=== PATIENT | male | born 2000 | race Caucasian/White ===

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

== ENCOUNTER 2020-03-05 17:42 | Emergency (ER) | payer OTHER, SELFPAY ==
[2020-03-05] VITALS (7 sets, daily range): BP systolic 101–119; BP diastolic 62–90; PULSE 68–103; RESP 14–16; TEMP 36.7; O2SAT 96–100
--- NOTE | 2020-03-05 18:16 | W.ED.SYNCOPE ---
HPI - Syncope General: Chief Complaint: Syncope Stated Complaint: NAUSEA, SYNCOPE Time Seen by Provider: 03/05/20 18:16 Source: patient Mode of arrival: ambulatory Limitations: no limitations History of Present Illness: HPI narrative: 20-year-old male comes in today with feeling of lightheadedness and presyncopal symptoms. Patient is a type I diabetic. Patient admits he does not routinely check his blood sugar. Patient states he usually gives 1 unit per 2 g of carbs routinely before each meal. And takes a basal acting insulin each night. Patient does do an occasional glucose check and then uses a sliding scale as needed. Patient reports being at work today and feeling lightheaded and like he was going to pass out. Patient reports some respiratory symptoms with a mild postnasal drip, sore throat, and cough for the last 2 to 3 days. Last glucose check was yesterday and it was 350. Review of Systems General: Reports: 10 or more systems reviewed and unremarkable except in HPI and below ENMT: Reports: throat pain Neuro: Reports: dizziness PFSH ED PFSH: Medical History (Updated 03/05/20 @ 21:31 by CHELSEA George) Diabetes Family History (Updated 07/09/19 @ 14:58 by Jr Morales MD) Other CAD (coronary artery disease) Social History (Updated 07/09/19 @ 14:58 by Jr Morales MD) Smoking and tobacco status: never smoked Alcohol intake: never Physical Exam Const: COMMON NORMALS: no acute distress and patient oriented x3 GENERAL APPEARANCE: cooperative HENMT: COMMON NORMALS: normocephalic, TM's normal bilaterally and Normal external nose present HEAD & SCALP: normal to inspection and normocephalic NOSE: Normal external nose present TYMPANIC MEMBRANE: TM's normal bilaterally MOUTH: Normal oral and palatal mucosa present THROAT: posterior oropharynx abnormal erythema and postnasal drainage Eye: GENERAL EYE: appearance normal, both eyes and all related structures Neck/C-Spine: COMMON NORMALS: full ROM Lymph: LYMPHATIC: no lymphadenopathy noted Chest: COMMONS NORMALS: normal inspection of the chest Resp: COMMON NORMALS: normal respiratory effort EFFORT & INSPECTION: Yes able to speak in complete sentences Cardio: COMMON NORMALS: regular rate and regular rhythm RATE: regular rate RHYTHM: regular rhythm GI: COMMON NORMALS: non-tender : COMMON NORMALS: Yes no CVA tenderness BLADDER/KIDNEY EXAM: Yes no CVA tenderness Back/Pelvis: COMMON NORMALS: no CVA tenderness and thoracic and lumbar spine normal to inspection Extremity: COMMON NORMALS: normal to inspection Neuro: COMMON NORMALS: patient oriented x3 and moves all extremities Psych: COMMON NORMALS: mental status grossly normal and cooperative Skin: COMMON NORMALS: no rashes or lesions noted GENERAL SKIN EXAM: no rashes or lesions noted Course ED course: 944, patient significantly improved after 2 L IV fluids and 10 units of insulin. Blood glucose has come down to 362. Reviewed exam with patient recommended better control of diabetes. Patient reported understanding and agreed to plan. Vital Signs: Vital signs: Vital Signs Temperature 98.0 F 03/05/20 18:11 Pulse Rate 74 03/05/20 20:30 Respiratory Rate 16 03/05/20 20:30 Blood Pressure 110/65 03/05/20 20:30 Pulse Oximetry 100 03/05/20 20:30 MDM - Syncope MDM Narrative: Medical decision making narrative: Patient comes in today for complaints of dizziness and feeling ill. On exam patient is mildly orthostatic with blood pressures. Respirations are even lungs are clear to auscultation. Abdomen soft nontender. Posterior pharynx has some clear drainage. Differential diagnosis includes but not limited to hyperglycemia, diabetic ketoacidosis, upper respiratory infection. Laboratory values noted the elevated blood glucose of 468, and a potassium of 5.6. Sodium was 128. Anion gap was 29. Suggesting patient probably has a mild ketoacidosis. Patient was hydrated with 2 L IV fluids and 10 units of insulin. Recheck a basic metabolic panel noticed an improvement of blood glucose of 360 and anion gap to 21. Patient was dosed 20 mEq potassium due to a drop from potassium to 4.4. Patient was able to hold fluids down. Reviewed with patient recommendations for better control of blood glucose with more frequent Accu-Chek and sliding scale and dosing of insulin. Patient is aware of his laxation of treatment. Patient was released to home with recommendations for follow-up or return to ER for worsening symptoms. Lab Data: Labs: Lab Results 03/05/20 03/05/20 03/05/20 Range/Units 18:34 18:35 19:07 WBC 6.6 (4.5-13.0) 10^3/ uL RBC 5.53 H (4.1-5.3) 10^6/u L Hgb 16.1 (11.7-16.6) g/dL Hct 46.7 (42.0-52.0) % MCV 84.4 (80-94) fL MCH 29.1 (28.0-34.0) pg MCHC 34.5 (30.0-36.0) g/dL RDW 11.0 L (12.1-15.1) % Plt Count 316 (130-400) 10^3/c mm MPV 9.3 (7.4-10.4) fL Neut % (Auto) 63.5 % Lymph % (Auto) 29.9 % [place] % (Auto) 4.1 % Eos % (Auto) 0.5 % Baso % (Auto) 0.6 % Neut # (Auto) 4.18 (1.8-8.0) 10^3/u L Lymph # (Auto) 2.0 (1.5-6.5) 10^3/u L [place] # (Auto) 0.3 (0.2-0.9) 10^3/u L Eos # (Auto) 0.0 (0.0-0.8) 10^3/u L Baso # (Auto) 0.0 (0.0-0.1) 10^3/u L Nucleated RBC % (a uto) 0 % Nucleated RBCs # 0.0 /100WBC Sodium (136-145) mmol/L Potassium (3.5-5.1) mmol/L Chloride (98-107) mmol/L Carbon Dioxide (22-29) mmol/L Anion Gap (5-19) BUN (6-20) mg/dL Creatinine (0.7-1.2) mg/dL GFR Calculation (90-130) mL/min Glucose (65-115) mg/dL Calculated Osmolal ity (285-295) mOsm/k g Calcium (8.5-10.5) mg/dL Total Bilirubin (0.15-1.2) mg/dL AST (0-40) U/L ALT (0-41) U/L Alkaline Phosphata se (40-130) IU/L Total Protein (6.6-8.7) g/dL Albumin (3.5-5.2) g/dL Globulin (1.3-4.6) g/dL Urine Color Yellow (Yellow) Urine Appearance Clear (CLEAR) Urine pH 5 (5-7) Ur Specific Gravit y 1.015 (1.005-1.030) Urine Protein Neg (Negative) Urine Glucose (UA) 4+ H (Normal) Urine Ketones 3+ H (Negative) Urine Blood Neg (Negative) Urine Nitrate Negative (Negative) Urine Bilirubin Neg (Negative) Urine Urobilinogen Neg (Negative) mg/dL Ur Leukocyte Cara ase Negative (Negative) Serum Ketones (Negative) Group A Strep Rapi d Negative (Negative) 03/05/20 03/05/20 Range/Units 19:07 21:20 WBC (4.5-13.0) 10^3/ uL RBC (4.1-5.3) 10^6/u L Hgb (11.7-16.6) g/dL Hct (42.0-52.0) % MCV (80-94) fL MCH (28.0-34.0) pg MCHC (30.0-36.0) g/dL RDW (12.1-15.1) % Plt Count (130-400) 10^3/c mm MPV (7.4-10.4) fL Neut % (Auto) % Lymph % (Auto) % [place] % (Auto) % Eos % (Auto) % Baso % (Auto) % Neut # (Auto) (1.8-8.0) 10^3/u L Lymph # (Auto) (1.5-6.5) 10^3/u L [place] # (Auto) (0.2-0.9) 10^3/u L Eos # (Auto) (0.0-0.8) 10^3/u L Baso # (Auto) (0.0-0.1) 10^3/u L Nucleated RBC % (a uto) % Nucleated RBCs # /100WBC Sodium 128 L 132 L (136-145) mmol/L Potassium 5.1 4.4 (3.5-5.1) mmol/L Chloride 88 L 95 L (98-107) mmol/L Carbon Dioxide 18 L 17 L (22-29) mmol/L Anion Gap 27.1 H 24.4 H (5-19) BUN 18 16 (6-20) mg/dL Creatinine 1.0 0.9 (0.7-1.2) mg/dL GFR Calculation 95.3 107.6 (90-130) mL/min Glucose 488 H 362 H (65-115) mg/dL Calculated Osmolal ity 290 290 (285-295) mOsm/k g Calcium 9.4 8.5 (8.5-10.5) mg/dL Total Bilirubin 0.5 (0.15-1.2) mg/dL AST 13 (0-40) U/L ALT 11 (0-41) U/L Alkaline Phosphata se 113 (40-130) IU/L Total Protein 7.4 (6.6-8.7) g/dL Albumin 4.3 (3.5-5.2) g/dL Globulin 3.1 (1.3-4.6) g/dL Urine Color (Yellow) Urine Appearance (CLEAR) Urine pH (5-7) Ur Specific Gravit y (1.005-1.030) Urine Protein (Negative) Urine Glucose (UA) (Normal) Urine Ketones (Negative) Urine Blood (Negative) Urine Nitrate (Negative) Urine Bilirubin (Negative) Urine Urobilinogen (Negative) mg/dL Ur Leukocyte Cara ase (Negative) Serum Ketones Positive H (Negative) Group A Strep Rapi d (Negative) EKG Data^: EKG 1: Attestation: I personally reviewed and interpreted this EKG as follows: (1900, normal sinus rhythm, 73 bpm regular without any ectopy or ST elevation. Artifact is noted on the EKG.) Discharge Plan Discharge Patient Disposition: Home Clinical Impression: Type 1 diabetes mellitus Qualifiers: Diabetes mellitus complication status: with hyperglycemia Qualified Code(s): E10.65 - Type 1 diabetes mellitus with hyperglycemia Condition: Stable Prescriptions: No Action Basaglar KwikPen U-100 Insulin 100 unit/mL (3 mL) insulin pen 60 unit SUBCUT BEDTIME RF: 0 Tylenol 325 mg Tablet 325 - 650 mg PO Q4H PRN (Reason: Pain) RF: 0 insulin aspart U-100 [Novolog Flexpen U-100 Insulin] 100 unit/mL (3 mL) Insulin Pen See Rx Instructions .ROUTE .COMPLEX RF: 0 Discharge Orders: Discharge Order (Routine); Ordered 03/05/20 Ordered By: Darian Valderrama Referrals: Loli Diaz APN [Primary Care Provider] - Patient Instructions: Diabetic Ketoacidosis (ED) Activity Restrictions/Additional Instructions: Keep better control of your blood sugar. Strongly recommend at least checking her blood sugar 3 times a day before each meal. Continue routine insulin as directed. Healthy diet and activity. Follow-up with primary care. Return to the emergency room for worsening symptoms or new concerns. Coding Level of Care Code ED Electrical Products Sales Engineer for Porsha Fwd Exam Comprehensive
--- NOTE | 2020-03-05 18:22 | ECG_ITS ---
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 Measurements Intervals [place] Rate: 73 P: 71 RI: 163 QRS: 78 QRSD: 101 T: 70 QT: 379 QTc: 419 Interpretive Statements SINUS RHYTHM Compared to ECG 07/07/2019 03:42:48 No significant changes Electronically Signed On 03-06-2020 18:35:42 CDT by Donavon Ayala M.D. [id number]
[2020-03-05 18:50] LABS: Add Urine Microscopic? NO
[2020-03-05 18:56] LABS: Bilirubin Urine Neg (Negative); Blood Urine Neg (Negative); Glucose Urine UA 4+ (Normal); Ketones Urine 3+ (Negative); Leukocyte Esterase Urine Negative (Negative); Nitrate Urine Negative (Negative); Protein Urine Neg (Negative); Specific Gravity, Urine 1.015 (1.005-1.030); Urine Appearance Clear (CLEAR); Urine Color Yellow (Yellow); Urobilinogen Urine Neg (Negative); pH Urine 5 (5-7)
[2020-03-05 18:56] LABS: Rapid Strep A Test Negative (Negative)
[2020-03-05 19:12] LABS: Basophils % 0.6 %; Eosinophils % 0.5 %; Hematocrit 46.7 % (42.0-52.0); Hemoglobin 16.1 g/dL (11.7-16.6); Lymphocytes % 29.9 %; Mean Corpuscular HGB Conc 34.5 g/dL (30.0-36.0); Mean Corpuscular Hemoglobin 29.1 pg (28.0-34.0); Mean Corpuscular Volume 84.4 fL (80-94); Mean Platelet Volume 9.3 fL (7.4-10.4); Monocytes # 0.3 10^3/uL (0.2-0.9); Monocytes % 4.1 %; Neutrophils # 4.18 10^3/uL (1.8-8.0); Neutrophils % 63.5 %; Nucleated Red Blood Cells % 0 %; Platelet Count 316 10^3/cmm (130-400); Red Blood Count 5.53 10^6/uL (4.1-5.3); White Blood Count 6.6 10^3/uL (4.5-13.0)
[2020-03-05 19:30] LABS: Alanine Aminotransferase 11 U/L (0-41); Albumin Level 4.3 g/dL (3.5-5.2); Alkaline Phosphatase 113 IU/L (40-130); Anion Gap 27.1 (5-19); Aspartate Amino Transferase 13 U/L (0-40); Blood Urea Nitrogen 18 mg/dL (6-20); Calcium 9.4 mg/dL (8.5-10.5); Carbon Dioxide 18 mmol/L (22-29); Chloride 88 mmol/L (98-107); Globulin 3.1 g/dL (1.3-4.6); Glomerular Filtration Rate 95.3 mL/min (90-130); Glucose 488 mg/dL (65-115); Osmolality Calculated 290 mOsm/kg (285-295); Potassium 5.1 mmol/L (3.5-5.1); Sodium 128 mmol/L (136-145); Total Bilirubin 0.5 mg/dL (0.15-1.2); Total Protein 7.4 g/dL (6.6-8.7)
[2020-03-05 19:35] LABS: Ketone (Acetest) Serum Positive (Negative)
[2020-03-05] MEDS: sodium chloride 0.9% 1,000 ML 999 ML IV ×2 (20:05→20:08)
[2020-03-05 21:40] LABS: Anion Gap 24.4 (5-19); Blood Urea Nitrogen 16 mg/dL (6-20); Calcium 8.5 mg/dL (8.5-10.5); Carbon Dioxide 17 mmol/L (22-29); Chloride 95 mmol/L (98-107); Glomerular Filtration Rate 107.6 mL/min (90-130); Glucose 362 mg/dL (65-115); Osmolality Calculated 290 mOsm/kg (285-295); Potassium 4.4 mmol/L (3.5-5.1); Sodium 132 mmol/L (136-145)
[2020-03-05] MEDS: potassium chloride ER 10 mEq Tablet 20 MEQ PO (21:55)
[2020-03-06 03:46] LABS: Glucose Point of Care 418 mg/dL (70-110)
== END 2020-03-05 22:02 | disposition home or self-care (01) ==
PROVIDERS: Emergency Provider Nurse Practitioner Family; PCP Nurse Practitioner Family
DX: E10.65 Type 1 diabetes mellitus with hyperglycemia (principal); Z79.4 Long term (current) use of insulin
CPT/HCPCS: 12345; 36415; 36416; 80048; 80053; 81003; 82009; 82962; 85025; 87081; 87880; 93005; 96360; 96361; 96372; 99284; J1815; J7030

== ENCOUNTER 2020-08-18 06:02 | Emergency (ER) | payer OTHER, SELFPAY ==
[2020-08-18 06:12] VITALS: BP 149/88; PULSE 81; RESP 17; TEMP 36.6; O2SAT 99; BMI 20.4
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
[2020-08-18 07:54] VITALS: BP 125/80; PULSE 75; O2SAT 97
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
[2020-08-18] MEDS: azithromycin 250 mg Tablet 1000 MG PO (10:22)
[2020-08-18] MEDS: ondansetron 4 MG Tablet PO (10:22)
[2020-08-18] MEDS: metroNIDAZOLE 500 MG Tablet 2000 MG PO (10:22)
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
[2020-08-18 10:30] LABS: Glucose Point of Care 546 mg/dL (70-110)
[2020-08-18] MEDS: emtricitabine/tenofovir 200 mg-300 mg TABLET 1 TAB PO (10:31)
[2020-08-18] MEDS: sodium chloride 0.9% 1,000 ML 999 ML IV (10:33)
[2020-08-18] MEDS: insulin regular-human 100 units/1 mL 10 UNIT IVP (10:33)
[2020-08-18 10:40] VITALS: BP 120/69; PULSE 69; RESP 16; O2SAT 99
[2020-08-18 10:47] LABS: ABG PCO2 31.2 mmHg (35-45); ABG PH Result 7.36 (7.35-7.45); Arterial Blood Gas Hematocrit 47.7 % (42-52); Base Excess ABG -6.5 mmol/L (-2.0-2.0); Blood Gas Allen Test Pos; Blood Gas Operator Identificat GD; Blood Gas Sample Site Radial, left; Blood Gas Sample Type Arterial; HCO3 ABG 17.6 mmol/L (22-26); Oxygen Device ROOM AIR
[2020-08-18 11:28] VITALS: BP 119/70; PULSE 83; RESP 16; O2SAT 97
[2020-08-18 11:30] LABS: Basophils # 0.1 10^3/uL (0.0-0.1); Basophils % 1.1 %; Eosinophils # 0.1 10^3/uL (0.0-0.8); Eosinophils % 1.6 %; Hematocrit 45.5 % (42.0-52.0); Hemoglobin 15.6 g/dL (11.7-16.6); Lymphocytes # 2.4 10^3/uL (1.5-6.5); Lymphocytes % 32.7 %; Mean Corpuscular HGB Conc 34.3 g/dL (30.0-36.0); Mean Corpuscular Hemoglobin 29.4 pg (28.0-34.0); Mean Corpuscular Volume 85.7 fL (80-94); Monocytes # 0.5 10^3/uL (0.2-0.9); Monocytes % 6.2 %; Neutrophils # 4.26 10^3/uL (1.8-8.0); Neutrophils % 57.7 %; Nucleated Red Blood Cells % 0 %; Platelet Count 296 10^3/cmm (130-400); Red Blood Count 5.31 10^6/uL (4.1-5.3); Red Cell Distribution Width 11.6 % (12.1-15.1); White Blood Count 7.4 10^3/uL (4.5-13.0)
[2020-08-18 11:36] LABS: Glucose Point of Care 367 mg/dL (70-110)
[2020-08-18 11:37] LABS: Alanine Aminotransferase 11 U/L (0-41); Albumin Level 4.4 g/dL (3.5-5.2); Alkaline Phosphatase 141 IU/L (40-130); Anion Gap 23.5 (5-19); Aspartate Amino Transferase 12 U/L (0-40); Blood Urea Nitrogen 16 mg/dL (6-20); Calcium 8.8 mg/dL (8.5-10.5); Carbon Dioxide 19 mmol/L (22-29); Chloride 90 mmol/L (98-107); Globulin 2.6 g/dL (1.3-4.6); Glomerular Filtration Rate 171.8 mL/min (90-130); Osmolality Calculated 291 mOsm/kg (285-295); Potassium 4.5 mmol/L (3.5-5.1); Sodium 128 mmol/L (136-145); Total Bilirubin 0.8 mg/dL (0.15-1.2)
[2020-08-18 11:51] LABS: Glucose 531 mg/dL (65-115)
[2020-08-18] MEDS: sodium chloride 0.9% 1,000 ML 1000 ML IV (11:55)
[2020-08-18 12:27] LABS: Glucose Point of Care 293 mg/dL (70-110)
[2020-08-18 15:42] LABS: HIV 1 & 2 Antibody Non-Reactive (Non-Reactiv); HIV 1 & 2 Antigen Non-Reactive (Non-Reactiv)
== END 2020-08-18 13:03 | disposition home or self-care (01) ==
PROVIDERS: Emergency Provider Emergency Medicine; PCP Nurse Practitioner Family
DX: T76.21XA Adult sexual abuse, suspected, initial encounter (principal); Z79.4 Long term (current) use of insulin; E11.9 Type 2 diabetes mellitus without complications
CPT/HCPCS: 36416; 36600; 80053; 82803; 82962; 85025; 87806; 96361; 96372; 96374; 96375; J0696; J1815; J7030; Q0144; Q0162

== ENCOUNTER 2021-01-24 09:29 | Emergency (ER) | payer OTHER, SELFPAY ==
[2021-01-24] VITALS (13 sets, daily range): BP systolic 85–107; BP diastolic 36–57; PULSE 76–108; RESP 16–18; TEMP 36.3; O2SAT 97–100; BMI 22.4
--- NOTE | 2021-01-24 09:34 | W.ED.GENADLT ---
HPI - General Adult General: Chief complaint: ER Hold Stated complaint: TYPE 1 DIABETIC: N/V/D, HIGH BLOOD SUGAR Time Seen by Provider: 01/24/21 09:33 History of Present Illness: HPI narrative: Mr. Duggan is a 20-year-old male with significant past medical history of type 1 diabetes who presents emergency department due to nausea, vomiting, and diarrhea. He has been at his baseline health and woke up at about 4 AM with sudden onset symptoms. He has generalized muscle aches and pains as well as malaise. He denies significant associated abdominal pain though does have mild cramping. Overall the course of symptoms has been worsening. The intensity is moderate to severe. He has had similar episodes in the past often associated with DKA. He reports his baseline blood glucose is 1 50-200. Review of Systems General: Reports: 10 or more systems reviewed and unremarkable except in HPI and below Narrative: CONSTITUTIONAL: denies fever, positive for fatigue, weakness EYES - denies pain, denies loss of vision EARS - denies ear issues. NOSE - denies congestion or rhinorrhea. THROAT - denies sore throat or difficulty swallowing. CARDIOVASCULAR - denies chest pain and palpitations RESPIRATORY - denies shortness of breath and cough GASTROINTESTINAL -see HPI GENITOURINARY - denies dysuria. Urinary frequency present MUSCULOSKELETAL- denies deformity or traumatic injury SKIN - denies rashes or new changed skin lesions NEUROLOGIC - denies focal weakness or sensory changes HEMATOLOGIC/LYMPHATIC - denies easy bruising or lymphadenopathy. [facility] ED PFSH: Medical History (Updated 01/24/21 @ 13:38 by Jr Morales MD) Diabetes Family History (Updated 07/09/19 @ 14:58 by Jr Morales MD) Other CAD (coronary artery disease) Social History (Updated 07/09/19 @ 14:58 by Jr Morales MD) Smoking and tobacco status: never smoked Alcohol intake: never Physical Exam Narrative: EXAM NARRATIVE: GENERAL/CONSTITUTIONAL -somewhat ill-appearing. No acute distress. Eyes - PERRL, no conjunctival injection ENMT - Atraumatic external nose and ears. Dry mucous membranes NECK - supple. trachea midline CARDIOVASCULAR - regular rate and rhythm. Peripheral pulses 2+ and equal RESPIRATORY -clear to auscultation bilaterally. No retractions or accessory muscle use. ABDOMEN/GI -generalized mildly tender. Nondistended. No tenderness to percussion or evidence of peritonitis MSK - Extremities without obvious deformity or tenderness to palpation SKIN - Warm, Dry NEURO - alert and appropriately oriented. Moves all extremities equally. PSYCH - Appropriate mood and affect Course ED course: - Patient was seen and evaluated by me at bedside - Patient placed on cardiac monitors, IV access obtained - Initial evaluation notable for mildly ill-appearing, no acute distress. Dry on clinical exam - Fluids and symptom control ordered - Labs notable for findings consistent with DKA -DKA treatment ordered with insulin drip - Upon serial reexamination after treatment the patient was mildly improved after fluid resuscitation - Based on patient history, evaluation, labs, and imaging as interpreted the most likely cause of the patient's condition is DKA in the context of type 1 diabetes - The results of ED evaluation were discussed with the patient including plan for admission due to requirement for level of care not available if discharged to prevent significant worsening/deterioration. -Hospitalist service was contacted and agreed to admit the patient - Patient was admitted without further deterioration or significant events. Vital Signs: Vital signs: Vital Signs Temperature 97.3 F L 01/24/21 09:36 Pulse Rate 84 01/25/21 05:02 Respiratory Rate 16 01/25/21 05:02 Blood Pressure 93/64 01/25/21 05:02 Pulse Oximetry 96 01/25/21 05:02 MDM - General Adult Medical Records: Attestation: I reviewed the patient's medical records. Lab Data: Attestation: I reviewed the patient's lab results. Labs: Lab Results 01/24/21 01/24/21 01/24/21 Range/Units 09:55 10:00 10:00 WBC 17.1 H (4.5-13.0) 10^3/ uL RBC 5.60 H (4.1-5.3) 10^6/u L Hgb 16.4 (11.7-16.6) g/dL Hct 48.5 (42.0-52.0) % MCV 86.6 (80-94) fl MCH 29.3 (28.0-34.0) pg MCHC 33.8 (30.0-36.0) g/dL RDW 11.5 L (12.1-15.1) % Plt Count 353 (130-400) 10^3/c mm MPV 9.5 (7.4-10.4) fL Neut % (Auto) 76.9 % Lymph % (Auto) 17.2 % Powell % (Auto) 2.5 % Eos % (Auto) 0.2 % Baso % (Auto) 0.8 % Neut # (Auto) 13.11 H (1.8-8.0) 10^3/u L Lymph # (Auto) 2.9 (1.5-6.5) 10^3/u L Powell # (Auto) 0.4 (0.2-0.9) 10^3/u L Eos # (Auto) 0.0 (0.0-0.8) 10^3/u L Baso # (Auto) 0.1 (0.0-0.1) 10^3/u L Nucleated RBC % (a uto) 0 % Nucleated RBCs # 0.0 /100WBC Specimen Type Venous Sample Site Not Reportable Tong Test N/a VBG pH 7.17 L* (7.32-7.42) VBG pCO2 38.0 L (41-51) mmHg VBG pO2 42.6 H (25-40) mmHg VBG HCO3 14.1 L (24-28) mmol/L VBG Base Excess -13.7 L (-3.0-3.0) mmol/ L VBG Hematocrit 51.2 (42-52) % O2 Delivery Device Not Reportable FiO2 21.0 % Crop Specialist ID Cak Sodium 131 L (136-145) mmol/L Potassium 4.8 (3.5-5.1) mmol/L Chloride 89 L (98-107) mmol/L Carbon Dioxide 13 L (22-29) mmol/L Anion Gap 33.8 H (5-19) BUN 22 H (6-20) mg/dL Creatinine 1.0 (0.7-1.2) mg/dL GFR Calculation 95.3 (90-130) mL/min Glucose 583 H* (65-115) mg/dL POC Glucose (70-110) mg/dL Estimat Average Gl ucose Hemoglobin A1c (4.0-6.0) % Calculated Osmolal ity 302 H (285-295) mOsm/k g Lactate (0.5-2.2) mmol/L Calcium 9.3 (8.5-10.5) mg/dL Phosphorus (2.5-4.5) mg/dL Magnesium (1.7-2.3) mg/dL Total Bilirubin 0.8 (0.15-1.2) mg/dL AST 11 (0-40) U/L ALT 13 (0-41) U/L Alkaline Phosphata se 149 H (40-130) IU/L Total Protein 7.1 (6.6-8.7) g/dL Albumin 4.1 (3.5-5.2) g/dL Globulin 3.0 (1.3-4.6) g/dL Lipase 55 (13-60) U/L TSH (0.27-4.20) uIU/ mL Urine Color (Yellow) Urine Appearance (CLEAR) Urine pH (5-7) Ur Specific Gravit y (1.005-1.030) Urine Protein (Negative) Urine Glucose (UA) (Normal) Urine Ketones (Negative) Urine Blood (Negative) Urine Nitrate (Negative) Urine Bilirubin (Negative) Urine Urobilinogen (Negative) mg/dL Ur Leukocyte Cara ase (Negative) Serum Ketones (Negative) SARS-CoV-2 Ag (Rap id) (Negative) 01/24/21 01/24/21 01/24/21 Range/Units 10:00 10:00 10:00 WBC (4.5-13.0) 10^3/ uL RBC (4.1-5.3) 10^6/u L Hgb (11.7-16.6) g/dL Hct (42.0-52.0) % MCV (80-94) fl MCH (28.0-34.0) pg MCHC (30.0-36.0) g/dL RDW (12.1-15.1) % Plt Count (130-400) 10^3/c mm MPV (7.4-10.4) fL Neut % (Auto) % Lymph % (Auto) % Powell % (Auto) % Eos % (Auto) % Baso % (Auto) % Neut # (Auto) (1.8-8.0) 10^3/u L Lymph # (Auto) (1.5-6.5) 10^3/u L Powell # (Auto) (0.2-0.9) 10^3/u L Eos # (Auto) (0.0-0.8) 10^3/u L Baso # (Auto) (0.0-0.1) 10^3/u L Nucleated RBC % (a uto) % Nucleated RBCs # /100WBC Specimen Type Sample Site Tong Test VBG pH (7.32-7.42) VBG pCO2 (41-51) mmHg VBG pO2 (25-40) mmHg VBG HCO3 (24-28) mmol/L VBG Base Excess (-3.0-3.0) mmol/ L VBG Hematocrit (42-52) % O2 Delivery Device FiO2 % Crop Specialist ID Sodium (136-145) mmol/L Potassium (3.5-5.1) mmol/L Chloride (98-107) mmol/L Carbon Dioxide (22-29) mmol/L Anion Gap (5-19) BUN (6-20) mg/dL Creatinine (0.7-1.2) mg/dL GFR Calculation (90-130) mL/min Glucose (65-115) mg/dL POC Glucose (70-110) mg/dL Estimat Average Gl ucose Hemoglobin A1c (4.0-6.0) % Calculated Osmolal ity (285-295) mOsm/k g Lactate 3.2 H (0.5-2.2) mmol/L Calcium (8.5-10.5) mg/dL Phosphorus 4.8 H (2.5-4.5) mg/dL Magnesium 2.0 (1.7-2.3) mg/dL Total Bilirubin (0.15-1.2) mg/dL AST (0-40) U/L ALT (0-41) U/L Alkaline Phosphata se (40-130) IU/L Total Protein (6.6-8.7) g/dL Albumin (3.5-5.2) g/dL Globulin (1.3-4.6) g/dL Lipase (13-60) U/L TSH (0.27-4.20) uIU/ mL Urine Color (Yellow) Urine Appearance (CLEAR) Urine pH (5-7) Ur Specific Gravit y (1.005-1.030) Urine Protein (Negative) Urine Glucose (UA) (Normal) Urine Ketones (Negative) Urine Blood (Negative) Urine Nitrate (Negative) Urine Bilirubin (Negative) Urine Urobilinogen (Negative) mg/dL Ur Leukocyte Cara ase (Negative) Serum Ketones Positive H (Negative) SARS-CoV-2 Ag (Rap id) (Negative) 01/24/21 01/24/21 01/24/21 Range/Units 10:12 10:57 13:06 WBC (4.5-13.0) 10^3/ uL RBC (4.1-5.3) 10^6/u L Hgb (11.7-16.6) g/dL Hct (42.0-52.0) % MCV (80-94) fl MCH (28.0-34.0) pg MCHC (30.0-36.0) g/dL RDW (12.1-15.1) % Plt Count (130-400) 10^3/c mm MPV (7.4-10.4) fL Neut % (Auto) % Lymph % (Auto) % Powell % (Auto) % Eos % (Auto) % Baso % (Auto) % Neut # (Auto) (1.8-8.0) 10^3/u L Lymph # (Auto) (1.5-6.5) 10^3/u L Powell # (Auto) (0.2-0.9) 10^3/u L Eos # (Auto) (0.0-0.8) 10^3/u L Baso # (Auto) (0.0-0.1) 10^3/u L Nucleated RBC % (a uto) % Nucleated RBCs # /100WBC Specimen Type Sample Site Tong Test VBG pH (7.32-7.42) VBG pCO2 (41-51) mmHg VBG pO2 (25-40) mmHg VBG HCO3 (24-28) mmol/L VBG Base Excess (-3.0-3.0) mmol/ L VBG Hematocrit (42-52) % O2 Delivery Device FiO2 % Crop Specialist ID Sodium (136-145) mmol/L Potassium (3.5-5.1) mmol/L Chloride (98-107) mmol/L Carbon Dioxide (22-29) mmol/L Anion Gap (5-19) BUN (6-20) mg/dL Creatinine (0.7-1.2) mg/dL GFR Calculation (90-130) mL/min Glucose (65-115) mg/dL POC Glucose > 600 H* 565 H* 532 H* (70-110) mg/dL Estimat Average Gl ucose Hemoglobin A1c (4.0-6.0) % Calculated Osmolal ity (285-295) mOsm/k g Lactate (0.5-2.2) mmol/L Calcium (8.5-10.5) mg/dL Phosphorus (2.5-4.5) mg/dL Magnesium (1.7-2.3) mg/dL Total Bilirubin (0.15-1.2) mg/dL AST (0-40) U/L ALT (0-41) U/L Alkaline Phosphata se (40-130) IU/L Total Protein (6.6-8.7) g/dL Albumin (3.5-5.2) g/dL Globulin (1.3-4.6) g/dL Lipase (13-60) U/L TSH (0.27-4.20) uIU/ mL Urine Color (Yellow) Urine Appearance (CLEAR) Urine pH (5-7) Ur Specific Gravit y (1.005-1.030) Urine Protein (Negative) Urine Glucose (UA) (Normal) Urine Ketones (Negative) Urine Blood (Negative) Urine Nitrate (Negative) Urine Bilirubin (Negative) Urine Urobilinogen (Negative) mg/dL Ur Leukocyte Cara ase (Negative) Serum Ketones (Negative) SARS-CoV-2 Ag (Rap id) (Negative) 01/24/21 01/24/21 01/24/21 Range/Units 13:11 14:08 14:20 WBC (4.5-13.0) 10^3/ uL RBC (4.1-5.3) 10^6/u L Hgb (11.7-16.6) g/dL Hct (42.0-52.0) % MCV (80-94) fl MCH (28.0-34.0) pg MCHC (30.0-36.0) g/dL RDW (12.1-15.1) % Plt Count (130-400) 10^3/c mm MPV (7.4-10.4) fL Neut % (Auto) % Lymph % (Auto) % Powell % (Auto) % Eos % (Auto) % Baso % (Auto) % Neut # (Auto) (1.8-8.0) 10^3/u L Lymph # (Auto) (1.5-6.5) 10^3/u L Powell # (Auto) (0.2-0.9) 10^3/u L Eos # (Auto) (0.0-0.8) 10^3/u L Baso # (Auto) (0.0-0.1) 10^3/u L Nucleated RBC % (a uto) % Nucleated RBCs # /100WBC Specimen Type Sample Site Tong Test VBG pH (7.32-7.42) VBG pCO2 (41-51) mmHg VBG pO2 (25-40) mmHg VBG HCO3 (24-28) mmol/L VBG Base Excess (-3.0-3.0) mmol/ L VBG Hematocrit (42-52) % O2 Delivery Device FiO2 % Crop Specialist ID Sodium (136-145) mmol/L Potassium (3.5-5.1) mmol/L Chloride (98-107) mmol/L Carbon Dioxide (22-29) mmol/L Anion Gap (5-19) BUN (6-20) mg/dL Creatinine (0.7-1.2) mg/dL GFR Calculation (90-130) mL/min Glucose (65-115) mg/dL POC Glucose 473 H (70-110) mg/dL Estimat Average Gl ucose Hemoglobin A1c (4.0-6.0) % Calculated Osmolal ity (285-295) mOsm/k g Lactate (0.5-2.2) mmol/L Calcium (8.5-10.5) mg/dL Phosphorus (2.5-4.5) mg/dL Magnesium (1.7-2.3) mg/dL Total Bilirubin (0.15-1.2) mg/dL AST (0-40) U/L ALT (0-41) U/L Alkaline Phosphata se (40-130) IU/L Total Protein (6.6-8.7) g/dL Albumin (3.5-5.2) g/dL Globulin (1.3-4.6) g/dL Lipase (13-60) U/L TSH (0.27-4.20) uIU/ mL Urine Color Straw (Yellow) Urine Appearance Clear (CLEAR) Urine pH 5 (5-7) Ur Specific Gravit y 1.015 (1.005-1.030) Urine Protein Neg (Negative) Urine Glucose (UA) 4+ H (Normal) Urine Ketones 3+ H (Negative) Urine Blood Neg (Negative) Urine Nitrate Negative (Negative) Urine Bilirubin Neg (Negative) Urine Urobilinogen Norm (Negative) mg/dL Ur Leukocyte Cara ase Negative (Negative) Serum Ketones (Negative) SARS-CoV-2 Ag (Rap id) Negative (Negative) 01/24/21 01/24/21 01/24/21 Range/Units 15:10 15:10 15:10 WBC (4.5-13.0) 10^3/ uL RBC (4.1-5.3) 10^6/u L Hgb (11.7-16.6) g/dL Hct (42.0-52.0) % MCV (80-94) fl MCH (28.0-34.0) pg MCHC (30.0-36.0) g/dL RDW (12.1-15.1) % Plt Count (130-400) 10^3/c mm MPV (7.4-10.4) fL Neut % (Auto) % Lymph % (Auto) % Powell % (Auto) % Eos % (Auto) % Baso % (Auto) % Neut # (Auto) (1.8-8.0) 10^3/u L Lymph # (Auto) (1.5-6.5) 10^3/u L Powell # (Auto) (0.2-0.9) 10^3/u L Eos # (Auto) (0.0-0.8) 10^3/u L Baso # (Auto) (0.0-0.1) 10^3/u L Nucleated RBC % (a uto) % Nucleated RBCs # /100WBC Specimen Type Sample Site Tong Test VBG pH (7.32-7.42) VBG pCO2 (41-51) mmHg VBG pO2 (25-40) mmHg VBG HCO3 (24-28) mmol/L VBG Base Excess (-3.0-3.0) mmol/ L VBG Hematocrit (42-52) % O2 Delivery Device FiO2 % Crop Specialist ID Sodium 137 (136-145) mmol/L Potassium 4.0 (3.5-5.1) mmol/L Chloride 100 (98-107) mmol/L Carbon Dioxide 13 L (22-29) mmol/L Anion Gap 28.0 H (5-19) BUN 23 H (6-20) mg/dL Creatinine 1.0 (0.7-1.2) mg/dL GFR Calculation 95.3 (90-130) mL/min Glucose 350 H (65-115) mg/dL POC Glucose (70-110) mg/dL Estimat Average Gl ucose 263 Hemoglobin A1c 10.8 H (4.0-6.0) % Calculated Osmolal ity 302 H (285-295) mOsm/k g Lactate 1.4 (0.5-2.2) mmol/L Calcium 8.3 L (8.5-10.5) mg/dL Phosphorus 3.8 (2.5-4.5) mg/dL Magnesium 2.1 (1.7-2.3) mg/dL Total Bilirubin (0.15-1.2) mg/dL AST (0-40) U/L ALT (0-41) U/L Alkaline Phosphata se (40-130) IU/L Total Protein (6.6-8.7) g/dL Albumin (3.5-5.2) g/dL Globulin (1.3-4.6) g/dL Lipase (13-60) U/L TSH 0.59 (0.27-4.20) uIU/ mL Urine Color (Yellow) Urine Appearance (CLEAR) Urine pH (5-7) Ur Specific Gravit y (1.005-1.030) Urine Protein (Negative) Urine Glucose (UA) (Normal) Urine Ketones (Negative) Urine Blood (Negative) Urine Nitrate (Negative) Urine Bilirubin (Negative) Urine Urobilinogen (Negative) mg/dL Ur Leukocyte Cara ase (Negative) Serum Ketones (Negative) SARS-CoV-2 Ag (Rap id) (Negative) 01/24/21 01/24/21 01/24/21 Range/Units 15:20 16:05 17:02 WBC (4.5-13.0) 10^3/ uL RBC (4.1-5.3) 10^6/u L Hgb (11.7-16.6) g/dL Hct (42.0-52.0) % MCV (80-94) fl MCH (28.0-34.0) pg MCHC (30.0-36.0) g/dL RDW (12.1-15.1) % Plt Count (130-400) 10^3/c mm MPV (7.4-10.4) fL Neut % (Auto) % Lymph % (Auto) % Powell % (Auto) % Eos % (Auto) % Baso % (Auto) % Neut # (Auto) (1.8-8.0) 10^3/u L Lymph # (Auto) (1.5-6.5) 10^3/u L Powell # (Auto) (0.2-0.9) 10^3/u L Eos # (Auto) (0.0-0.8) 10^3/u L Baso # (Auto) (0.0-0.1) 10^3/u L Nucleated RBC % (a uto) % Nucleated RBCs # /100WBC Specimen Type Sample Site Tong Test VBG pH (7.32-7.42) VBG pCO2 (41-51) mmHg VBG pO2 (25-40) mmHg VBG HCO3 (24-28) mmol/L VBG Base Excess (-3.0-3.0) mmol/ L VBG Hematocrit (42-52) % O2 Delivery Device FiO2 % Crop Specialist ID Sodium (136-145) mmol/L Potassium (3.5-5.1) mmol/L Chloride (98-107) mmol/L Carbon Dioxide (22-29) mmol/L Anion Gap (5-19) BUN (6-20) mg/dL Creatinine (0.7-1.2) mg/dL GFR Calculation (90-130) mL/min Glucose (65-115) mg/dL POC Glucose 361 H 284 H 276 H (70-110) mg/dL Estimat Average Gl ucose Hemoglobin A1c (4.0-6.0) % Calculated Osmolal ity (285-295) mOsm/k g Lactate (0.5-2.2) mmol/L Calcium (8.5-10.5) mg/dL Phosphorus (2.5-4.5) mg/dL Magnesium (1.7-2.3) mg/dL Total Bilirubin (0.15-1.2) mg/dL AST (0-40) U/L ALT (0-41) U/L Alkaline Phosphata se (40-130) IU/L Total Protein (6.6-8.7) g/dL Albumin (3.5-5.2) g/dL Globulin (1.3-4.6) g/dL Lipase (13-60) U/L TSH (0.27-4.20) uIU/ mL Urine Color (Yellow) Urine Appearance (CLEAR) Urine pH (5-7) Ur Specific Gravit y (1.005-1.030) Urine Protein (Negative) Urine Glucose (UA) (Normal) Urine Ketones (Negative) Urine Blood (Negative) Urine Nitrate (Negative) Urine Bilirubin (Negative) Urine Urobilinogen (Negative) mg/dL Ur Leukocyte Cara ase (Negative) Serum Ketones (Negative) SARS-CoV-2 Ag (Rap id) (Negative) 01/24/21 01/24/21 01/24/21 Range/Units 18:10 18:36 18:54 WBC (4.5-13.0) 10^3/ uL RBC (4.1-5.3) 10^6/u L Hgb (11.7-16.6) g/dL Hct (42.0-52.0) % MCV (80-94) fl MCH (28.0-34.0) pg MCHC (30.0-36.0) g/dL RDW (12.1-15.1) % Plt Count (130-400) 10^3/c mm MPV (7.4-10.4) fL Neut % (Auto) % Lymph % (Auto) % Powell % (Auto) % Eos % (Auto) % Baso % (Auto) % Neut # (Auto) (1.8-8.0) 10^3/u L Lymph # (Auto) (1.5-6.5) 10^3/u L Powell # (Auto) (0.2-0.9) 10^3/u L Eos # (Auto) (0.0-0.8) 10^3/u L Baso # (Auto) (0.0-0.1) 10^3/u L Nucleated RBC % (a uto) % Nucleated RBCs # /100WBC Specimen Type Sample Site Tong Test VBG pH (7.32-7.42) VBG pCO2 (41-51) mmHg VBG pO2 (25-40) mmHg VBG HCO3 (24-28) mmol/L VBG Base Excess (-3.0-3.0) mmol/ L VBG Hematocrit (42-52) % O2 Delivery Device FiO2 % Crop Specialist ID Sodium Cancelled (136-145) mmol/L Potassium Cancelled (3.5-5.1) mmol/L Chloride Cancelled (98-107) mmol/L Carbon Dioxide Cancelled (22-29) mmol/L Anion Gap Cancelled (5-19) BUN Cancelled (6-20) mg/dL Creatinine Cancelled (0.7-1.2) mg/dL GFR Calculation Cancelled (90-130) mL/min Glucose Cancelled (65-115) mg/dL POC Glucose 207 H 187 H (70-110) mg/dL Estimat Average Gl ucose Hemoglobin A1c (4.0-6.0) % Calculated Osmolal ity Cancelled (285-295) mOsm/k g Lactate (0.5-2.2) mmol/L Calcium Cancelled (8.5-10.5) mg/dL Phosphorus Cancelled (2.5-4.5) mg/dL Magnesium Cancelled (1.7-2.3) mg/dL Total Bilirubin (0.15-1.2) mg/dL AST (0-40) U/L ALT (0-41) U/L Alkaline Phosphata se (40-130) IU/L Total Protein (6.6-8.7) g/dL Albumin (3.5-5.2) g/dL Globulin (1.3-4.6) g/dL Lipase (13-60) U/L TSH (0.27-4.20) uIU/ mL Urine Color (Yellow) Urine Appearance (CLEAR) Urine pH (5-7) Ur Specific Gravit y (1.005-1.030) Urine Protein (Negative) Urine Glucose (UA) (Normal) Urine Ketones (Negative) Urine Blood (Negative) Urine Nitrate (Negative) Urine Bilirubin (Negative) Urine Urobilinogen (Negative) mg/dL Ur Leukocyte Cara ase (Negative) Serum Ketones (Negative) SARS-CoV-2 Ag (Rap id) (Negative) 01/24/21 01/24/21 01/24/21 Range/Units 20:10 22:37 23:46 WBC (4.5-13.0) 10^3/ uL RBC (4.1-5.3) 10^6/u L Hgb (11.7-16.6) g/dL Hct (42.0-52.0) % MCV (80-94) fl MCH (28.0-34.0) pg MCHC (30.0-36.0) g/dL RDW (12.1-15.1) % Plt Count (130-400) 10^3/c mm MPV (7.4-10.4) fL Neut % (Auto) % Lymph % (Auto) % Powell % (Auto) % Eos % (Auto) % Baso % (Auto) % Neut # (Auto) (1.8-8.0) 10^3/u L Lymph # (Auto) (1.5-6.5) 10^3/u L Powell # (Auto) (0.2-0.9) 10^3/u L Eos # (Auto) (0.0-0.8) 10^3/u L Baso # (Auto) (0.0-0.1) 10^3/u L Nucleated RBC % (a uto) % Nucleated RBCs # /100WBC Specimen Type Sample Site Tong Test VBG pH (7.32-7.42) VBG pCO2 (41-51) mmHg VBG pO2 (25-40) mmHg VBG HCO3 (24-28) mmol/L VBG Base Excess (-3.0-3.0) mmol/ L VBG Hematocrit (42-52) % O2 Delivery Device FiO2 % Crop Specialist ID Sodium 138 137 (136-145) mmol/L Potassium 4.0 3.8 (3.5-5.1) mmol/L Chloride 105 109 H (98-107) mmol/L Carbon Dioxide 21 L 21 L (22-29) mmol/L Anion Gap 16.0 10.8 (5-19) BUN 19 17 (6-20) mg/dL Creatinine 0.8 0.7 (0.7-1.2) mg/dL GFR Calculation 123.2 143.8 H (90-130) mL/min Glucose 159 H 88 (65-115) mg/dL POC Glucose 110 (70-110) mg/dL Estimat Average Gl ucose Hemoglobin A1c (4.0-6.0) % Calculated Osmolal ity 292 285 (285-295) mOsm/k g Lactate (0.5-2.2) mmol/L Calcium 8.2 L 7.7 L (8.5-10.5) mg/dL Phosphorus 2.7 2.6 (2.5-4.5) mg/dL Magnesium 1.9 1.7 (1.7-2.3) mg/dL Total Bilirubin (0.15-1.2) mg/dL AST (0-40) U/L ALT (0-41) U/L Alkaline Phosphata se (40-130) IU/L Total Protein (6.6-8.7) g/dL Albumin (3.5-5.2) g/dL Globulin (1.3-4.6) g/dL Lipase (13-60) U/L TSH (0.27-4.20) uIU/ mL Urine Color (Yellow) Urine Appearance (CLEAR) Urine pH (5-7) Ur Specific Gravit y (1.005-1.030) Urine Protein (Negative) Urine Glucose (UA) (Normal) Urine Ketones (Negative) Urine Blood (Negative) Urine Nitrate (Negative) Urine Bilirubin (Negative) Urine Urobilinogen (Negative) mg/dL Ur Leukocyte Cara ase (Negative) Serum Ketones (Negative) SARS-CoV-2 Ag (Rap id) (Negative) 01/25/21 01/25/21 01/25/21 Range/Units 01:27 02:40 05:46 WBC 13.6 H (4.5-13.0) 10^3/ uL RBC 4.52 (4.1-5.3) 10^6/u L Hgb 13.5 (11.7-16.6) g/dL Hct 37.7 L (42.0-52.0) % MCV 83.4 (80-94) fl MCH 29.9 (28.0-34.0) pg MCHC 35.8 D (30.0-36.0) g/dL RDW 11.6 L (12.1-15.1) % Plt Count 312 (130-400) 10^3/c mm MPV 9.7 (7.4-10.4) fL Neut % (Auto) 60.8 % Lymph % (Auto) 32.2 % Powell % (Auto) 5.7 % Eos % (Auto) 0.4 % Baso % (Auto) 0.4 % Neut # (Auto) 8.26 H (1.8-8.0) 10^3/u L Lymph # (Auto) 4.4 (1.5-6.5) 10^3/u L Powell # (Auto) 0.8 (0.2-0.9) 10^3/u L Eos # (Auto) 0.1 (0.0-0.8) 10^3/u L Baso # (Auto) 0.1 (0.0-0.1) 10^3/u L Nucleated RBC % (a uto) 0 % Nucleated RBCs # 0.0 /100WBC Specimen Type Sample Site Tong Test VBG pH (7.32-7.42) VBG pCO2 (41-51) mmHg VBG pO2 (25-40) mmHg VBG HCO3 (24-28) mmol/L VBG Base Excess (-3.0-3.0) mmol/ L VBG Hematocrit (42-52) % O2 Delivery Device FiO2 % Crop Specialist ID Sodium 137 (136-145) mmol/L Potassium 4.2 (3.5-5.1) mmol/L Chloride 108 H (98-107) mmol/L Carbon Dioxide 20 L (22-29) mmol/L Anion Gap 13.2 (5-19) BUN 16 (6-20) mg/dL Creatinine 0.7 (0.7-1.2) mg/dL GFR Calculation 143.8 H (90-130) mL/min Glucose 130 H (65-115) mg/dL POC Glucose 103 (70-110) mg/dL Estimat Average Gl ucose Hemoglobin A1c (4.0-6.0) % Calculated Osmolal ity 287 (285-295) mOsm/k g Lactate (0.5-2.2) mmol/L Calcium 8.0 L (8.5-10.5) mg/dL Phosphorus 3.6 (2.5-4.5) mg/dL Magnesium 1.7 (1.7-2.3) mg/dL Total Bilirubin (0.15-1.2) mg/dL AST (0-40) U/L ALT (0-41) U/L Alkaline Phosphata se (40-130) IU/L Total Protein (6.6-8.7) g/dL Albumin (3.5-5.2) g/dL Globulin (1.3-4.6) g/dL Lipase (13-60) U/L TSH (0.27-4.20) uIU/ mL Urine Color (Yellow) Urine Appearance (CLEAR) Urine pH (5-7) Ur Specific Gravit y (1.005-1.030) Urine Protein (Negative) Urine Glucose (UA) (Normal) Urine Ketones (Negative) Urine Blood (Negative) Urine Nitrate (Negative) Urine Bilirubin (Negative) Urine Urobilinogen (Negative) mg/dL Ur Leukocyte Cara ase (Negative) Serum Ketones (Negative) SARS-CoV-2 Ag (Rap id) (Negative) 01/25/21 01/25/21 01/25/21 Range/Units 06:42 08:23 10:24 WBC (4.5-13.0) 10^3/ uL RBC (4.1-5.3) 10^6/u L Hgb (11.7-16.6) g/dL Hct (42.0-52.0) % MCV (80-94) fl MCH (28.0-34.0) pg MCHC (30.0-36.0) g/dL RDW (12.1-15.1) % Plt Count (130-400) 10^3/c mm MPV (7.4-10.4) fL Neut % (Auto) % Lymph % (Auto) % Powell % (Auto) % Eos % (Auto) % Baso % (Auto) % Neut # (Auto) (1.8-8.0) 10^3/u L Lymph # (Auto) (1.5-6.5) 10^3/u L Powell # (Auto) (0.2-0.9) 10^3/u L Eos # (Auto) (0.0-0.8) 10^3/u L Baso # (Auto) (0.0-0.1) 10^3/u L Nucleated RBC % (a uto) % Nucleated RBCs # /100WBC Specimen Type Sample Site Tong Test VBG pH (7.32-7.42) VBG pCO2 (41-51) mmHg VBG pO2 (25-40) mmHg VBG HCO3 (24-28) mmol/L VBG Base Excess (-3.0-3.0) mmol/ L VBG Hematocrit (42-52) % O2 Delivery Device FiO2 % Crop Specialist ID Sodium (136-145) mmol/L Potassium (3.5-5.1) mmol/L Chloride (98-107) mmol/L Carbon Dioxide (22-29) mmol/L Anion Gap (5-19) BUN (6-20) mg/dL Creatinine (0.7-1.2) mg/dL GFR Calculation (90-130) mL/min Glucose (65-115) mg/dL POC Glucose 122 H 134 H 265 H (70-110) mg/dL Estimat Average Gl ucose Hemoglobin A1c (4.0-6.0) % Calculated Osmolal ity (285-295) mOsm/k g Lactate (0.5-2.2) mmol/L Calcium (8.5-10.5) mg/dL Phosphorus (2.5-4.5) mg/dL Magnesium (1.7-2.3) mg/dL Total Bilirubin (0.15-1.2) mg/dL AST (0-40) U/L ALT (0-41) U/L Alkaline Phosphata se (40-130) IU/L Total Protein (6.6-8.7) g/dL Albumin (3.5-5.2) g/dL Globulin (1.3-4.6) g/dL Lipase (13-60) U/L TSH (0.27-4.20) uIU/ mL Urine Color (Yellow) Urine Appearance (CLEAR) Urine pH (5-7) Ur Specific Gravit y (1.005-1.030) Urine Protein (Negative) Urine Glucose (UA) (Normal) Urine Ketones (Negative) Urine Blood (Negative) Urine Nitrate (Negative) Urine Bilirubin (Negative) Urine Urobilinogen (Negative) mg/dL Ur Leukocyte Cara ase (Negative) Serum Ketones (Negative) SARS-CoV-2 Ag (Rap id) (Negative) 08/21/21 Range/Units 12:04 WBC (4.5-13.0) 10^3/ uL RBC (4.1-5.3) 10^6/u L Hgb (11.7-16.6) g/dL Hct (42.0-52.0) % MCV (80-94) fl MCH (28.0-34.0) pg MCHC (30.0-36.0) g/dL RDW (12.1-15.1) % Plt Count (130-400) 10^3/c mm MPV (7.4-10.4) fL Neut % (Auto) % Lymph % (Auto) % Powell % (Auto) % Eos % (Auto) % Baso % (Auto) % Neut # (Auto) (1.8-8.0) 10^3/u L Lymph # (Auto) (1.5-6.5) 10^3/u L Powell # (Auto) (0.2-0.9) 10^3/u L Eos # (Auto) (0.0-0.8) 10^3/u L Baso # (Auto) (0.0-0.1) 10^3/u L Nucleated RBC % (a uto) % Nucleated RBCs # /100WBC Specimen Type Sample Site Tong Test VBG pH (7.32-7.42) VBG pCO2 (41-51) mmHg VBG pO2 (25-40) mmHg VBG HCO3 (24-28) mmol/L VBG Base Excess (-3.0-3.0) mmol/ L VBG Hematocrit (42-52) % O2 Delivery Device FiO2 % Crop Specialist ID Sodium (136-145) mmol/L Potassium (3.5-5.1) mmol/L Chloride (98-107) mmol/L Carbon Dioxide (22-29) mmol/L Anion Gap (5-19) BUN (6-20) mg/dL Creatinine (0.7-1.2) mg/dL GFR Calculation (90-130) mL/min Glucose (65-115) mg/dL POC Glucose 246 H (70-110) mg/dL Estimat Average Gl ucose Hemoglobin A1c (4.0-6.0) % Calculated Osmolal ity (285-295) mOsm/k g Lactate (0.5-2.2) mmol/L Calcium (8.5-10.5) mg/dL Phosphorus (2.5-4.5) mg/dL Magnesium (1.7-2.3) mg/dL Total Bilirubin (0.15-1.2) mg/dL AST (0-40) U/L ALT (0-41) U/L Alkaline Phosphata se (40-130) IU/L Total Protein (6.6-8.7) g/dL Albumin (3.5-5.2) g/dL Globulin (1.3-4.6) g/dL Lipase (13-60) U/L TSH (0.27-4.20) uIU/ mL Urine Color (Yellow) Urine Appearance (CLEAR) Urine pH (5-7) Ur Specific Gravit y (1.005-1.030) Urine Protein (Negative) Urine Glucose (UA) (Normal) Urine Ketones (Negative) Urine Blood (Negative) Urine Nitrate (Negative) Urine Bilirubin (Negative) Urine Urobilinogen (Negative) mg/dL Ur Leukocyte Cara ase (Negative) Serum Ketones (Negative) SARS-CoV-2 Ag (Rap id) (Negative) Discharge Plan Discharge Patient Disposition: Home Condition: Stable Prescriptions: No Action Basaglar KwikPen U-100 Insulin 100 unit/mL (3 mL) insulin pen 60 unit SUBCUT BEDTIME RF: 0 insulin aspart U-100 [Novolog Flexpen U-100 Insulin] 100 unit/mL (3 mL) Insulin Pen See Rx Instructions .ROUTE .COMPLEX RF: 0 Discharge Orders: Discharge ED (Routine); Ordered 01/25/21 Ordered By: Jr Morales Referrals: Jenn Garcia MD [Physician] - 1-3 days (type 1 dm) Diaz,ELIZABETH Ennis [Primary Care Provider] - Discharge Diet: Diabetic Discharge Activity: Resume usual activity Patient Instructions: Opioid Safety Activity Restrictions/Additional Instructions: -Please continue to use insulin as prescribed -Please record blood sugars 3 times daily, bring to primary care physician's office -If blood sugar greater than 500, call primary care or go to the emergency room -If blood sugar less than 60, drink or juice or eat hard candy go to the emergency room -Referral has been made to follow-up with endocrinology Coding Level of Care Code ED [employer] In[employer] for [employer]
[2021-01-24 10:03] LABS: Blood Gas Operator Identificat CAK; Blood Gas Sample Type Venous
[2021-01-24 10:05] LABS: pH VBG 7.17 (7.32-7.42)
[2021-01-24 10:06] LABS: Base Excess VBG -13.7 mmol/L (-3.0-3.0); HCO3 VBG 14.1 mmol/L (24-28); PO2 VBG 42.6 mmHg (25-40); Venous Blood Gas Hematocrit 51.2 % (42-52)
[2021-01-24 10:13] LABS: Basophils # 0.1 10^3/uL (0.0-0.1); Basophils % 0.8 %; Eosinophils % 0.2 %; Hematocrit 48.5 % (42.0-52.0); Hemoglobin 16.4 g/dL (11.7-16.6); Lymphocytes # 2.9 10^3/uL (1.5-6.5); Lymphocytes % 17.2 %; Mean Corpuscular HGB Conc 33.8 g/dL (30.0-36.0); Mean Corpuscular Hemoglobin 29.3 pg (28.0-34.0); Mean Corpuscular Volume 86.6 fl (80-94); Mean Platelet Volume 9.5 fL (7.4-10.4); Monocytes # 0.4 10^3/uL (0.2-0.9); Monocytes % 2.5 %; Neutrophils # 13.11 10^3/uL (1.8-8.0); Neutrophils % 76.9 %; Nucleated Red Blood Cells % 0 %; Platelet Count 353 10^3/cmm (130-400); Red Cell Distribution Width 11.5 % (12.1-15.1); White Blood Count 17.1 10^3/uL (4.5-13.0)
[2021-01-24] MEDS: ondansetron 2 mg/ML SDV 2 mL 4 MG IVP ×2 (10:14→12:19)
[2021-01-24] MEDS: morphine 4 mg/mL SDV 1 mL IVP (10:14)
[2021-01-24] MEDS: sodium chloride 0.9% 1,000 ML 999 ML IV ×3 (10:15→19:00)
[2021-01-24 10:29] LABS: Lactate (Lactic Acid level) 3.2 mmol/L (0.5-2.2)
[2021-01-24 10:31] LABS: Glucose Point of Care > 600 mg/dL (70-110)
[2021-01-24 10:48] LABS: Alanine Aminotransferase 13 U/L (0-41); Albumin Level 4.1 g/dL (3.5-5.2); Alkaline Phosphatase 149 IU/L (40-130); Anion Gap 33.8 (5-19); Aspartate Amino Transferase 11 U/L (0-40); Blood Urea Nitrogen 22 mg/dL (6-20); Calcium 9.3 mg/dL (8.5-10.5); Carbon Dioxide 13 mmol/L (22-29); Chloride 89 mmol/L (98-107); Glomerular Filtration Rate 95.3 mL/min (90-130); Lipase 55 U/L (13-60); Osmolality Calculated 302 mOsm/kg (285-295); Potassium 4.8 mmol/L (3.5-5.1); Sodium 131 mmol/L (136-145); Total Bilirubin 0.8 mg/dL (0.15-1.2); Total Protein 7.1 g/dL (6.6-8.7)
[2021-01-24 10:57] LABS: Glucose 583 mg/dL (65-115)
--- NOTE | 2021-01-24 10:57 | PC.PHAR ---
PT STATES HE TAKES CARE OF HIS OWN MEDICATIONS-PT STATES HE ONLY USES 2 INSULINS AND NO OTHER MEDICATIONS
[2021-01-24 10:58] LABS: Ketone (Acetest) Serum Positive (Negative)
[2021-01-24 11:01] LABS: Glucose Point of Care 565 mg/dL (70-110)
[2021-01-24 11:28] LABS: Phosphorus 4.8 mg/dL (2.5-4.5)
[2021-01-24] MEDS: insulin regular-human 250 UNIT in sodium chloride 0.9% 250 ML 7.79 UNIT IV (12:22)
[2021-01-24 13:16] LABS: Glucose Point of Care 532 mg/dL (70-110)
--- NOTE | 2021-01-24 13:30 | XR_ITS ---
WS: [id number] Portable AP upright chest, 01/24/2021 Clinical Data: dka, r/o pna Comparison: Portable chest, 08/03/2019. Findings: No nodules, masses or effusions are seen. The heart is normal. The pulmonary vascularity is not increased. No pneumonia or pneumothorax is seen. XR/XR chest 1V portable [id number] Impression: Negative chest.
--- NOTE | 2021-01-24 13:33 | P.HP_ITS ---
Providers/Chief Complaint Primary Care Provider: Loli Diaz APN Chief Complaint: TYPE 1 DIABETIC: N/V/D, HIGH BLOOD SUGAR History of Present Illness Max Duggan is a 20 year old male with type 1 diabetes mellitus, who presents to [facility] due to feeling unwell, nausea, vomiting, dry heaving. Patient tells me that he has been doing well with his type 1 diabetes, he monitor his blood sugars closely, he is stable on his insulin regimen, he does not remember the last time he checked with his A1c, does not remember the last time he is followed up with his primary care provider, but to his knowledge has been doing well, his last hospital mission for DKA was roughly a year ago. 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 He tells me he woke up this morning just was not feeling well, started having nausea, vomiting eventually leading to dry heaving. In the emergency room patient was found to have positive ketones, anion gap of 33, blood sugar 583, potassium 4.8, lactate 3.2 pH on VBG 7.17. Received 2 L bolus, blood pressure still a bit soft, working on a second fluid bolus, started on insulin drip, currently he is alert oriented x3, answering all questions appropriate, has no particular complaints, just when he can eat, he is awaiting a bed in ICU Review of Systems Const: Denies: fever(s), chills, fatigue or malaise Eyes: Denies: change in vision or blurry vision ENMT: Denies: nasal congestion Card: Denies: chest pain or palpitations Resp: Denies: dyspnea, productive cough, non-productive cough or wheezing GI: Reports: nausea and vomiting; Denies: abdominal pain, hematemesis, diarrhea, constipation, hematochezia or melena : Denies: flank pain, difficulty urinating, dysuria or urinary frequency Musc: Denies: neck pain or back pain Skin/Breast: Denies: rash Neuro: Denies: headache(s), dizziness or vertigo Psych: Denies: anxiety or depression Endo: Denies: polyuria or polydipsia Medications/Allergies Home Medications Medication Instructions Recorded Confirmed Last Taken Type insulin aspart U-100 [Novolog See Rx Instructions .ROUTE .COMPLEX 06/17/19 01/24/21 01/23/21 18:00 History Flexpen U-100 Insulin] 12 UNITS insulin glargine [Basaglar KwikPen 60 unit SUBCUT BEDTIME 03/05/20 01/24/21 01/23/21 History U-100 Insulin] Allergies Allergy/AdvReac Type Severity Reaction Status Date / Time No Known Allergies Allergy Verified 01/24/21 10:57 PFSH Acute PFSH: Medical History (Updated 01/24/21 @ 13:38 by Jr Morales MD) Diabetes Family History (Updated 07/09/19 @ 14:58 by Jr Morales MD) Other CAD (coronary artery disease) Social History (Updated 07/09/19 @ 14:58 by Jr Morales MD) Smoking and tobacco status: never smoked Alcohol intake: never Vitals/I&O/Wt Last Vital Signs Temp 97.3 F L 01/24/21 09:36 Pulse 106 H 01/24/21 13:08 Resp 18 01/24/21 13:08 BP 99/46 01/24/21 13:08 Pulse Ox 97 01/24/21 13:08 01/23/21 01/24/21 01/24/21 22:59 06:59 14:59 Intake Total 1000 / 1000 Balance 1000 / 1000 Weight last 48 hrs Weight 77.111 kg Physical Exam Const: COMMON NORMALS: no acute distress and patient oriented x3 HENMT: COMMON NORMALS: normocephalic HEAD & SCALP: normocephalic Eye: COMMON NORMALS: Equal, round and reactive pupils present GENERAL EYE: appearance normal, both eyes and all related structures PUPIL: Yes Equal, round and reactive pupils present Neck/C-Spine: COMMON NORMALS: full ROM, no lymphadenopathy and no JVD THYROID: Thyroid normal Lymph: LYMPHATIC: no lymphadenopathy noted Resp: COMMON NORMALS: normal respiratory effort, No retractions, No use of accessory muscles and clear to auscultation bilaterally AUSCULTATION: clear to auscultation bilaterally Cardio: COMMON NORMALS: regular rate, regular rhythm, S1 normal heart sound present, S2 normal heart sound present, No gallops present (Cardio), No clicks present (Cardio) and No murmurs present (Cardio) RATE: regular rate RHYTHM: regular rhythm HEART SOUNDS: S1 normal heart sound present and S2 normal heart sound present GI: COMMON NORMALS: Normal to inspection, nondistended, normoactive bowel sounds present, Soft to palpation, non-tender and No hepatosplenomegaly present PALPATION: Yes Soft to palpation and Yes No hepatosplenomegaly present Extremity: COMMON NORMALS: normal to inspection, full ROM and no pedal edema Neuro: COMMON NORMALS: patient oriented x3, CN's II-XII intact bilaterally, moves all extremities and no focal motor deficits Psych: COMMON NORMALS: mental status grossly normal, Normal thought process present and cooperative THOUGHT PROCESS: Normal thought process present Data : 01/24/21 10:00 01/24/21 10:00 A&P Assessment and plan (1) Type 1 diabetes mellitus: Status: Acute Qualifiers: Diabetes mellitus complication status: with hyperglycemia Qualified Code(s): E10.65 - Type 1 diabetes mellitus with hyperglycemia (2) DKA (diabetic ketoacidoses): -Admit to ICU -DKA protocol -Monitor blood sugars hourly -BMP, mag, Phos every 4 hours -Continue insulin drip -Can transition to IV and long-acting once blood sugar is less than 200, anion gap less than 15 -Currently normal saline with 20 KCl, continue for now, changed to D5 when blood sugar less than 200 -Monitor serum potassium, if less than 3.5, hold insulin drip, place potassium -Telemetry monitoring -Leukocytosis 17.1, likely reactive, awaiting UA, chest x-ray -N.p.o. 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
[2021-01-24 13:34] LABS: Add Urine Microscopic? NO; Charge for UA Resulting for Rev
[2021-01-24 13:36] LABS: Bilirubin Urine Neg (Negative); Blood Urine Neg (Negative); Glucose Urine UA 4+ (Normal); Ketones Urine 3+ (Negative); Leukocyte Esterase Urine Negative (Negative); Nitrate Urine Negative (Negative); Protein Urine Neg (Negative); Specific Gravity, Urine 1.015 (1.005-1.030); Urine Appearance Clear (CLEAR); Urine Color Straw (Yellow); Urobilinogen Urine Norm (Negative); pH Urine 5 (5-7)
[2021-01-24] MEDS: sodium chlor 0.9% + KCl 20 mEq 20 MEQ/1,000 ML BAG 100 MEQ IV (14:09)
[2021-01-24 14:21] LABS: Glucose Point of Care 473 mg/dL (70-110)
[2021-01-24 14:49] LABS: SARS Covid-2 Antigen Negative (Negative)
[2021-01-24 15:41] LABS: Glucose Point of Care 361 mg/dL (70-110)
[2021-01-24 16:05] LABS: Lactate (Lactic Acid level) 1.4 mmol/L (0.5-2.2)
[2021-01-24 16:08] LABS: Glucose Point of Care 284 mg/dL (70-110)
[2021-01-24 16:34] LABS: Blood Urea Nitrogen 23 mg/dL (6-20); Calcium 8.3 mg/dL (8.5-10.5); Carbon Dioxide 13 mmol/L (22-29); Chloride 100 mmol/L (98-107); Glomerular Filtration Rate 95.3 mL/min (90-130); Glucose 350 mg/dL (65-115); Magnesium 2.1 mg/dL (1.7-2.3); Osmolality Calculated 302 mOsm/kg (285-295); Phosphorus 3.8 mg/dL (2.5-4.5); Sodium 137 mmol/L (136-145); Thyroid Stimulating Hormone 0.59 uIU/mL (0.27-4.20)
[2021-01-24 16:44] LABS: Estmated Average Glucose 263; Hemoglobin A1C 10.8 % (4.0-6.0)
[2021-01-24 17:06] LABS: Glucose Point of Care 276 mg/dL (70-110)
[2021-01-24 18:13] LABS: Glucose Point of Care 207 mg/dL (70-110)
[2021-01-24 19:00] LABS: Glucose Point of Care 187 mg/dL (70-110)
[2021-01-24] MEDS: famotidine 20 mg Tablet PO (19:14)
[2021-01-24] MEDS: dextrose 5%-ns + KCl 40 40 MEQ/1,000 ML BAG 75 MEQ IV (20:33)
[2021-01-24 20:56] LABS: Blood Urea Nitrogen 19 mg/dL (6-20); Calcium 8.2 mg/dL (8.5-10.5); Carbon Dioxide 21 mmol/L (22-29); Chloride 105 mmol/L (98-107); Glomerular Filtration Rate 123.2 mL/min (90-130); Glucose 159 mg/dL (65-115); Magnesium 1.9 mg/dL (1.7-2.3); Osmolality Calculated 292 mOsm/kg (285-295); Phosphorus 2.7 mg/dL (2.5-4.5); Sodium 138 mmol/L (136-145)
--- NOTE | 2021-01-24 21:31 | PC.NURSE ---
pt provided with crackers and water to see how he tolerates PO food/drink.
--- NOTE | 2021-01-24 21:41 | PC.NURSE ---
2135 patient given food challenge per Dr. Oh.
--- NOTE | 2021-01-24 22:36 | PC.NURSE ---
advised provided that pt held down crackers without incident and Dr. Andrews wanted pt to havve something more substantial and see how he does with that. Provided pt with sandwich and diet cola. will evaluate n/v after intake.
--- NOTE | 2021-01-24 22:41 | PM.EVENT ---
Event Note Event Note: Anion gap has closed, blood sugars are improved, CO2 at 21, lytes okay. Given food and drink without any nausea or vomiting. Will give half usual dose of long acting insulin now and start short acting insulin, stop insulin drip about 30 minutes after lantus given. Start consistent carb diet. Will Change to med surg bed for continued boarding iin ED if does okay with changes. Event Notes Attestations Time Spent in Patient Care: 16 - 35 minutes 20 minutes
--- NOTE | 2021-01-24 22:47 | PC.NURSE ---
dr. griffin advised to give lantus as ordered, then in about 30 mins after that turn off insulin drip. 1 hour and 2 hours after lantus dose perform accucheck and then go to [facility] accuchecks.
[2021-01-24 23:30] LABS: Anion Gap 10.8 (5-19); Blood Urea Nitrogen 17 mg/dL (6-20); Calcium 7.7 mg/dL (8.5-10.5); Carbon Dioxide 21 mmol/L (22-29); Chloride 109 mmol/L (98-107); Glomerular Filtration Rate 143.8 mL/min (90-130); Glucose 88 mg/dL (65-115); Magnesium 1.7 mg/dL (1.7-2.3); Osmolality Calculated 285 mOsm/kg (285-295); Phosphorus 2.6 mg/dL (2.5-4.5); Potassium 3.8 mmol/L (3.5-5.1); Sodium 137 mmol/L (136-145)
[2021-01-24] MEDS: insulin glargine 100 units/1 mL 30 UNIT SUBCUT (23:40)
[2021-01-24 23:50] LABS: Glucose Point of Care 110 mg/dL (70-110)
[2021-01-25 01:30] LABS: Glucose Point of Care 103 mg/dL (70-110)
[2021-01-25 03:18] LABS: Anion Gap 13.2 (5-19); Blood Urea Nitrogen 16 mg/dL (6-20); Carbon Dioxide 20 mmol/L (22-29); Chloride 108 mmol/L (98-107); Glomerular Filtration Rate 143.8 mL/min (90-130); Glucose 130 mg/dL (65-115); Magnesium 1.7 mg/dL (1.7-2.3); Osmolality Calculated 287 mOsm/kg (285-295); Phosphorus 3.6 mg/dL (2.5-4.5); Potassium 4.2 mmol/L (3.5-5.1); Sodium 137 mmol/L (136-145)
[2021-01-25 05:02] VITALS: BP 93/64; PULSE 84; RESP 16; O2SAT 96
[2021-01-25 07:06] LABS: Basophils # 0.1 10^3/uL (0.0-0.1); Basophils % 0.4 %; Eosinophils # 0.1 10^3/uL (0.0-0.8); Eosinophils % 0.4 %; Hematocrit 37.7 % (42.0-52.0); Hemoglobin 13.5 g/dL (11.7-16.6); Lymphocytes # 4.4 10^3/uL (1.5-6.5); Lymphocytes % 32.2 %; Mean Corpuscular HGB Conc 35.8 g/dL (30.0-36.0); Mean Corpuscular Hemoglobin 29.9 pg (28.0-34.0); Mean Corpuscular Volume 83.4 fl (80-94); Mean Platelet Volume 9.7 fL (7.4-10.4); Monocytes # 0.8 10^3/uL (0.2-0.9); Monocytes % 5.7 %; Neutrophils # 8.26 10^3/uL (1.8-8.0); Neutrophils % 60.8 %; Nucleated Red Blood Cells % 0 %; Platelet Count 312 10^3/cmm (130-400); Red Blood Count 4.52 10^6/uL (4.1-5.3); Red Cell Distribution Width 11.6 % (12.1-15.1); White Blood Count 13.6 10^3/uL (4.5-13.0)
[2021-01-25 08:29] LABS: Glucose Point of Care 134 mg/dL (70-110)
[2021-01-25 10:28] LABS: Glucose Point of Care 265 mg/dL (70-110)
[2021-01-25 12:11] LABS: Glucose Point of Care 246 mg/dL (70-110)
--- NOTE | 2021-01-25 12:34 | PM.DCS ---
Discharge Providers Date of Discharge: January 25, 2021 Primary Care Provider: Loli Diaz APN Diagnoses at Discharge Discharge Diagnosis (1) Type 1 diabetes mellitus: Status: Acute Qualifiers: Diabetes mellitus complication status: with hyperglycemia Qualified Code(s): E10.65 - Type 1 diabetes mellitus with hyperglycemia (2) DKA (diabetic ketoacidoses): Status: Acute Reason for Visit Reason for Visit: TYPE 1 DIABETIC: N/V/D, HIGH BLOOD SUGAR Hospital Course Hospital Course This is a 20-year-old male with a past medical history of type 1 diabetes mellitus, recent hospitalization a year ago for DKA, who presents to [facility] for nausea, vomiting, feeling unwell Patient was admitted to [facility] for diabetic ketoacidosis, he was a ER hold, managed in the emergency room, on insulin drip, IV fluids, his anion gap closed, potassium was within normal limits, blood sugars within normal limits. Was discharged home on his home insulin, with a close follow-up with his primary care provider as outpatient. Patient had leukocytosis during his hospitalization, remained afebrile, UA no evidence of UTI, chest x-ray no evidence of pneumonia, no abdominal complaints, no pain complaints, no fever complaints, rapid Covid negative. Patient was discharged with instructions to drink plenty of electrolyte balance fluids, monitor for fevers, if so come back to emergency room. Physical Exam Const: COMMON NORMALS: no acute distress and patient oriented x3 Resp: COMMON NORMALS: normal respiratory effort, No retractions, No use of accessory muscles and clear to auscultation bilaterally AUSCULTATION: clear to auscultation bilaterally Cardio: COMMON NORMALS: regular rate, regular rhythm, S1 normal heart sound present and S2 normal heart sound present RATE: regular rate RHYTHM: regular rhythm HEART SOUNDS: S1 normal heart sound present and S2 normal heart sound present GI: COMMON NORMALS: Normal to inspection, nondistended, normoactive bowel sounds present, Soft to palpation and non-tender PALPATION: Yes Soft to palpation Extremity: COMMON NORMALS: no pedal edema Neuro: COMMON NORMALS: patient oriented x3 Discharge Data Data Completed and Pending: Completed Studies During Hospitalization Category Date Time Status XR chest 1V sheri ble [id number] Stat Exams 01/24/21 13:30 Completed Pending at discharge Category Date Time Status Basic Metabolic P nia Q4H Lab 01/25/21 06:00 Ordered Basic Metabolic P nia Q4H Lab 01/25/21 10:00 Ordered Basic Metabolic P nia Q4H Lab 01/25/21 14:00 Ordered Basic Metabolic P nia Q4H Lab 01/25/21 18:00 Ordered Magnesium Q4H Lab 01/25/21 06:00 Ordered Magnesium Q4H Lab 01/25/21 10:00 Ordered Magnesium Q4H Lab 01/25/21 14:00 Ordered Magnesium Q4H Lab 01/25/21 18:00 Ordered Phosphorus Q4H Lab 01/25/21 06:00 Ordered Phosphorus Q4H Lab 01/25/21 10:00 Ordered Phosphorus Q4H Lab 01/25/21 14:00 Ordered Labs from last 24 hours 01/25/21 01/25/21 01/25/21 12:04 10:24 08:23 WBC RBC Hgb Hct MCV MCH MCHC RDW Plt Count MPV Neut % (Auto) Lymph % (Auto) [place] % (Auto) Eos % (Auto) Baso % (Auto) Neut # (Auto) Lymph # (Auto) [place] # (Auto) Eos # (Auto) Baso # (Auto) Nucleated RBC % (a uto) Nucleated RBCs # Sodium Potassium Chloride Carbon Dioxide Anion Gap BUN Creatinine GFR Calculation Glucose POC Glucose 246 H 265 H 134 H Estimat Average Gl ucose Hemoglobin A1c Calculated Osmolal ity Lactate Calcium Phosphorus Magnesium TSH Urine Color Urine Appearance Urine pH Ur Specific Gravit y Urine Protein Urine Glucose (UA) Urine Ketones Urine Blood Urine Nitrate Urine Bilirubin Urine Urobilinogen Ur Leukocyte Cara ase SARS-CoV-2 Ag (Rap id) 01/25/21 01/25/21 01/25/21 05:46 02:40 01:27 WBC 13.6 H RBC 4.52 Hgb 13.5 Hct 37.7 L MCV 83.4 MCH 29.9 MCHC 35.8 D RDW 11.6 L Plt Count 312 MPV 9.7 Neut % (Auto) 60.8 Lymph % (Auto) 32.2 [place] % (Auto) 5.7 Eos % (Auto) 0.4 Baso % (Auto) 0.4 Neut # (Auto) 8.26 H Lymph # (Auto) 4.4 [place] # (Auto) 0.8 Eos # (Auto) 0.1 Baso # (Auto) 0.1 Nucleated RBC % (a uto) 0 Nucleated RBCs # 0.0 Sodium 137 Potassium 4.2 Chloride 108 H Carbon Dioxide 20 L Anion Gap 13.2 BUN 16 Creatinine 0.7 GFR Calculation 143.8 H Glucose 130 H POC Glucose 103 Estimat Average Gl ucose Hemoglobin A1c Calculated Osmolal ity 287 Lactate Calcium 8.0 L Phosphorus 3.6 Magnesium 1.7 TSH Urine Color Urine Appearance Urine pH Ur Specific Gravit y Urine Protein Urine Glucose (UA) Urine Ketones Urine Blood Urine Nitrate Urine Bilirubin Urine Urobilinogen Ur Leukocyte Cara ase SARS-CoV-2 Ag (Rap id) 01/24/21 01/24/21 01/24/21 23:46 22:37 20:10 WBC RBC Hgb Hct MCV MCH MCHC RDW Plt Count MPV Neut % (Auto) Lymph % (Auto) [place] % (Auto) Eos % (Auto) Baso % (Auto) Neut # (Auto) Lymph # (Auto) [place] # (Auto) Eos # (Auto) Baso # (Auto) Nucleated RBC % (a uto) Nucleated RBCs # Sodium 137 138 Potassium 3.8 4.0 Chloride 109 H 105 Carbon Dioxide 21 L 21 L Anion Gap 10.8 16.0 BUN 17 19 Creatinine 0.7 0.8 GFR Calculation 143.8 H 123.2 Glucose 88 159 H POC Glucose 110 Estimat Average Gl ucose Hemoglobin A1c Calculated Osmolal ity 285 292 Lactate Calcium 7.7 L 8.2 L Phosphorus 2.6 2.7 Magnesium 1.7 1.9 TSH Urine Color Urine Appearance Urine pH Ur Specific Gravit y Urine Protein Urine Glucose (UA) Urine Ketones Urine Blood Urine Nitrate Urine Bilirubin Urine Urobilinogen Ur Leukocyte Cara ase SARS-CoV-2 Ag (Rap id) 01/24/21 01/24/21 01/24/21 18:54 18:36 18:10 WBC RBC Hgb Hct MCV MCH MCHC RDW Plt Count MPV Neut % (Auto) Lymph % (Auto) [place] % (Auto) Eos % (Auto) Baso % (Auto) Neut # (Auto) Lymph # (Auto) [place] # (Auto) Eos # (Auto) Baso # (Auto) Nucleated RBC % (a uto) Nucleated RBCs # Sodium Cancelled Potassium Cancelled Chloride Cancelled Carbon Dioxide Cancelled Anion Gap Cancelled BUN Cancelled Creatinine Cancelled GFR Calculation Cancelled Glucose Cancelled POC Glucose 187 H 207 H Estimat Average Gl ucose Hemoglobin A1c Calculated Osmolal ity Cancelled Lactate Calcium Cancelled Phosphorus Cancelled Magnesium Cancelled TSH Urine Color Urine Appearance Urine pH Ur Specific Gravit y Urine Protein Urine Glucose (UA) Urine Ketones Urine Blood Urine Nitrate Urine Bilirubin Urine Urobilinogen Ur Leukocyte Cara ase SARS-CoV-2 Ag (Rap id) 01/24/21 01/24/21 01/24/21 17:02 16:05 15:20 WBC RBC Hgb Hct MCV MCH MCHC RDW Plt Count MPV Neut % (Auto) Lymph % (Auto) [place] % (Auto) Eos % (Auto) Baso % (Auto) Neut # (Auto) Lymph # (Auto) [place] # (Auto) Eos # (Auto) Baso # (Auto) Nucleated RBC % (a uto) Nucleated RBCs # Sodium Potassium Chloride Carbon Dioxide Anion Gap BUN Creatinine GFR Calculation Glucose POC Glucose 276 H 284 H 361 H Estimat Average Gl ucose Hemoglobin A1c Calculated Osmolal ity Lactate Calcium Phosphorus Magnesium TSH Urine Color Urine Appearance Urine pH Ur Specific Gravit y Urine Protein Urine Glucose (UA) Urine Ketones Urine Blood Urine Nitrate Urine Bilirubin Urine Urobilinogen Ur Leukocyte Cara ase -CoV-2 Ag (Rap id) 01/24/21 01/24/21 01/24/21 15:10 15:10 15:10 WBC RBC Hgb Hct MCV MCH MCHC RDW Plt Count MPV Neut % (Auto) Lymph % (Auto) [place] % (Auto) Eos % (Auto) Baso % (Auto) Neut # (Auto) Lymph # (Auto) [place] # (Auto) Eos # (Auto) Baso # (Auto) Nucleated RBC % (a uto) Nucleated RBCs # Sodium 137 Potassium 4.0 Chloride 100 Carbon Dioxide 13 L Anion Gap 28.0 H BUN 23 H Creatinine 1.0 GFR Calculation 95.3 Glucose 350 H POC Glucose Estimat Average Gl ucose 263 Hemoglobin A1c 10.8 H Calculated Osmolal ity 302 H Lactate 1.4 Calcium 8.3 L Phosphorus 3.8 Magnesium 2.1 TSH 0.59 Urine Color Urine Appearance Urine pH Ur Specific Gravit y Urine Protein Urine Glucose (UA) Urine Ketones Urine Blood Urine Nitrate Urine Bilirubin Urine Urobilinogen Ur Leukocyte Cara ase SARS-CoV-2 Ag (Rap id) 01/24/21 01/24/2121 14:20 14:08 13:11 WBC RBC Hgb Hct MCV MCH MCHC RDW Plt Count MPV Neut % (Auto) Lymph % (Auto) [place] % (Auto) Eos % (Auto) Baso % (Auto) Neut # (Auto) Lymph # (Auto) [place] # (Auto) Eos # (Auto) Baso # (Auto) Nucleated RBC % (a uto) Nucleated RBCs # Sodium Potassium Chloride Carbon Dioxide Anion Gap BUN Creatinine GFR Calculation Glucose POC Glucose 473 H Estimat Average Gl ucose Hemoglobin A1c Calculated Osmolal ity Lactate Calcium Phosphorus Magnesium TSH Urine Color Straw Urine Appearance Clear Urine pH 5 Ur Specific Gravit y 1.015 Urine Protein Neg Urine Glucose (UA) 4+ H Urine Ketones 3+ H Urine Blood Neg Urine Nitrate Negative Urine Bilirubin Neg Urine Urobilinogen Norm Ur Leukocyte Cara ase Negative SARS-CoV-2 Ag (Rap id) Negative 01/24/21 13:06 WBC RBC Hgb Hct MCV MCH MCHC RDW Plt Count MPV Neut % (Auto) Lymph % (Auto) [place] % (Auto) Eos % (Auto) Baso % (Auto) Neut # (Auto) Lymph # (Auto) [place] # (Auto) Eos # (Auto) Baso # (Auto) Nucleated RBC % (a uto) Nucleated RBCs # Sodium Potassium Chloride Carbon Dioxide Anion Gap BUN Creatinine GFR Calculation Glucose POC Glucose 532 H* Estimat Average Gl ucose Hemoglobin A1c Calculated Osmolal ity Lactate Calcium Phosphorus Magnesium TSH Urine Color Urine Appearance Urine pH Ur Specific Gravit y Urine Protein Urine Glucose (UA) Urine Ketones Urine Blood Urine Nitrate Urine Bilirubin Urine Urobilinogen Ur Leukocyte Cara ase SARS-CoV-2 Ag (Rap id) Vitals: Last Vital Signs Temp 97.3 F L 01/24/21 09:36 Pulse 84 01/25/21 05:02 Resp 16 01/25/21 05:02 BP 93/64 01/25/21 05:02 Pulse Ox 96 01/25/21 05:02 Discharge Plan Discharge Patient Disposition: Home Condition: Stable Prescriptions: No Action Basaglar KwikPen U-100 Insulin 100 unit/mL (3 mL) insulin pen 60 unit SUBCUT BEDTIME RF: 0 insulin aspart U-100 [Novolog Flexpen U-100 Insulin] 100 unit/mL (3 mL) Insulin Pen See Rx Instructions .ROUTE .COMPLEX RF: 0 Discharge Orders: Discharge ED (Routine); Ordered 01/25/21 Ordered By: Jr Morales Referrals: Jenn Garcia MD [Physician] - 1-3 days (type 1 dm) Diaz,ELIZABETH Ennis [Primary Care Provider] - Discharge Diet: Diabetic Discharge Activity: Resume usual activity Patient Instructions: Opioid Safety Activity Restrictions/Additional Instructions: -Please continue to use insulin as prescribed -Please record blood sugars 3 times daily, bring to primary care physician's office -If blood sugar greater than 500, call primary care or go to the emergency room -If blood sugar less than 60, drink or juice or eat hard candy go to the emergency room -Referral has been made to follow-up with endocrinology Discharge Attestations Time Spent in Discharge Care*: less than 30 min Quality Metrics Clinical Quality Measures During this hospital stay, did patient experience: None Coding Level of Care Code Acute [facility] [place] note Diagnoses Type 1 diabetes mellitus E10.65 Diabetes mellitus complication status: with hyperglycemia DKA (diabetic ketoacidoses) E11.10
[2021-01-25 18:54] LABS: Glucose Point of Care 122 mg/dL (70-110)
== END 2021-01-25 12:45 | disposition home or self-care (01) ==
PROVIDERS: Family Medicine; Hospitalist; Emergency Provider Emergency Medicine; PCP Nurse Practitioner Family
DX: R11.2 Nausea with vomiting, unspecified (principal); R19.7 Diarrhea, unspecified; Z79.4 Long term (current) use of insulin; E10.9 Type 1 diabetes mellitus without complications
CPT/HCPCS: 36415; 36416; 71045; 80048; 80053; 81003; 82009; 82803; 82962; 83036; 83605; 83690; 83735; 84100; 84443; 85025; 87426; 96365; 96366; 96372; 96375; 96376; 99285; J1815 ×2; J2270; J2405; J7030; J7050

== ENCOUNTER 2021-02-10 13:01 | Inpatient (IN) | payer OTHER, SELFPAY ==
[2021-02-10] VITALS (48 sets, daily range): BP systolic 84–127; BP diastolic 43–65; PULSE 84–107; RESP 0–25; TEMP 37–37.2; O2SAT 96–100; BMI 17.1; BMI 20.2
--- NOTE | 2021-02-10 15:30 | W.ED.GENADLT ---
HPI - General Adult General: Chief complaint: General Medical Stated complaint: Type 1 Diabetic Time Seen by Provider: 02/10/21 15:14 History of Present Illness: HPI narrative: 20-year-old male presents emergency room claiming of elevated blood sugar. He has been nauseous and had several episodes of bilious vomiting. This morning he checked it and it was slightly elevated when he got here it was 465. He had a cough with associated with episodes of vomiting but otherwise none he has had some abdominal abdominal discomfort more supraumbilical up in the left upper quadrant. He denies drinking any alcohol excessively. He does have some reflux issues denies any hematochezia or melena. Onset (ago): hour(s) Location: abdomen Severity: mild Relieving factors: none Exacerbating factors: eating Associated symptoms: Reports cough, decreased appetite, fevers/chills, malaise, nausea, vomiting and weakness; Deny chest pain, confusion, diaphoresis, dyspnea, headache(s), rash, palpitations, seizures, short of breath or syncope Treatments prior to arrival: none Review of Systems Const: Reports: malaise; Denies: diaphoresis ENMT: Denies: throat pain, ear or mastoid pain, nasal discharge or nasal congestion Card: Denies: chest pain, palpitations or syncope Resp: Denies: dyspnea GI: Reports: nausea and vomiting : Denies: flank pain, dysuria, urinary frequency or urinary urgency Skin/Breast: Denies: rash Neuro: Denies: headache(s) or confusion PFS ED PFSH: Medical History (Updated 02/10/21 @ 17:01 by Salvador Handley DO) Diabetes Surgical History (Updated 02/10/21 @ 16:36 by Donavon Belcher MD) History of dental surgery Family History Other CAD (coronary artery disease) Social History (Updated 02/10/21 @ 16:36 by Donavon Belcher MD) Smoking and tobacco status: current every day smoker e-cigarettes Alcohol intake: never Substance/Drug Use: never Housing: House Physical Exam Const: COMMON NORMALS: no acute distress GENERAL APPEARANCE: cooperative and comfortable ORIENTATION/CONSCIOUSNESS: Yes awake, Yes oriented to person, Yes oriented to place and Yes oriented to time HENMT: COMMON NORMALS: normocephalic, atraumatic and hearing grossly normal bilaterally HEAD & SCALP: normocephalic and atraumatic Neck/C-Spine: COMMON NORMALS: no JVD Lymph: LYMPHATIC: no lymphadenopathy noted and no lymphedema noted Resp: COMMON NORMALS: normal respiratory effort, No retractions, No use of accessory muscles and clear to auscultation bilaterally AUSCULTATION: clear to auscultation bilaterally Cardio: COMMON NORMALS: no JVD, regular rate, regular rhythm and No murmurs present (Cardio) RATE: regular rate RHYTHM: regular rhythm GI: COMMON NORMALS: No hepatosplenomegaly present AUSCULTATION: Yes normoactive bowel sounds PALPATION: Yes Tenderness to palpation present (GI) (Mild) Details: LUQ, No Guarding due to palpation present (GI) and Yes No hepatosplenomegaly present Extremity: COMMON NORMALS: normal to inspection, capillary refill normal, no clubbing, cyanosis or edema, no calf tenderness and no pedal edema Neuro: SENSORIUM/ORIENTATION: Yes oriented to person, Yes oriented to place and Yes oriented to time Skin: COMMON NORMALS: no rashes or lesions noted GENERAL SKIN EXAM: no rashes or lesions noted Course Vital Signs: Vital signs: Vital Signs Temperature 98.9 F 02/10/21 13:28 Pulse Rate 87 02/10/21 16:18 Respiratory Rate 14 02/10/21 16:18 Blood Pressure 113/57 02/10/21 16:18 Pulse Oximetry 100 02/10/21 16:18 MDM - General Adult MDM Narrative: Medical decision making narrative: Reviewed labs and imaging on the chart discussed with the hospitalist will admit for nonketotic hyperosmolar state. Started on insulin drip and given fluids. Discussed with the patient as an outpatient and like to look at getting a insulin pump discussed with the hospitalist. They will address at discharge. Lab Data: Labs: Lab Results 02/10/21 02/10/21 02/10/21 Range/Units 15:30 15:30 15:30 WBC 20.0 H (4.5-13.0) 10^3/ uL RBC 5.20 (4.1-5.3) 10^6/u L Hgb 15.4 (11.7-16.6) g/dL Hct 46.1 (42.0-52.0) % MCV 88.7 (80-94) fl MCH 29.6 (28.0-34.0) pg MCHC 33.4 (30.0-36.0) g/dL RDW 11.4 L (12.1-15.1) % Plt Count 404 H (130-400) 10^3/c mm MPV 9.8 (7.4-10.4) fL Neut % (Auto) 80.1 % Lymph % (Auto) 13.1 % Spencer % (Auto) 3.3 % Eos % (Auto) 0.1 % Baso % (Auto) 0.9 % Neut # (Auto) 16.00 H (1.8-8.0) 10^3/u L Lymph # (Auto) 2.6 (1.5-6.5) 10^3/u L Spencer # (Auto) 0.7 (0.2-0.9) 10^3/u L Eos # (Auto) 0.0 (0.0-0.8) 10^3/u L Baso # (Auto) 0.2 H (0.0-0.1) 10^3/u L Nucleated RBC % (a uto) 0 % Nucleated RBCs # 0.0 /100WBC Specimen Type Sample Site ABG pH (7.35-7.45) ABG pCO2 (35-45) mmHg ABG pO2 (80.0-100.0) mmH g ABG HCO3 (22-26) mmol/L ABG O2 Saturation ABG Base Excess (-2.0-2.0) mmol/ L Tong Test A-a O2 Gradient Hematocrit (42-52) % Hgb O2 Saturation (95-100) % Carboxyhemoglobin (0.4-20.1) %THgb Methemoglobin (0.4-1.5) % Total Hemoglobin (14-18) g/dL Ionized Calcium (1.1-1.4) mmol/L O2 Delivery Device FiO2 % Joy Operator Helper ID Sodium 130 L (136-145) mmol/L Potassium 4.8 (3.5-5.1) mmol/L Chloride 88 L (98-107) mmol/L Carbon Dioxide 11 L (22-29) mmol/L Anion Gap 35.8 H (5-19) BUN 23 H (6-20) mg/dL Creatinine 0.9 (0.7-1.2) mg/dL GFR Calculation 107.6 (90-130) mL/min Glucose 469 H (65-115) mg/dL Calculated Osmolal ity 294 (285-295) mOsm/k g Calcium 9.2 (8.5-10.5) mg/dL Lipase (13-60) U/L Serum Ketones Negative (Negative) 02/10/21 02/10/21 Range/Units 15:30 15:35 WBC (4.5-13.0) 10^3/ uL RBC (4.1-5.3) 10^6/u L Hgb (11.7-16.6) g/dL Hct (42.0-52.0) % MCV (80-94) fl MCH (28.0-34.0) pg MCHC (30.0-36.0) g/dL RDW (12.1-15.1) % Plt Count (130-400) 10^3/c mm MPV (7.4-10.4) fL Neut % (Auto) % Lymph % (Auto) % Spencer % (Auto) % Eos % (Auto) % Baso % (Auto) % Neut # (Auto) (1.8-8.0) 10^3/u L Lymph # (Auto) (1.5-6.5) 10^3/u L Spencer # (Auto) (0.2-0.9) 10^3/u L Eos # (Auto) (0.0-0.8) 10^3/u L Baso # (Auto) (0.0-0.1) 10^3/u L Nucleated RBC % (a uto) % Nucleated RBCs # /100WBC Specimen Type Arterial Sample Site Radial, right ABG pH 7.18 L* (7.35-7.45) ABG pCO2 26.5 L (35-45) mmHg ABG pO2 115.0 H (80.0-100.0) mmH g ABG HCO3 9.8 L (22-26) mmol/L ABG O2 Saturation 97.8 ABG Base Excess -17.0 L (-2.0-2.0) mmol/ L Tong Test Pos A-a O2 Gradient Not Reportable Hematocrit 46.7 (42-52) % Hgb O2 Saturation 96.2 (95-100) % Carboxyhemoglobin 1.0 (0.4-20.1) %THgb Methemoglobin 0.6 (0.4-1.5) % Total Hemoglobin 15.2 (14-18) g/dL Ionized Calcium 1.2 (1.1-1.4) mmol/L O2 Delivery Device Room air FiO2 21.0 % Joy Operator Helper ID Cak Sodium 131.0 (136-145) mmol/L Potassium 4.6 (3.5-5.1) mmol/L Chloride (98-107) mmol/L Carbon Dioxide (22-29) mmol/L Anion Gap (5-19) BUN (6-20) mg/dL Creatinine (0.7-1.2) mg/dL GFR Calculation (90-130) mL/min Glucose 522.0 H (65-115) mg/dL Calculated Osmolal ity (285-295) mOsm/k g Calcium (8.5-10.5) mg/dL Lipase 76 H (13-60) U/L Serum Ketones (Negative) Discharge Plan Discharge Patient Disposition: Admitted As Inpatient Clinical Impression: Hyperglycemia due to type 1 diabetes mellitus, Hyperosmolar hyperglycemic state (HHS) Condition: Stable Prescriptions: No Action Basaglar KwikPen U-100 Insulin 100 unit/mL (3 mL) insulin pen 60 unit SUBCUT BEDTIME RF: 0 insulin aspart U-100 [Novolog Flexpen U-100 Insulin] 100 unit/mL (3 mL) Insulin Pen See Rx Instructions .ROUTE .COMPLEX RF: 0 ibuprofen 200 mg Tablet 400 mg PO Q4H PRN (Reason: Pain) RF: 0 Referrals: Diaz,ELIZABETH Ennis [Primary Care Provider] - Patient Instructions: Opioid Safety Coding Level of Care Code 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
[2021-02-10] MEDS: insulin regular-human 100 units/1 mL 10 UNIT IVP (15:39)
[2021-02-10] MEDS: sodium chloride 0.9% 1,000 ML 999 ML IV ×2 (15:39→16:41)
[2021-02-10 15:44] LABS: Basophils # 0.2 10^3/uL (0.0-0.1); Basophils % 0.9 %; Eosinophils % 0.1 %; Hematocrit 46.1 % (42.0-52.0); Hemoglobin 15.4 g/dL (11.7-16.6); Lymphocytes # 2.6 10^3/uL (1.5-6.5); Lymphocytes % 13.1 %; Mean Corpuscular HGB Conc 33.4 g/dL (30.0-36.0); Mean Corpuscular Hemoglobin 29.6 pg (28.0-34.0); Mean Corpuscular Volume 88.7 fl (80-94); Mean Platelet Volume 9.8 fL (7.4-10.4); Monocytes # 0.7 10^3/uL (0.2-0.9); Monocytes % 3.3 %; Neutrophils % 80.1 %; Nucleated Red Blood Cells % 0 %; Platelet Count 404 10^3/cmm (130-400); Red Cell Distribution Width 11.4 % (12.1-15.1)
[2021-02-10 15:46] LABS: ABG PCO2 26.5 mmHg (35-45); Arterial Blood Gas Hematocrit 46.7 % (42-52); Blood Gas Allen Test Pos; Blood Gas Operator Identificat CAK; Blood Gas Sample Site Radial, right; Blood Gas Sample Type Arterial; HCO3 ABG 9.8 mmol/L (22-26); HGB O2 Sat 96.2 % (95-100); Ionized Calcium Level - ABG 1.2 mmol/L (1.1-1.4); Methemoglobin 0.6 % (0.4-1.5); Oxygen Device ROOM AIR; Oxygen Saturation ABG 97.8; Potassium Level - ABG 4.6 mmol/L (3.5-5.0); Total Hemoglobin 15.2 g/dL (14-18)
[2021-02-10 15:47] LABS: ABG PH Result 7.18 (7.35-7.45)
--- NOTE | 2021-02-10 15:53 | XRR_ITS ---
PROCEDURE INFORMATION: Exam: XR Chest Exam date and time: 02/10/2021 3:53 PM Age: 20 years old Clinical indication: Other: Dka; Additional info: Dyspnea/cough TECHNIQUE: Imaging protocol: XR of the chest. Views: 1 view. COMPARISON: CR XR chest 1V portable [id number] 01/24/2021 1:27 PM FINDINGS: Lungs: The lungs are clear. Pleural spaces: Unremarkable. No pleural effusion. No pneumothorax. Heart/Mediastinum: Unremarkable. No cardiomegaly. Bones/joints: Unremarkable. XR/XR chest 1V portable [id number] IMPRESSION: Normal chest radiograph.
[2021-02-10 16:02] LABS: Ketone (Acetest) Serum Negative (Negative)
[2021-02-10 16:05] LABS: Blood Urea Nitrogen 23 mg/dL (6-20); Calcium 9.2 mg/dL (8.5-10.5); Carbon Dioxide 11 mmol/L (22-29); Chloride 88 mmol/L (98-107); Glomerular Filtration Rate 107.6 mL/min (90-130); Glucose 469 mg/dL (65-115); Osmolality Calculated 294 mOsm/kg (285-295); Sodium 130 mmol/L (136-145)
[2021-02-10 16:08] LABS: Anion Gap 35.8 (5-19)
[2021-02-10 16:09] LABS: Potassium 4.8 mmol/L (3.5-5.1)
[2021-02-10 16:11] LABS: Lipase 76 U/L (13-60)
--- NOTE | 2021-02-10 16:19 | PM.HP ---
Providers/Chief Complaint Primary Care Provider: Loli Diaz APN Chief Complaint: Type 1 Diabetic History of Present Illness Max Duggan is a 20 year old male with history of type 1 diabetes presents today with chief complaint abdominal cramps. Patient is stating that he takes 60 units of Basaglar at night and does manage his sliding scale with carb counting. He has not been able to use insulin for last 48 hours because of his busy work schedule. 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 He experienced multiple episode of emesis in the ER, he was diagnosed with hyperglycemia without DKA with high anion gap in the ER he received insulin bolus, lipase 76 serum ketones negative acidotic with high BUN, I will check drug screen level and start insulin drip with normal saline 20 meqKCl He does not have any link knitting machine operator willing to see our link knitting machine operator on discharge for insulin pump. No recent fever, chills, shortness of breath, diarrhea, camping, sickness. Review of Systems Const: Denies: chills Eyes: Denies: change in vision ENMT: Denies: throat pain Card: Denies: chest pain Resp: Denies: dyspnea GI: Reports: abdominal pain, nausea and vomiting : Denies: flank pain Musc: Denies: neck pain Skin/Breast: Denies: rash Neuro: Denies: headache(s) Psych: Denies: anxiety Endo: Denies: polyuria Jim/Lymph: Denies: easy bruising All/Imm: Denies: urticaria Medications/Allergies Home Medications Medication Instructions Recorded Confirmed Last Taken Type insulin aspart U-100 [Novolog See Rx Instructions .ROUTE .COMPLEX 06/17/19 02/10/21 02/08/21 History Flexpen U-100 Insulin] insulin glargine [Basaglar KwikPen 60 unit SUBCUT BEDTIME 03/05/20 02/10/21 02/09/21 History U-100 Insulin] ibuprofen 400 mg PO Q4H PRN 02/10/21 02/10/21 02/10/21 09:00 History Allergies Allergy/AdvReac Type Severity Reaction Status Date / Time No Known Allergies Allergy Verified 02/10/21 15:38 PFSH Acute PFSH: Medical History (Updated 02/10/21 @ 16:37 by Donavon Belcher MD) Diabetes Surgical History (Updated 02/10/21 @ 16:36 by Donavon Belcher MD) History of dental surgery Family History Other CAD (coronary artery disease) Social History (Updated 02/10/21 @ 16:36 by Donavon Belcher MD) Smoking and tobacco status: current every day smoker e-cigarettes Alcohol intake: never Substance/Drug Use: never Housing: House Vitals/I&O/Wt Last Vital Signs Temp 98.9 F 02/10/21 13:28 Pulse 87 02/10/21 16:18 Resp 14 02/10/21 16:18 BP 113/57 02/10/21 16:18 Pulse Ox 100 02/10/21 16:18 Weight last 48 hrs Weight 58.967 kg Physical Exam Narrative: EXAM NARRATIVE: , Appears stated age, patient was laying comfortably in his bed without any active complaints No neurological deficit S1, S2 No audible stridor or wheezing Saturating well on room air Appropriate mood and affect Abdomen soft nontender Lower extremity no edema Multiple skin tattoos noted Appropriate mood and affect Data : 02/10/21 15:30 02/10/21 15:30 A&P Assessment and plan (1) Type 1 diabetes mellitus: Status: Acute Qualifiers: Diabetes mellitus complication status: with hyperglycemia Qualified Code(s): E10.65 - Type 1 diabetes mellitus with hyperglycemia (2) Hyperglycemia due to type 1 diabetes mellitus: Status: Acute Additional A&P Information Type 1 diabetes with hyperglycemia nonketotic No signs of encephalopathy, infection, pancreatitis, or signs of [place] We will request drug screen level Patient missed his insulin dose last 48 hours Endorses to smoking vaps N.p.o. Start insulin with normal saline 20 mEq KCl Once blood sugar less than 300 we will start D5 half-normal saline with 20 KCl I will let him eat once his anion gap closes High anion gap with acidosis Check lactic acid BUN slightly high at 23 Patient does not take Metformin Willing to follow-up with link knitting machine operator at discharge for insulin pump At baseline he takes 60 units of Basaglar with sliding scale, check A1c level Pseudohyponatremia sodium is normal corrected to high glucose Full code N.p.o. DVT prophylaxis Lovenox Attestations Medical Necessity Statement*: Anticipating stay in the hospital cross more than 2 midnights for requirement of IV insulin Time Spent in Patient Care: 16 - 35 minutes Coding Level of Care Code Acute Director Safety for Chg Fwd Diagnoses Type 1 diabetes mellitus E10.65 Diabetes mellitus complication status: with hyperglycemia Hyperglycemia due to type 1 diabetes mellitus E10.65
[2021-02-10] MEDS: insulin regular-human 250 UNIT in sodium chloride 0.9% 250 ML 10.1 UNIT IV (16:36)
[2021-02-10 17:35] LABS: C Reactive Protein 1.4 mg/L (0.0-4.9); Lactate (Lactic Acid level) 3.5 mmol/L (0.5-2.2)
[2021-02-10 18:13] LABS: Add Urine Microscopic? NO; Charge for UA Resulting for Rev
[2021-02-10 18:17] LABS: Bilirubin Urine Neg (Negative); Blood Urine Neg (Negative); Glucose Urine UA 4+ (Normal); Ketones Urine 3+ (Negative); Leukocyte Esterase Urine Negative (Negative); Nitrate Urine Negative (Negative); Protein Urine Neg (Negative); Urine Appearance Clear (CLEAR); Urine Color Yellow (Yellow); Urobilinogen Urine Norm (Negative); pH Urine 5 (5-7)
[2021-02-10] MEDS: sodium bicarbonate 8.4% 1 mEq/mL 50mL Syr 25 MEQ IVP (18:19)
[2021-02-10 18:22] LABS: Amphetamines Screen Urine Negative (Negative); Barbiturates Screen Urine Negative (Negative); Benzodiazepines Screen Urine Negative (Negative); Cocaine Screen Urine Negative (Negative); Opiate Screen Urine Negative (Negative); PCP Screen Urine Negative (Negative); THC Screen Urine Negative (Negative)
[2021-02-10] MEDS: sodium chlor 0.9% + KCl 20 mEq 20 MEQ/1,000 ML BAG 100 MEQ IV (18:28)
[2021-02-10 18:33] LABS: Blood Urea Nitrogen 20 mg/dL (6-20); Calcium 7.8 mg/dL (8.5-10.5); Carbon Dioxide 14 mmol/L (22-29); Chloride 99 mmol/L (98-107); Creatinine Clr Calc Pharmacy 122.8479; Glomerular Filtration Rate 123.2 mL/min (90-130); Glucose 196 mg/dL (65-115); Osmolality Calculated 288 mOsm/kg (285-295); Sodium 135 mmol/L (136-145)
[2021-02-10 18:35] LABS: Anion Gap 25.9 (5-19); Potassium 3.9 mmol/L (3.5-5.1)
[2021-02-10 19:34] LABS: Estmated Average Glucose 263; Hemoglobin A1C 10.8 % (4.0-6.0)
--- NOTE | 2021-02-10 20:02 | PC.NURSE ---
Dr. Whyte states that she did not receive notification from day hospitalist that this patient would be discharged. Dr. Whyte relates to proceed with admission.
--- NOTE | 2021-02-10 20:03 | PC.NURSE ---
report called to Renee LANGE
[2021-02-10] MEDS: dextrose 5%-ns + KCl 40 40 MEQ/1,000 ML BAG 125 MEQ IV (20:54)
[2021-02-10] MEDS: insulin glargine 100 units/1 mL 60 UNIT SUBCUT (21:47)
[2021-02-10 22:03] LABS: Alanine Aminotransferase 34 U/L (0-41); Albumin Level 3.6 g/dL (3.5-5.2); Alkaline Phosphatase 80 IU/L (40-130); Anion Gap 17.9 (5-19); Aspartate Amino Transferase 49 U/L (0-40); Blood Urea Nitrogen 14 mg/dL (6-20); Calcium 8.1 mg/dL (8.5-10.5); Carbon Dioxide 20 mmol/L (22-29); Chloride 102 mmol/L (98-107); Globulin 1.9 g/dL (1.3-4.6); Glomerular Filtration Rate 143.8 mL/min (90-130); Glucose 103 mg/dL (65-115); Osmolality Calculated 283 mOsm/kg (285-295); Potassium 3.9 mmol/L (3.5-5.1); Sodium 136 mmol/L (136-145); Total Bilirubin 0.4 mg/dL (0.15-1.2); Total Protein 5.5 g/dL (6.6-8.7)
[2021-02-11] VITALS (80 sets, daily range): BP systolic 89–117; BP diastolic 46–57; PULSE 79–115; RESP 11–24; TEMP 36.7–37.1; O2SAT 95–100
[2021-02-11 00:28] LABS: Glucose Point of Care 107 mg/dL (70-110)
[2021-02-11 00:28] LABS: Glucose Point of Care 135 mg/dL (70-110)
[2021-02-11 00:28] LABS: Glucose Point of Care 95 mg/dL (70-110)
[2021-02-11 00:28] LABS: Glucose Point of Care 97 mg/dL (70-110)
[2021-02-11 01:22] LABS: Glucose Point of Care 399 mg/dL (70-110)
[2021-02-11 01:22] LABS: Glucose Point of Care 176 mg/dL (70-110)
[2021-02-11 01:22] LABS: Glucose Point of Care 285 mg/dL (70-110)
[2021-02-11 01:37] LABS: Glucose Point of Care 485 mg/dL (70-110)
[2021-02-11 02:35] LABS: Glucose Point of Care 125 mg/dL (70-110)
[2021-02-11 05:56] LABS: Basophils # 0.1 10^3/uL (0.0-0.1); Basophils % 0.4 %; Eosinophils % 0.2 %; Hemoglobin 13.6 g/dL (11.7-16.6); Lymphocytes # 4.2 10^3/uL (1.5-6.5); Lymphocytes % 34.9 %; Mean Corpuscular HGB Conc 34.9 g/dL (30.0-36.0); Mean Corpuscular Hemoglobin 29.5 pg (28.0-34.0); Mean Corpuscular Volume 84.6 fl (80-94); Mean Platelet Volume 9.1 fL (7.4-10.4); Monocytes # 0.7 10^3/uL (0.2-0.9); Monocytes % 6.1 %; Neutrophils # 6.95 10^3/uL (1.8-8.0); Neutrophils % 57.7 %; Nucleated Red Blood Cells % 0 %; Platelet Count 345 10^3/cmm (130-400); Red Blood Count 4.61 10^6/uL (4.1-5.3); Red Cell Distribution Width 11.8 % (12.1-15.1); White Blood Count 12.1 10^3/uL (4.5-13.0)
[2021-02-11 06:07] LABS: Lactate (Lactic Acid level) 0.5 mmol/L (0.5-2.2)
[2021-02-11 06:18] LABS: Alanine Aminotransferase 32 U/L (0-41); Albumin Level 3.4 g/dL (3.5-5.2); Alkaline Phosphatase 66 IU/L (40-130); Anion Gap 14.9 (5-19); Aspartate Amino Transferase 42 U/L (0-40); Blood Urea Nitrogen 14 mg/dL (6-20); Calcium 8.1 mg/dL (8.5-10.5); Carbon Dioxide 22 mmol/L (22-29); Chloride 102 mmol/L (98-107); Globulin 2.2 g/dL (1.3-4.6); Glomerular Filtration Rate 171.8 mL/min (90-130); Glucose 115 mg/dL (65-115); Osmolality Calculated 281 mOsm/kg (285-295); Potassium 3.9 mmol/L (3.5-5.1); Sodium 135 mmol/L (136-145); Total Bilirubin 0.6 mg/dL (0.15-1.2); Total Protein 5.6 g/dL (6.6-8.7)
--- NOTE | 2021-02-11 07:38 | P.DS_ITS ---
Discharge Providers Date of Admission: 02/10/21 17:50 Date of Discharge: February 11, 2021 Attending Provider at Admission: Donavon Belcher MD Attending Provider at Discharge: Donavon Belcher MD Primary Care Provider: Loli Diaz APN Diagnoses at Discharge Discharge Diagnosis (1) Type 1 diabetes mellitus: Status: Acute Qualifiers: Diabetes mellitus complication status: with hyperglycemia Qualified Code(s): E10.65 - Type 1 diabetes mellitus with hyperglycemia (2) Hyperglycemia due to type 1 diabetes mellitus: Status: Acute Reason for Visit Reason for Visit: Type 1 Diabetic Hospital Course Hospital Course Mr. Duggan was admitted for management of hyperglycemia. He met acidotic criteria however ketones were negative. With IV insulin his anion gap closed within 6 to 8 hours he was switched to subcutaneous insulin and was discharged next morning from the ICU. He was given referral to [facility] consultant Dr. Garcia. At home he takes Basaglar 60 units and does carb counting sliding scale. He stated that he forgot to take his insulin for about 48 hours that caused hyperglycemia without ketosis. Physical Exam Narrative: EXAM NARRATIVE: No neurological deficit S1, S2 No audible stridor or wheezing Saturating well on room air Appropriate mood and affect Abdomen soft nontender Lower extremity no edema Multiple skin tattoos noted Appropriate mood and affect Discharge Data Data Completed and Pending: Completed Studies During Hospitalization Category Date Time Status XR chest 1V sheri ble [id number] Stat Exams 02/10/21 15:53 Completed Labs from last 24 hours 02/11/21 02/11/21 02/11/21 05:04 05:04 05:04 WBC 12.1 RBC 4.61 Hgb 13.6 Hct 39.0 L MCV 84.6 MCH 29.5 MCHC 34.9 RDW 11.8 L Plt Count 345 MPV 9.1 Neut % (Auto) 57.7 Lymph % (Auto) 34.9 [place] % (Auto) 6.1 Eos % (Auto) 0.2 Baso % (Auto) 0.4 Neut # (Auto) 6.95 Lymph # (Auto) 4.2 [place] # (Auto) 0.7 Eos # (Auto) 0.0 Baso # (Auto) 0.1 Nucleated RBC % (a uto) 0 Nucleated RBCs # 0.0 Specimen Type Sample Site ABG pH ABG pCO2 ABG pO2 ABG HCO3 ABG O2 Saturation ABG Base Excess Tong Test A-a O2 Gradient Hematocrit Hgb O2 Saturation Carboxyhemoglobin Methemoglobin Total Hemoglobin Ionized Calcium O2 Delivery Device FiO2 Regional Ehs Manager ID Sodium 135 L Potassium 3.9 Chloride 102 Carbon Dioxide 22 Anion Gap 14.9 BUN 14 Creatinine 0.6 L GFR Calculation 171.8 H Glucose 115 POC Glucose Estimat Average Gl ucose Hemoglobin A1c Calculated Osmolal ity 281 L Lactate 0.5 Calcium 8.1 L Total Bilirubin 0.6 AST 42 H ALT 32 Alkaline Phosphata se 66 C-Reactive Protein Total Protein 5.6 L Albumin 3.4 L Globulin 2.2 Lipase Urine Color Urine Appearance Urine pH Ur Specific Gravit y Urine Protein Urine Glucose (UA) Urine Ketones Urine Blood Urine Nitrate Urine Bilirubin Urine Urobilinogen Ur Leukocyte Cara ase Urine Opiates Scre en Ur Barbiturates Sc reen Ur Phencyclidine S crn Ur Amphetamines Sc reen U Benzodiazepines Scrn Urine Cocaine Scre en U Marijuana (THC) Screen Serum Ketones 02/11/21 02/11/21 02/10/21 02:30 00:13 23:07 WBC RBC Hgb Hct MCV MCH MCHC RDW Plt Count MPV Neut % (Auto) Lymph % (Auto) [place] % (Auto) Eos % (Auto) Baso % (Auto) Neut # (Auto) Lymph # (Auto) [place] # (Auto) Eos # (Auto) Baso # (Auto) Nucleated RBC % (a uto) Nucleated RBCs # Specimen Type Sample Site ABG pH ABG pCO2 ABG pO2 ABG HCO3 ABG O2 Saturation ABG Base Excess Tong Test A-a O2 Gradient Hematocrit Hgb O2 Saturation Carboxyhemoglobin Methemoglobin Total Hemoglobin Ionized Calcium O2 Delivery Device FiO2 Regional Ehs Manager ID Sodium Potassium Chloride Carbon Dioxide Anion Gap BUN Creatinine GFR Calculation Glucose POC Glucose 125 H 135 H 107 Estimat Average Gl ucose Hemoglobin A1c Calculated Osmolal ity Lactate Calcium Total Bilirubin AST ALT Alkaline Phosphata se C-Reactive Protein Total Protein Albumin Globulin Lipase Urine Color Urine Appearance Urine pH Ur Specific Gravit y Urine Protein Urine Glucose (UA) Urine Ketones Urine Blood Urine Nitrate Urine Bilirubin Urine Urobilinogen Ur Leukocyte Cara ase Urine Opiates Scre en Ur Barbiturates Sc reen Ur Phencyclidine S crn Ur Amphetamines Sc reen U Benzodiazepines Scrn Urine Cocaine Scre en U Marijuana (THC) Screen Serum Ketones 02/10/21 02/10/21 02/10/21 22:10 21:40 20:38 WBC RBC Hgb Hct MCV MCH MCHC RDW Plt Count MPV Neut % (Auto) Lymph % (Auto) [place] % (Auto) Eos % (Auto) Baso % (Auto) Neut # (Auto) Lymph # (Auto) [place] # (Auto) Eos # (Auto) Baso # (Auto) Nucleated RBC % (a uto) Nucleated RBCs # Specimen Type Sample Site ABG pH ABG pCO2 ABG pO2 ABG HCO3 ABG O2 Saturation ABG Base Excess Tong Test A-a O2 Gradient Hematocrit Hgb O2 Saturation Carboxyhemoglobin Methemoglobin Total Hemoglobin Ionized Calcium O2 Delivery Device FiO2 Regional Ehs Manager ID Sodium 136 Potassium 3.9 Chloride 102 Carbon Dioxide 20 L Anion Gap 17.9 BUN 14 Creatinine 0.7 GFR Calculation 143.8 H Glucose 103 POC Glucose 95 97 Estimat Average Gl ucose Hemoglobin A1c Calculated Osmolal ity 283 L Lactate Calcium 8.1 L Total Bilirubin 0.4 AST 49 H ALT 34 Alkaline Phosphata se 80 C-Reactive Protein Total Protein 5.5 L Albumin 3.6 Globulin 1.9 Lipase Urine Color Urine Appearance Urine pH Ur Specific Gravit y Urine Protein Urine Glucose (UA) Urine Ketones Urine Blood Urine Nitrate Urine Bilirubin Urine Urobilinogen Ur Leukocyte Cara ase Urine Opiates Scre en Ur Barbiturates Sc reen Ur Phencyclidine S crn Ur Amphetamines Sc reen U Benzodiazepines Scrn Urine Cocaine Scre en U Marijuana (THC) Screen Serum Ketones 02/10/21 02/10/21 02/10/21 18:38 18:10 17:55 WBC RBC Hgb Hct MCV MCH MCHC RDW Plt Count MPV Neut % (Auto) Lymph % (Auto) [place] % (Auto) Eos % (Auto) Baso % (Auto) Neut # (Auto) Lymph # (Auto) [place] # (Auto) Eos # (Auto) Baso # (Auto) Nucleated RBC % (a uto) Nucleated RBCs # Specimen Type Sample Site ABG pH ABG pCO2 ABG pO2 ABG HCO3 ABG O2 Saturation ABG Base Excess Tong Test A-a O2 Gradient Hematocrit Hgb O2 Saturation Carboxyhemoglobin Methemoglobin Total Hemoglobin Ionized Calcium O2 Delivery Device FiO2 Regional Ehs Manager ID Sodium 135 L Potassium 3.9 Chloride 99 Carbon Dioxide 14 L Anion Gap 25.9 H BUN 20 Creatinine 0.8 GFR Calculation 123.2 Glucose 196 H POC Glucose 176 H Estimat Average Gl ucose Hemoglobin A1c Calculated Osmolal ity 288 Lactate Calcium 7.8 L Total Bilirubin AST ALT Alkaline Phosphata se C-Reactive Protein Total Protein Albumin Globulin Lipase Urine Color Urine Appearance Urine pH Ur Specific Gravit y Urine Protein Urine Glucose (UA) Urine Ketones Urine Blood Urine Nitrate Urine Bilirubin Urine Urobilinogen Ur Leukocyte Cara ase Urine Opiates Scre en Negative Ur Barbiturates Sc reen Negative Ur Phencyclidine S crn Negative Ur Amphetamines Sc reen Negative U Benzodiazepines Scrn Negative Urine Cocaine Scre en Negative U Marijuana (THC) Screen Negative Serum Ketones 02/10/21 02/10/21 02/10/21 17:55 17:34 16:23 WBC RBC Hgb Hct MCV MCH MCHC RDW Plt Count MPV Neut % (Auto) Lymph % (Auto) [place] % (Auto) Eos % (Auto) Baso % (Auto) Neut # (Auto) Lymph # (Auto) [place] # (Auto) Eos # (Auto) Baso # (Auto) Nucleated RBC % (a uto) Nucleated RBCs # Specimen Type Sample Site ABG pH ABG pCO2 ABG pO2 ABG HCO3 ABG O2 Saturation ABG Base Excess Tong Test A-a O2 Gradient Hematocrit Hgb O2 Saturation Carboxyhemoglobin Methemoglobin Total Hemoglobin Ionized Calcium O2 Delivery Device FiO2 Regional Ehs Manager ID Sodium Potassium Chloride Carbon Dioxide Anion Gap BUN Creatinine GFR Calculation Glucose POC Glucose 285 H 399 H Estimat Average Gl ucose Hemoglobin A1c Calculated Osmolal ity Lactate Calcium Total Bilirubin AST ALT Alkaline Phosphata se C-Reactive Protein Total Protein Albumin Globulin Lipase Urine Color Yellow Urine Appearance Clear Urine pH 5 Ur Specific Gravit y 1.020 Urine Protein Neg Urine Glucose (UA) 4+ H Urine Ketones 3+ H Urine Blood Neg Urine Nitrate Negative Urine Bilirubin Neg Urine Urobilinogen Norm Ur Leukocyte Cara ase Negative Urine Opiates Scre en Ur Barbiturates Sc reen Ur Phencyclidine S crn Ur Amphetamines Sc reen U Benzodiazepines Scrn Urine Cocaine Scre en U Marijuana (THC) Screen Serum Ketones 02/10/21 02/10/21 02/10/21 15:35 15:30 15:30 WBC RBC Hgb Hct MCV MCH MCHC RDW Plt Count MPV Neut % (Auto) Lymph % (Auto) [place] % (Auto) Eos % (Auto) Baso % (Auto) Neut # (Auto) Lymph # (Auto) [place] # (Auto) Eos # (Auto) Baso # (Auto) Nucleated RBC % (a uto) Nucleated RBCs # Specimen Type Arterial Sample Site Radial, right ABG pH 7.18 L* ABG pCO2 26.5 L ABG pO2 115.0 H ABG HCO3 9.8 L ABG O2 Saturation 97.8 ABG Base Excess -17.0 L Tong Test Pos A-a O2 Gradient Not Reportable Hematocrit 46.7 Hgb O2 Saturation 96.2 Carboxyhemoglobin 1.0 Methemoglobin 0.6 Total Hemoglobin 15.2 Ionized Calcium 1.2 O2 Delivery Device Room air FiO2 21.0 Regional Ehs Manager ID Cak Sodium 131.0 Potassium 4.6 Chloride Carbon Dioxide Anion Gap BUN Creatinine GFR Calculation Glucose 522.0 H POC Glucose Estimat Average Gl ucose Hemoglobin A1c Calculated Osmolal ity Lactate 3.5 H Calcium Total Bilirubin AST ALT Alkaline Phosphata se C-Reactive Protein 1.4 Total Protein Albumin Globulin Lipase Urine Color Urine Appearance Urine pH Ur Specific Gravit y Urine Protein Urine Glucose (UA) Urine Ketones Urine Blood Urine Nitrate Urine Bilirubin Urine Urobilinogen Ur Leukocyte Cara ase Urine Opiates Scre en Ur Barbiturates Sc reen Ur Phencyclidine S crn Ur Amphetamines Sc reen U Benzodiazepines Scrn Urine Cocaine Scre en U Marijuana (THC) Screen Serum Ketones 02/10/21 02/10/21 02/10/21 15:30 15:30 15:30 WBC RBC Hgb Hct MCV MCH MCHC RDW Plt Count MPV Neut % (Auto) Lymph % (Auto) [place] % (Auto) Eos % (Auto) Baso % (Auto) Neut # (Auto) Lymph # (Auto) [place] # (Auto) Eos # (Auto) Baso # (Auto) Nucleated RBC % (a uto) Nucleated RBCs # Specimen Type Sample Site ABG pH ABG pCO2 ABG pO2 ABG HCO3 ABG O2 Saturation ABG Base Excess Tong Test A-a O2 Gradient Hematocrit Hgb O2 Saturation Carboxyhemoglobin Methemoglobin Total Hemoglobin Ionized Calcium O2 Delivery Device FiO2 Regional Ehs Manager ID Sodium Potassium Chloride Carbon Dioxide Anion Gap BUN Creatinine GFR Calculation Glucose POC Glucose Estimat Average Gl ucose 263 Hemoglobin A1c 10.8 H Calculated Osmolal ity Lactate Calcium Total Bilirubin AST ALT Alkaline Phosphata se C-Reactive Protein Total Protein Albumin Globulin Lipase 76 H Urine Color Urine Appearance Urine pH Ur Specific Gravit y Urine Protein Urine Glucose (UA) Urine Ketones Urine Blood Urine Nitrate Urine Bilirubin Urine Urobilinogen Ur Leukocyte Cara ase Urine Opiates Scre en Ur Barbiturates Sc reen Ur Phencyclidine S crn Ur Amphetamines Sc reen U Benzodiazepines Scrn Urine Cocaine Scre en U Marijuana (THC) Screen Serum Ketones Negative 02/10/21 02/10/21 02/10/21 15:30 15:30 13:33 WBC 20.0 H RBC 5.20 Hgb 15.4 Hct 46.1 MCV 88.7 MCH 29.6 MCHC 33.4 RDW 11.4 L Plt Count 404 H MPV 9.8 Neut % (Auto) 80.1 Lymph % (Auto) 13.1 [place] % (Auto) 3.3 Eos % (Auto) 0.1 Baso % (Auto) 0.9 Neut # (Auto) 16.00 H Lymph # (Auto) 2.6 [place] # (Auto) 0.7 Eos # (Auto) 0.0 Baso # (Auto) 0.2 H Nucleated RBC % (a uto) 0 Nucleated RBCs # 0.0 Specimen Type Sample Site ABG pH ABG pCO2 ABG pO2 ABG HCO3 ABG O2 Saturation ABG Base Excess Tong Test A-a O2 Gradient Hematocrit Hgb O2 Saturation Carboxyhemoglobin Methemoglobin Total Hemoglobin Ionized Calcium O2 Delivery Device FiO2 Regional Ehs Manager ID Sodium 130 L Potassium 4.8 Chloride 88 L Carbon Dioxide 11 L Anion Gap 35.8 H BUN 23 H Creatinine 0.9 GFR Calculation 107.6 Glucose 469 H POC Glucose 485 H Estimat Average Gl ucose Hemoglobin A1c Calculated Osmolal ity 294 Lactate Calcium 9.2 Total Bilirubin AST ALT Alkaline Phosphata se C-Reactive Protein Total Protein Albumin Globulin Lipase Urine Color Urine Appearance Urine pH Ur Specific Gravit y Urine Protein Urine Glucose (UA) Urine Ketones Urine Blood Urine Nitrate Urine Bilirubin Urine Urobilinogen Ur Leukocyte Cara ase Urine Opiates Scre en Ur Barbiturates Sc reen Ur Phencyclidine S crn Ur Amphetamines Sc reen U Benzodiazepines Scrn Urine Cocaine Scre en U Marijuana (THC) Screen Serum Ketones Vitals: Last Vital Signs Temp 98.6 F 02/11/21 04:00 Pulse 88 02/11/21 07:15 Resp 19 H 02/11/21 07:15 BP 110/52 02/11/21 05:15 Pulse Ox 98 02/11/21 07:15 Discharge Plan Discharge Patient Disposition: Home Condition: Stable Prescriptions: Continued Basaglar KwikPen U-100 Insulin 100 unit/mL (3 mL) insulin pen 60 unit SUBCUT BEDTIME RF: 0 insulin aspart U-100 [Novolog Flexpen U-100 Insulin] 100 unit/mL (3 mL) Insulin Pen See Rx Instructions .ROUTE .COMPLEX RF: 0 ibuprofen 200 mg Tablet 400 mg PO Q4H PRN (Reason: Pain) RF: 0 Discharge Orders: Discharge Order (Routine); Ordered 02/11/21 Ordered By: Donavon Belcher Referrals: Jenn Garcia MD [Physician] - 02/13/21 9:00 am (T1DM this will be a telephone call appt) Joe,ELIZABETH Ennis [Primary Care Provider] - Discharge Diet: Diabetic Discharge Activity: Increase activity as tolerated Patient Instructions: Diabetic Ketoacidosis (DC), Diabetes Mellitus Type 1 in Adults (DC), Hyperosmolar Hyperglycemic State (DC), Opioid Safety Discharge Attestations Time Spent in Discharge Care*: less than 30 min Quality Metrics Clinical Quality Measures During this hospital stay, did patient experience: None Coding Level of Care Code Acute Chg FW DC note Diagnoses Type 1 diabetes mellitus E10.65 Diabetes mellitus complication status: with hyperglycemia Hyperglycemia due to type 1 diabetes mellitus E10.65
[2021-02-11 07:54] LABS: Glucose Point of Care 138 mg/dL (70-110)
--- NOTE | 2021-02-12 09:04 | PC.SOCIAL ---
follow up made. patient is feeling much better. patient has follow up appointment for tomorrow with . Patient wishes to make his own follow up appointment with [facility]. No new medications prescribed at discharge.
--- NOTE | 2021-02-14 18:00 | PC.RESP ---
SMOKING CESSATION INFORMATION SENT TO PATIENT.
== END 2021-02-11 10:08 | disposition home or self-care (01) | DRG 639 ==
LOC: ER 17:01 → ICU 02-11 06:58
PROVIDERS: Student in an Organized Health Care Education/Training Program; Admitting Provider Internal Medicine; Emergency Provider Family Medicine; PCP Nurse Practitioner Family; Visit Provider Internal Medicine
DX: E10.65 Type 1 diabetes mellitus with hyperglycemia (principal); R11.2 Nausea with vomiting, unspecified; R10.9 Unspecified abdominal pain; F17.290 Nicotine dependence, other tobacco product, uncomplicated; Z79.4 Long term (current) use of insulin
CPT/HCPCS: 36415; 36416; 36600; 71045; 80048; 80051; 80053; 80306; 81003; 82009; 82330; 82805; 82962; 83036; 83605; 83690; 85025; 86140; 96365; 96366; 96367; 96372; 99285; J1815 ×2; J7030; J7050

== ENCOUNTER → 2021-05-16 08:07 | Outpatient (BNVA) | payer OTHER, SELFPAY | PROVIDERS: PCP Nurse Practitioner Family; Visit Provider Internal Medicine | DX: E10.65 Type 1 diabetes mellitus with hyperglycemia (principal); E10.649 Type 1 diabetes mellitus with hypoglycemia without coma; F32.A Depression, unspecified; Z79.4 Long term (current) use of insulin | CPT/HCPCS: 99214 ==

== ENCOUNTER → 2021-06-03 10:05 | Outpatient (BNVA) | payer OTHER, SELFPAY | PROVIDERS: PCP Nurse Practitioner Family; Visit Provider Nurse Practitioner Family | DX: Z20.822 Contact with and (suspected) exposure to COVID-19 (principal); E10.65 Type 1 diabetes mellitus with hyperglycemia; Z79.4 Long term (current) use of insulin | CPT/HCPCS: 87635 ==

== ENCOUNTER 2021-06-09 08:29 | Outpatient (CLI) | payer OTHER, SELFPAY ==
[2021-06-09 08:40] VITALS: BP 124/79; PULSE 86; RESP 16; TEMP 36.5; O2SAT 98; BMI 20.4
[2021-06-09 10:20] VITALS: BP 111/73; BP 124/82; PULSE 83; PULSE 84; RESP 16; RESP 17; TEMP 36.5; TEMP 36.8; O2SAT 98; O2SAT 99
== END 2021-06-09 08:30 | disposition home or self-care (01) ==
LOC: OPS 08:31
PROVIDERS: PCP Nurse Practitioner Family; Visit Provider Nurse Practitioner
DX: U07.1 COVID-19 (principal)
CPT/HCPCS: 96365

== ENCOUNTER 2022-01-18 12:52 | Inpatient (IN) | payer OTHER, SELFPAY ==
[2022-01-18] VITALS (27 sets, daily range): BP systolic 98–121; BP diastolic 55–76; PULSE 80–110; RESP 13–21; TEMP 36.6–37.1; O2SAT 80–100; BMI 19.1
--- NOTE | 2022-01-18 13:00 | ED_ITS ---
HPI - General Adult General: Chief complaint: Nausea/Vomiting/Diarrhea Stated complaint: HYPERGLYCEMIA Time Seen by Provider: 01/18/22 12:54 History of Present Illness: Patient is a 21-year-old male with history of type 1 diabetes complicated by DKA presenting to the emergency room for concerns of elevated glucose, abdominal pain nausea vomiting. Patient tells me that earlier today, his mom gave him short acting insulin. Patient tells me he is no longer taking his long-acting insulin. Patient tells me that he does not remember when units of Lovenox that he received earlier today. However because of elevated glucose, EMS was called patient was brought to the emergency room. On arrival, patient complains of diffuse abdominal pain nausea vomiting. Patient has any diarrhea cough, runny nose sore throat fever or chills. In the past, patient is treated for DKA has been noncompliance. Patient has no other complaints at this time. Onset: earlier today Duration:ongoing Location:home Severity:moderate Associated symptoms: Reports nausea and vomiting; Deny chest pain, dyspnea, rash or palpitations Review of Systems Const: Denies: fever(s) or chills Eyes: Denies: change in vision ENMT: Denies: mouth pain Card: Denies: chest pain or palpitations Resp: Denies: dyspnea or non-productive cough GI: Reports: abdominal pain (+mild diffuse pain), nausea and vomiting; Denies: diarrhea : Denies: dysuria Musc: Denies: extremity pain Skin/Breast: Denies: rash or new lesions Neuro: Denies: weakness in extremities Psych: Reports: other (Normal mood) Jim/Lymph: Denies: easy bruising [facility] ED PFSH: Medical History (Updated 01/20/22 @ 00:02 by ) Depression Diabetes DKA (diabetic ketoacidoses) DKA (diabetic ketoacidosis) Hyperglycemia Non-compliance Type 1 diabetes mellitus Surgical History History of dental surgery Family History Father No problems noted. Mother No problems noted. Other CAD (coronary artery disease) Social History Smoking and tobacco status: never smoked Alcohol intake: never Housing: House Physical Exam Const: COMMON NORMALS: alert HENMT: COMMON NORMALS: atraumatic HEAD & SCALP: atraumatic MOUTH: moist mucous membranes abnormal Eye: COMMON NORMALS: EOMs intact bilaterally and conjunctivae normal CONJUNCTIVA: Yes conjunctivae normal Neck/C-Spine: COMMON NORMALS: full ROM and supple Resp: COMMON NORMALS: normal respiratory effort and clear to auscultation bilaterally AUSCULTATION: clear to auscultation bilaterally Cardio: COMMON NORMALS: regular rate RATE: regular rate GI: COMMON NORMALS: Soft to palpation and non-tender PALPATION: Yes Soft to palpation OTHER: No focal TTP. NO guarding rebound, guarding, rigidity. No CVA tenderness to percussion. Neg Lewis/Neg McBurney's point tenderness, no suprabupic tenderness to palpation. Extremity: COMMON NORMALS: full ROM Neuro: SENSORIUM/ORIENTATION: Yes alert MOTOR EXAM: No Abnormal motor strength present and Other motor observations present (no focal motor deficits) Psych: COMMON NORMALS: speech normal SPEECH: Yes normal speech MOOD & AFFECT: Yes euthymic mood Course Vital Signs: Vital signs: Vital Signs Temperature 98.2 F 01/19/22 15:04 Pulse Rate 85 01/19/22 15:04 Respiratory Rate 16 01/19/22 15:04 Blood Pressure 127/85 01/19/22 15:04 Pulse Oximetry 97 01/19/22 13:00 Oxygen Delivery Me thod 01/19/22 13:55 [facility] - General Adult Medical Decision Making 21-year-old male with a history of diabetes complicated by DKA presenting to emergency room with complaints of elevated glucose, diffuse abdominal pain nausea vomiting. Exam, patient appears to be dry. Hemodynamically stable. No focal abdominal tenderness palpation. Patient initial glucose 502 today by fingerstick. Lab consistent with DKA. K of 4.2. Patient received 2L of LR. Patient is now on an insulin drip with supplemental potassium. Heart rate appears to be impr oving. Disposition: ICU Lab Data : 01/19/22 03:18 01/19/22 09:53 Radiology Impressions Abdomen/Pelvis CT 01/18/22 14:30 IMPRESSION: 1. Soft tissue abnormalities. See discussion above. 2. Other nonacute findings as described. Laboratory Results WBC 8.9 10^3/uL (4.0-10.0) 01/18/22 13:17 RBC 5.28 10^6/uL (4.1-5.3) 01/18/22 13:17 Hgb 16.1 g/dL (11.7-16.6) 01/18/22 13:17 Hct 45.8 % (42.0-52.0) 01/18/22 13:17 MCV 86.7 fl (80-94) 01/18/22 13:17 MCH 30.5 pg (28.0-34.0) 01/18/22 13:17 MCHC 35.2 g/dL (30.0-36.0) 01/18/22 13:17 RDW 11.2 % (12.1-15.1) L 01/18/22 13:17 Plt Count 318 10^3/cmm (130-400) 01/18/22 13:17 MPV 9.6 fL (7.4-10.4) 01/18/22 13:17 Neut % (Auto) 75.5 % 01/18/22 13:17 Lymph % (Auto) 18.9 % 01/18/22 13:17 [place] % (Auto) 2.5 % 01/18/22 13:17 Eos % (Auto) 0.6 % 01/18/22 13:17 Baso % (Auto) 0.6 % 01/18/22 13:17 Neut # (Auto) 6.69 10^3/uL (1.8-7.7) 01/18/22 13:17 Lymph # (Auto) 1.7 10^3/uL (0.8-4.8) 01/18/22 13:17 [place] # (Auto) 0.2 10^3/uL (0.2-0.9) 01/18/22 13:17 Eos # (Auto) 0.1 10^3/uL (0.0-0.8) 01/18/22 13:17 Baso # (Auto) 0.1 10^3/uL (0.0-0.1) 01/18/22 13:17 Nucleated RBC % (auto) 0 % 01/18/22 13:17 Nucleated RBCs # 0.0 /100WBC 01/18/22 13:17 Specimen Type Arterial 01/18/22 13:04 Sample Site Radial, left 01/18/22 13:04 ABG pH 7.22 (7.35-7.45) L 01/18/22 13:04 ABG pCO2 27.3 mmHg (35-45) L 01/18/22 13:04 ABG pO2 108.0 mmHg (80.0-100.0) H 01/18/22 13:04 ABG HCO3 11.3 mmol/L (22-26) L 01/18/22 13:04 ABG O2 Saturation 98.2 01/18/22 13:04 ABG Base Excess -14.7 mmol/L (-2.0-2.0) L 01/18/22 13:04 Tong Test Pos 01/18/22 13:04 A-a O2 Gradient 0.8 mmHg (5-10) L 01/18/22 13:04 Hematocrit 48.8 % (42-52) 01/18/22 13:04 Hgb O2 Saturation 96.2 % (95-100) 01/18/22 13:04 Carboxyhemoglobin 1.4 %THgb (0.4-20.1) 01/18/22 13:04 Methemoglobin 0.6 % (0.4-1.5) 01/18/22 13:04 Total Hemoglobin 15.9 g/dL (14-18) 01/18/22 13:04 Sodium 135.0 mmol/L (131-143) 01/18/22 13:04 Potassium 4.1 mmol/L (3.5-5.0) 01/18/22 13:04 Glucose 419.0 mg/dL (70-115) H 01/18/22 13:04 Ionized Calcium 1.3 mmol/L (1.1-1.4) 01/18/22 13:04 O2 Delivery Device Room air 01/18/22 13:04 FiO2 21.0 % 01/18/22 13:04 Teletypesetter Operator ID Cak 01/18/22 13:04 Sodium 133 mmol/L (136-145) L 01/18/22 13:17 Potassium 4.2 mmol/L (3.5-5.1) 01/18/22 13:17 Chloride 91 mmol/L (98-107) L 01/18/22 13:17 Carbon Dioxide 14 mmol/L (22-29) L 01/18/22 13:17 Anion Gap 32.2 (5-19) H 01/18/22 13:17 BUN 19 mg/dL (6-20) 01/18/22 13:17 Creatinine 0.9 mg/dL (0.7-1.2) 01/18/22 13:17 GFR Calculation 106.5 mL/min (90-130) 01/18/22 13:17 Glucose 432 mg/dL (65-115) H 01/18/22 13:17 POC Glucose 304 mg/dL (70-110) H 01/18/22 14:32 Calculated Osmolality 297 mOsm/kg (285-295) H 01/18/22 13:17 Calcium 9.1 mg/dL (8.5-10.5) 01/18/22 13:17 Iron 82 ug/dL (59-158) 01/18/22 13:17 TIBC 233 mcg/dl 01/18/22 13:17 % Saturation 35.1 % (20-50) 01/18/22 13:17 Unsat Iron Binding 151 ug/dL (112-347) 01/18/22 13:17 Total Bilirubin 0.4 mg/dL (0.15-1.2) 01/18/22 13:17 AST 15 U/L (0-40) 01/18/22 13:17 ALT 19 U/L (0-41) 01/18/22 13:17 Alkaline Phosphatase 168 IU/L (40-130) H 01/18/22 13:17 Total Protein 7.3 g/dL (6.6-8.7) 01/18/22 13:17 Albumin 4.4 g/dL (3.5-5.2) 01/18/22 13:17 Globulin 2.9 g/dL (1.3-4.6) 01/18/22 13:17 Lipase 55 U/L (13-60) 01/18/22 13:17 Procalcitonin 0.11 ng/mL (0-0.5) 01/18/22 13:17 TSH 1.09 uIU/mL (0.27-4.20) 01/18/22 13:25 Urine Color Yellow (Yellow) 01/18/22 14:00 Urine Appearance Clear (CLEAR) 01/18/22 14:00 Urine pH 5 (5-7) 01/18/22 14:00 Ur Specific [place] 1.020 (1.005-1.030) 01/18/22 14:00 Urine Protein Neg (Negative) 01/18/22 14:00 Urine Glucose (UA) 4+ (Normal) H 01/18/22 14:00 Urine Ketones 3+ (Negative) H 01/18/22 14:00 Urine Blood Neg (Negative) 01/18/22 14:00 Urine Nitrate Negative (Negative) 01/18/22 14:00 Urine Bilirubin Neg (Negative) 01/18/22 14:00 Urine Urobilinogen Norm mg/dL (Negative) 01/18/22 14:00 Ur Leukocyte Esterase Negative (Negative) 01/18/22 14:00 Serum Ketones Positive (Negative) H 01/18/22 13:17 Critical Care Time Critical Care Time: Critical Care Time: Yes Total Critical Care Time: 35 Attestation: The high probability of a clinically significant, sudden or life threatening deterioration of the patient's endocrinological system(s) required my full and direct attention, intervention and personal management. The critical care time is as shown. This time is in addition to time spent performing any reported procedures but includes the following: [x] Data and vital sign review and interpretation [x] Patient assessment, examination and intervention [x] Documentation [x] Medication orders and management Discharge Plan Discharge Patient Disposition: Admitted As Inpatient Admit Provider: Denis Rodriguez Clinical Impression: Hyperglycemia, DKA (diabetic ketoacidosis) Condition: Stable Discharge Diet: Advance as tolerated Discharge Activity: Increase activity as tolerated Coding Level of Care Code ED Row Boss Hoeing for Chg Fwd Exam Comprehensive
[2022-01-18 13:01] LABS: Glucose Point of Care 502 mg/dL (70-110)
[2022-01-18 13:15] LABS: ABG PCO2 27.3 mmHg (35-45); ABG PH Result 7.22 (7.35-7.45); Alveolar-Arterial Oxygen Gradi 0.8 mmHg (5-10); Arterial Blood Gas Hematocrit 48.8 % (42-52); Base Excess ABG -14.7 mmol/L (-2.0-2.0); Blood Gas Allen Test Pos; Blood Gas Operator Identificat CAK; Blood Gas Sample Site Radial, left; Blood Gas Sample Type Arterial; Carboxyhemoglobin 1.4 %THgb (0.4-20.1); HCO3 ABG 11.3 mmol/L (22-26); HGB O2 Sat 96.2 % (95-100); Ionized Calcium Level - ABG 1.3 mmol/L (1.1-1.4); Methemoglobin 0.6 % (0.4-1.5); Oxygen Device ROOM AIR; Oxygen Saturation ABG 98.2; Potassium Level - ABG 4.1 mmol/L (3.5-5.0); Total Hemoglobin 15.9 g/dL (14-18)
[2022-01-18] MEDS: lactated ringers 1,000 ML 999 ML IV ×2 (13:20→14:03)
--- NOTE | 2022-01-18 13:52 | ECG_ITS ---
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 Measurements Intervals [place] Rate: 111 P: 75 MS: 128 QRS: 51 QRSD: 94 T: 67 QT: 343 QTc: 466 Interpretive Statements SINUS TACHYCARDIA INDETERMINATE AXIS Compared to ECG 03/05/2020 18:57:51 Indeterminate axis now present Sinus rhythm no longer present Electronically Signed On 01-19-2022 17:39:52 CDT by Diaz Ireland M.D. [id number]
[2022-01-18 14:01] LABS: Basophils # 0.1 10^3/uL (0.0-0.1); Basophils % 0.6 %; Eosinophils # 0.1 10^3/uL (0.0-0.8); Eosinophils % 0.6 %; Hematocrit 45.8 % (42.0-52.0); Hemoglobin 16.1 g/dL (11.7-16.6); Lymphocytes # 1.7 10^3/uL (0.8-4.8); Lymphocytes % 18.9 %; Mean Corpuscular HGB Conc 35.2 g/dL (30.0-36.0); Mean Corpuscular Hemoglobin 30.5 pg (28.0-34.0); Mean Corpuscular Volume 86.7 fl (80-94); Mean Platelet Volume 9.6 fL (7.4-10.4); Monocytes # 0.2 10^3/uL (0.2-0.9); Monocytes % 2.5 %; Neutrophils # 6.69 10^3/uL (1.8-7.7); Neutrophils % 75.5 %; Nucleated Red Blood Cells % 0 %; Platelet Count 318 10^3/cmm (130-400); Red Blood Count 5.28 10^6/uL (4.1-5.3); Red Cell Distribution Width 11.2 % (12.1-15.1); White Blood Count 8.9 10^3/uL (4.0-10.0)
[2022-01-18 14:14] LABS: Add Urine Microscopic? NO; Charge for UA Resulting for Rev
[2022-01-18 14:22] LABS: Alanine Aminotransferase 19 U/L (0-41); Albumin Level 4.4 g/dL (3.5-5.2); Alkaline Phosphatase 168 IU/L (40-130); Aspartate Amino Transferase 15 U/L (0-40); Blood Urea Nitrogen 19 mg/dL (6-20); Calcium 9.1 mg/dL (8.5-10.5); Carbon Dioxide 14 mmol/L (22-29); Chloride 91 mmol/L (98-107); Globulin 2.9 g/dL (1.3-4.6); Glomerular Filtration Rate 106.5 mL/min (90-130); Glucose 432 mg/dL (65-115); Lipase 55 U/L (13-60); Osmolality Calculated 297 mOsm/kg (285-295); Sodium 133 mmol/L (136-145); Total Bilirubin 0.4 mg/dL (0.15-1.2); Total Protein 7.3 g/dL (6.6-8.7)
[2022-01-18 14:24] LABS: Anion Gap 32.2 (5-19); Potassium 4.2 mmol/L (3.5-5.1)
--- NOTE | 2022-01-18 14:30 | CTR_ITS ---
PROCEDURE INFORMATION: Exam: CT Abdomen And Pelvis With Contrast Exam date and time: 01/18/2022 2:54 PM Age: 21 years old Clinical indication: Abdominal pain; Generalized; Additional info: Abd pain TECHNIQUE: Imaging protocol: Computed tomography of the abdomen and pelvis with contrast. Radiation optimization: All CT scans at this facility use at least one of these dose optimization techniques: automated exposure control; mA and/or kV adjustment per patient size (includes targeted exams where dose is matched to clinical indication); or iterative reconstruction. Contrast material: OMIN 350; Contrast volume: 80 ml; Contrast route: INTRAVENOUS (IV); COMPARISON: CT abdomen pelvis wo con [id number] 07/09/2019 5:50 PM RADIATION DOSE METRICS: Total DLP (mGy-cm): 375.97 FINDINGS: Lungs: Right basilar pulmonary scarring and tiny thin-walled lung cysts, measuring up to 14 mm. Liver: Normal. No mass. Gallbladder and bile ducts: Normal. No calcified stones. No ductal dilation. Pancreas: Normal. No ductal dilation. Spleen: Normal spleen size with calcified granulomas. Adrenal glands: Normal. No mass. Kidneys and ureters: No obstructing calculus. No hydronephrosis. Stomach and bowel: Unremarkable. No obstruction. No mucosal thickening. Low stool burden. Appendix: No evidence of appendicitis. Intraperitoneal space: Unremarkable. No free air. No significant fluid collection. Vasculature: No abdominal aortic aneurysm. Lymph nodes: No enlarged lymph nodes. Urinary bladder: Unremarkable as visualized. Reproductive: Unremarkable as visualized. Bones/joints: No acute fracture. Soft tissues: Again noted is a small area of skin thickening and superficial subcutaneous soft tissue density in the left periumbilical region which may represent regional cellulitis with small fluid collection or subcutaneous lesion such as sebaceous cyst, measuring about 16 by 10 mm, slightly increased since prior exam. No soft tissue gas or ventral/inguinal hernia. Clinical correlation is needed. There is also minimal diffuse subcutaneous soft tissue haziness which may be related to 3rd spacing/anasarca, new since prior exam. CT/CT abdomen pelvis w con* [id number] IMPRESSION: 1. Soft tissue abnormalities. See discussion above. 2. Other nonacute findings as described.
[2022-01-18 14:31] LABS: Urine Appearance Clear (CLEAR); Urine Color Yellow (Yellow)
[2022-01-18 14:32] LABS: Bilirubin Urine Neg (Negative); Blood Urine Neg (Negative); Glucose Urine UA 4+ (Normal); Ketones Urine 3+ (Negative); Leukocyte Esterase Urine Negative (Negative); Nitrate Urine Negative (Negative); Protein Urine Neg (Negative); Urobilinogen Urine Norm (Negative); pH Urine 5 (5-7)
[2022-01-18] MEDS: insulin regular-human 250 UNIT in sodium chloride 0.9% 250 ML 7 UNIT IV (14:34)
[2022-01-18] MEDS: lidocaine 1% 5 ML in potassium chloride premix 100 ML 25 ML IV ×2 (14:35→23:58)
[2022-01-18 14:39] LABS: Glucose Point of Care 304 mg/dL (70-110)
--- NOTE | 2022-01-18 14:45 | P.HP_ITS ---
Providers/Chief Complaint Primary Care Provider: Loli Diaz APN Chief Complaint: HYPERGLYCEMIA History of Present Illness Max Duggan is a 21 year old male with past medical history of type 1 diabetes mellitus, noncompliance presented to the ER today because of abdominal pain, nausea, vomiting. After the patient has not been able to take long-acting insulin recently. At home he checked his blood sugar glucose elevated so he pre sented to the ER. In the ER he was found to have high blood sugars along with an high anion gap metabolic acidosis so hospitalist team was asked for admission for DKA. Patient himself denies any diarrhea, dysuria, fever, chills, runny nose, cough. He states he did not take his regular and Lantus for last 2 days. During this time he did not go up on his dose of slow acting insulin. Review of Systems General: Reports: 10 or more systems reviewed and unremarkable except in HPI and below Const: Denies: fever(s), chills, body aches, change in appetite, change in weight, malaise, night sweats, diaphoresis, change in sleep pattern, daytime sleepiness or snoring Eyes: Denies: change in vision, blurry vision, photophobia, eye discomfort or eye discharge ENMT: Denies: throat pain, enlarged tonsils, hoarseness, mouth pain, oral sores, dry mouth, tinnitus, nasal congestion or post nasal drip Card: Denies: chest pain, palpitations, irregular heart rhythm, edema, swelling of feet/ankles, lightheadedness, syncope, pre-syncope, dyspnea on exertion, orthopnea, leg pain with exertion or acrocyanosis Resp: Denies: dyspnea, productive cough, non-productive cough, wheezing, stridor, pain on inspiration, change in phlegm color, hemoptysis or chest congestion GI: Denies: abdominal pain, nausea, vomiting, hematemesis, coffee ground emesi s, dysphagia, heartburn, diarrhea, constipation, bloating, GI cramping, change in bowel habits, pain on defecation, hematochezia or melena : Denies: flank pain, difficulty urinating, dysuria, urinary frequency, urinary urgency, urinary hesitancy, urinary dribbling, difficulty starting urination, change in urine stream, nocturia or hematuria Musc: Denies: neck pain, back pain, extremity pain, joint pain, joint swelling, joint redness, joint stiffness or limited range of motion Neuro: Denies: headache(s), numbness in extremities, weakness in extremities, sensory changes, lack of coordination, difficulty walking, frequent falls, dizziness, vertigo, confusion, Slurred speech present, difficulty communicating thoughts or seizure-like activity Psych: Denies: anxiety, depression, mood swings, panic attacks, hopelessness or irritability Endo: Denies: polyuria, polydipsia, tired all the time, cold intolerance, excessive sweating, flushing or heat intolerance Jim/Lymph: Denies: easy bruising or easy bleeding All/Imm: Denies: tongue swelling, facial swelling or acute wheezing Medications/Allergies Home Medications Medication Instructions Recorded Confirmed Last Taken Type insulin aspart U-100 100 unit/mL See Rx Instructions .Route .COMPLEX 06/17/19 01/18/22 01/18/22 History (3 mL) subcutaneous pen (Novolog 12 units Flexpen U-100 Insulin aspart) insulin glargine 100 unit/mL (3 60 unit SUBCUT BEDTIME 03/05/20 01/18/22 01/17/22 History mL) subcutaneous pen (Basaglar KwikPen U-100 Insulin) ibuprofen 200 mg tablet 400 mg PO Q4H PRN Pain 02/10/21 01/18/22 02/10/21 09:00 History blood-glucose meter,continuous #1 ea 02/13/21 01/18/22 Unknown Rx (Dexcom G6 Spinner Box) blood-glucose sensor (Dexcom G6 #3 ea 02/13/21 01/18/22 Unknown Rx Sensor) blood-glucose transmitter (Dexcom #1 ea 02/13/21 01/18/22 Unknown Rx G6 Transmitter) Allergies Allergy/AdvReac Type Severity Reaction Status Date / Time No Known Allergies Allergy Verified 06/03/21 09:33 PFSH Acute PFSH: Medical History (Updated 01/18/22 @ 15:59 by Denis Rodriguez MD) Depression Diabetes DKA (diabetic ketoacidoses) Non-compliance Type 1 diabetes mellitus Surgical History History of dental surgery Family History Father No problems noted. Mother No problems noted. Other CAD (coronary artery disease) Social History Smoking and tobacco status: never smoked Alcohol intake: never Housing: House Vitals/I&O/Wt Last Vital Signs Temp 97.9 F 01/18/22 13:01 Pulse 107 H 01/18/22 13:01 Resp 18 01/18/22 13:01 BP 121/76 01/18/22 13:01 Pulse Ox 97 01/18/22 13:01 O2 Del Method 01/18/22 13:01 01/17/22 01/18/22 01/18/22 22:59 06:59 14:59 Intake Total 1000 / 1000 Balance 1000 / 1000 Weight last 48 hrs Weight 65.771 kg Physical Exam Narrative: General: No acute distress, AO x3, dehydrated HEENT: PERRLA, pupils bilaterally equal and reactive Chest:B/l NVBS, No added sounds CVS: S1-S2 regular, no murmurs, no tachycardia, no gallops, no rubs, small indurated area around periumbilical region, no warmth, no open wounds Abdomen: Soft, mild generalized tenderness, no organomegaly, bowel sounds present, Neuro: No focal deficits, no facial deformity, AO x3, power 5/5 in all limbs Data : 01/18/22 13:17 01/18/22 13:17 Other Labs: Radiology Impressions Abdomen/Pelvis CT 01/18/22 14:30 IMPRESSION: 1. Soft tissue abnormalities. See discussion above. 2. Other nonacute findings as described. Laboratory Results WBC 8.9 10^3/uL (4.0-10.0) 01/18/22 13:17 RBC 5.28 10^6/uL (4.1-5.3) 01/18/22 13:17 Hgb 16.1 g/dL (11.7-16.6) 01/18/22 13:17 Hct 45.8 % (42.0-52.0) 01/18/22 13:17 MCV 86.7 fl (80-94) 01/18/22 13:17 MCH 30.5 pg (28.0-34.0) 01/18/22 13:17 MCHC 35.2 g/dL (30.0-36.0) 01/18/22 13:17 RDW 11.2 % (12.1-15.1) L 01/18/22 13:17 Plt Count 318 10^3/cmm (130-400) 01/18/22 13:17 MPV 9.6 fL (7.4-10.4) 01/18/22 13:17 Neut % (Auto) 75.5 % 01/18/22 13:17 Lymph % (Auto) 18.9 % 01/18/22 13:17 Evangeline % (Auto) 2.5 % 01/18/22 13:17 Eos % (Auto) 0.6 % 01/18/22 13:17 Baso % (Auto) 0.6 % 01/18/22 13:17 Neut # (Auto) 6.69 10^3/uL (1.8-7.7) 01/18/22 13:17 Lymph # (Auto) 1.7 10^3/uL (0.8-4.8) 01/18/22 13:17 Evangeline # (Auto) 0.2 10^3/uL (0.2-0.9) 01/18/22 13:17 Eos # (Auto) 0.1 10^3/uL (0.0-0.8) 01/18/22 13:17 Baso # (Auto) 0.1 10^3/uL (0.0-0.1) 01/18/22 13:17 Nucleated RBC % (auto) 0 % 01/18/22 13:17 Nucleated RBCs # 0.0 /100WBC 01/18/22 13:17 Specimen Type Arterial 01/18/22 13:04 Sample Site Radial, left 01/18/22 13:04 ABG pH 7.22 (7.35-7.45) L 01/18/22 13:04 ABG pCO2 27.3 mmHg (35-45) L 01/18/22 13:04 ABG pO2 108.0 mmHg (80.0-100.0) H 01/18/22 13:04 ABG HCO3 11.3 mmol/L (22-26) L 01/18/22 13:04 ABG O2 Saturation 98.2 01/18/22 13:04 ABG Base Excess -14.7 mmol/L (-2.0-2.0) L 01/18/22 13:04 Tong Test Pos 01/18/22 13:04 A-a O2 Gradient 0.8 mmHg (5-10) L 01/18/22 13:04 Hematocrit 48.8 % (42-52) 01/18/22 13:04 Hgb O2 Saturation 96.2 % (95-100) 01/18/22 13:04 Carboxyhemoglobin 1.4 %THgb (0.4-20.1) 01/18/22 13:04 Methemoglobin 0.6 % (0.4-1.5) 01/18/22 13:04 Total Hemoglobin 15.9 g/dL (14-18) 01/18/22 13:04 Sodium 135.0 mmol/L (131-143) 01/18/22 13:04 Potassium 4.1 mmol/L (3.5-5.0) 01/18/22 13:04 Glucose 419.0 mg/dL (70-115) H 01/18/22 13:04 Ionized Calcium 1.3 mmol/L (1.1-1.4) 01/18/22 13:04 O2 Delivery Device Room air 01/18/22 13:04 FiO2 21.0 % 01/18/22 13:04 Water Quality Specialist ID Cak 01/18/22 13:04 Sodium 133 mmol/L (136-145) L 01/18/22 13:17 Potassium 4.2 mmol/L (3.5-5.1) 01/18/22 13:17 Chloride 91 mmol/L (98-107) L 01/18/22 13:17 Carbon Dioxide 14 mmol/L (22-29) L 01/18/22 13:17 Anion Gap 32.2 (5-19) H 01/18/22 13:17 BUN 19 mg/dL (6-20) 01/18/22 13:17 Creatinine 0.9 mg/dL (0.7-1.2) 01/18/22 13:17 GFR Calculation 106.5 mL/min (90-130) 01/18/22 13:17 Glucose 432 mg/dL (65-115) H 01/18/22 13:17 POC Glucose 304 mg/dL (70-110) H 01/18/22 14:32 Calculated Osmolality 297 mOsm/kg (285-295) H 01/18/22 13:17 Calcium 9.1 mg/dL (8.5-10.5) 01/18/22 13:17 Total Bilirubin 0.4 mg/dL (0.15-1.2) 01/18/22 13:17 AST 15 U/L (0-40) 01/18/22 13:17 ALT 19 U/L (0-41) 01/18/22 13:17 Alkaline Phosphatase 168 IU/L (40-130) H 01/18/22 13:17 Total Protein 7.3 g/dL (6.6-8.7) 01/18/22 13:17 Albumin 4.4 g/dL (3.5-5.2) 01/18/22 13:17 Globulin 2.9 g/dL (1.3-4.6) 01/18/22 13:17 Lipase 55 U/L (13-60) 01/18/22 13:17 TSH 1.09 uIU/mL (0.27-4.20) 01/18/22 13:25 Urine Color Yellow (Yellow) 01/18/22 14:00 Urine Appearance Clear (CLEAR) 01/18/22 14:00 Urine pH 5 (5-7) 01/18/22 14:00 Ur Specific [place] 1.020 (1.005-1.030) 01/18/22 14:00 Urine Protein Neg (Negative) 01/18/22 14:00 Urine Glucose (UA) 4+ (Normal) H 01/18/22 14:00 Urine Ketones 3+ (Negative) H 01/18/22 14:00 Urine Blood Neg (Negative) 01/18/22 14:00 Urine Nitrate Negative (Negative) 01/18/22 14:00 Urine Bilirubin Neg (Negative) 01/18/22 14:00 Urine Urobilinogen Norm mg/dL (Negative) 01/18/22 14:00 Ur Leukocyte Esterase Negative (Negative) 01/18/22 14:00 Serum Ketones Positive (Negative) H 01/18/22 13:17 A&P Assessment and plan (1) DKA (diabetic ketoacidosis): Insulin as per DKA protocol. Check BMP every 6 hours to monitor potassium. Keep potassium around 4. Add potassium accordingly Normal saline at 75 cc/h. If blood sugars less than 200 we will switch to D5 NS. Most likely secondary noncompliance. Sepsis or infectious process less likely. Patient does have indurated area periumbilical region most likely from giving insulin regularly. Less likely cellulitis. Check blood cultures. Hold off on antibiotics for now. Status: Acute (2) Uncontrolled type 1 diabetes mellitus: Check A1c, lipid panel. Once anion gap is closed we will switch to home dose of Lantus insulin sliding scale. Status: Acute (3) Long-term insulin use: Status: Acute (4) Non-compliance: Follow-up of with Dr. Garcia as an outpatient. Status: Acute (5) High anion gap metabolic acidosis: Status: Acute Plan Analgesia: Tylenol Glycemic control: Insulin drip Nutrition: N.p.o. CODE STATUS: Full code PUD prophylaxis: Protonix DVT prophylaxis: Heparin 5000 Discharge planning: Home with caregiver Admit to ICU This documentation was created by [employer] electrical electronics engineers software. Every effort was made to ensure accuracy of electrical electronics engineers. Any obvious errors or omissions should be clarified with the author of the document. Attestations Medical Necessity Statement*: Admission for more than 2 midnights for management of high anion gap metabolic acidosis secondary to DKA Critical Care Time: The high probability of a clinically significant, sudden or life threatening deterioration of the patient's [endocrine] system(s) required my full and direct attention, intervention and personal management. The critical care time is as shown. This time is in addition to time spent performing any reported procedures but includes the following: [x] Data and vital sign review and interpretation [x] Patient assessment, examination and intervention [x] Documentation [x] Medication orders and management Critical Care Time (min): 50 Coding Level of Care Code Acute [facility] for [facility] Medical Decision Making High Complexity Diagnoses DKA (diabetic ketoacidosis) E11.10 Uncontrolled type 1 diabetes mellitus E10.65 Long-term insulin use Z79.4 Non-compliance Z91.19 High anion gap metabolic acidosis E87.2
[2022-01-18 15:02] LABS: Ketone (Acetest) Serum Positive (Negative)
[2022-01-18] MEDS: iohexol 350 mg/mL 100 mL Btl IV (15:04)
[2022-01-18 15:34] LABS: Thyroid Stimulating Hormone 1.09 uIU/mL (0.27-4.20)
--- NOTE | 2022-01-18 16:25 | PC.NURSE ---
Addendum entered by Maritza Rajput RN 01/18/22 19:58: K-ulices infusing Original Note: Pt arrives to ICU from ED. Insulin gtt infusing. Pt alert and oriented. NO nausea/vomiting or diarrhea since coming to hospital per pageant. .
[2022-01-18] MEDS: sodium chloride 0.9% 1,000 ML 75 ML IV (16:29)
[2022-01-18 16:31] LABS: Procalcitonin 0.11 ng/mL (0-0.5); Thyroid Stimulating Hormone 1.03 uIU/mL (0.27-4.20)
[2022-01-18] MEDS: heparin 5,000 unit/mL INJ 1 mL 5000 UNIT SUBCUT (16:36)
[2022-01-18 16:42] LABS: Iron 82 ug/dL (59-158); Percent Saturation 35.1 % (20-50); Total Iron Binding Capacity 233 mcg/dl; Unsaturated Iron Binding 151 ug/dL (112-347)
[2022-01-18] MEDS: dextrose 5%-sod chloride 0.9% 1,000 ML 75 ML IV (17:49)
--- NOTE | 2022-01-18 19:00 | PC.NURSE ---
Bedside report completed with Anju Oconnor RN
--- NOTE | 2022-01-18 19:53 | PC.NURSE ---
Shift Note: no complaints of nausea/vomiting in ICU. NO complaints of pain or other discomforts. Blood sugars improving, 166 at end of shift. D5NS started. Pt has not urinated this shift in ICU. Mother at bedside,at admission, food from [employer] with her. Pt and mother informed of NPO status. Mother stated the food was hers, however upon leaving for the night the food and drink was left on bedside table near patient. This nurse did not observe patient eating or drinking. Food/drink placed elsewhere in room. Frequent safety and comfort rounds continue. Orders and/or nursing care completed as indicated. Patient monitored for response to intervention and treatment(s). Education provided includes blood sugar, insulin, potassium infusion, docusate sodium, and heparin. Patient and/or patient financial representative verbalized understanding of plan of care and medications. Will continue to monitor.
[2022-01-18 23:16] LABS: Anion Gap 14.7 (5-19); Blood Urea Nitrogen 15 mg/dL (6-20); Calcium 8.2 mg/dL (8.5-10.5); Carbon Dioxide 24 mmol/L (22-29); Chloride 101 mmol/L (98-107); Glomerular Filtration Rate 142.4 mL/min (90-130); Glucose 123 mg/dL (65-115); Osmolality Calculated 284 mOsm/kg (285-295); Potassium 3.7 mmol/L (3.5-5.1); Sodium 136 mmol/L (136-145)
[2022-01-19] VITALS (56 sets, daily range): BP systolic 88–137; BP diastolic 44–91; PULSE 68–106; RESP 12–26; TEMP 36.6–36.9; O2SAT 86–99
[2022-01-19] MEDS: insulin glargine 100 units/1 mL 30 UNIT SUBCUT ×2 (00:19→10:09)
[2022-01-19] MEDS: ondansetron 2 mg/ML SDV 2 mL 4 MG IVP (02:50)
[2022-01-19] MEDS: heparin 5,000 unit/mL INJ 1 mL 5000 UNIT SUBCUT (02:50)
--- NOTE | 2022-01-19 02:56 | PC.NURSE ---
Patient having trouble sleeping due to nausea and being nervous. Gave him zofran for nausea and gave his heparin shot early so that if he goes to sleep he does not need to be woke up in hour. No complaints of pain at this time.
[2022-01-19 04:33] LABS: Basophils % 0.4 %; Eosinophils # 0.1 10^3/uL (0.0-0.8); Eosinophils % 0.8 %; Hematocrit 36.6 % (42.0-52.0); Hemoglobin 13.1 g/dL (11.7-16.6); Lymphocytes # 3.2 10^3/uL (0.8-4.8); Lymphocytes % 43.5 %; Mean Corpuscular HGB Conc 35.8 g/dL (30.0-36.0); Mean Corpuscular Hemoglobin 30.8 pg (28.0-34.0); Mean Corpuscular Volume 86.1 fl (80-94); Mean Platelet Volume 9.5 fL (7.4-10.4); Monocytes # 0.5 10^3/uL (0.2-0.9); Monocytes % 6.4 %; Neutrophils # 3.59 10^3/uL (1.8-7.7); Neutrophils % 48.2 %; Nucleated Red Blood Cells % 0 %; Platelet Count 262 10^3/cmm (130-400); Red Blood Count 4.25 10^6/uL (4.1-5.3); Red Cell Distribution Width 11.4 % (12.1-15.1); White Blood Count 7.5 10^3/uL (4.0-10.0)
[2022-01-19 04:52] LABS: Estmated Average Glucose 298
[2022-01-19 04:59] LABS: Alanine Aminotransferase 12 U/L (0-41); Albumin Level 3.6 g/dL (3.5-5.2); Alkaline Phosphatase 87 IU/L (40-130); Anion Gap 16.2 (5-19); Aspartate Amino Transferase 11 U/L (0-40); Blood Urea Nitrogen 16 mg/dL (6-20); Calcium 8.2 mg/dL (8.5-10.5); Carbon Dioxide 23 mmol/L (22-29); Chloride 99 mmol/L (98-107); Chol HDL Ratio 2.74 mg/dL (1.0-5.00); Cholesterol 96 mg/dL (0-200); Glomerular Filtration Rate 142.4 mL/min (90-130); Glucose 275 mg/dL (65-115); HDL Cholesterol 35 mg/dL (60-100); LDL Cholesterol Calculated 35 mg/dL (50-129); Osmolality Calculated 289 mOsm/kg (285-295); Potassium 4.2 mmol/L (3.5-5.1); Sodium 134 mmol/L (136-145); Total Bilirubin 0.4 mg/dL (0.15-1.2); Total Protein 5.6 g/dL (6.6-8.7); Triglycerides 131 mg/dL (0-150); VLDL Cholestrol Calculation 26 mg/dL (0-30)
[2022-01-19 07:44] LABS: Glucose Point of Care 133 mg/dL (70-110)
[2022-01-19 07:44] LABS: Glucose Point of Care 166 mg/dL (70-110)
[2022-01-19 07:44] LABS: Glucose Point of Care 131 mg/dL (70-110)
[2022-01-19 07:44] LABS: Glucose Point of Care 144 mg/dL (70-110)
[2022-01-19 07:44] LABS: Glucose Point of Care 138 mg/dL (70-110)
[2022-01-19 07:44] LABS: Glucose Point of Care 170 mg/dL (70-110)
[2022-01-19 07:44] LABS: Glucose Point of Care 226 mg/dL (70-110)
[2022-01-19 07:51] LABS: Glucose Point of Care 168 mg/dL (70-110)
[2022-01-19 08:23] LABS: Glucose Point of Care 121 mg/dL (70-110)
--- NOTE | 2022-01-19 08:28 | PC.NURSE ---
Bedside report given by Anju LANGE, Insulin/dextrose stopped at 0100 per protocol. Patient BG this am prior to breakfast is 121, humalog not indicated per sliding scale. 300 urine documented this am. Bedside report stated patient would be DC post morning meal.
[2022-01-19 10:04] LABS: Glucose Point of Care 130 mg/dL (70-110)
[2022-01-19] MEDS: ondansetron 4 MG Tablet PO (10:05)
[2022-01-19 10:27] LABS: Anion Gap 15.8 (5-19); Blood Urea Nitrogen 13 mg/dL (6-20); Calcium 8.5 mg/dL (8.5-10.5); Carbon Dioxide 24 mmol/L (22-29); Chloride 100 mmol/L (98-107); Glomerular Filtration Rate 170.1 mL/min (90-130); Glucose 128 mg/dL (65-115); Osmolality Calculated 284 mOsm/kg (285-295); Potassium 3.8 mmol/L (3.5-5.1); Sodium 136 mmol/L (136-145)
[2022-01-19] MEDS: escitalopram 10 mg Tablet PO (11:25)
[2022-01-19 11:30] LABS: Glucose Point of Care 180 mg/dL (70-110)
[2022-01-19] MEDS: insulin lispro 100 unit/1 mL SUBCUT (11:56)
--- NOTE | 2022-01-19 12:48 | PC.NURSE ---
Visited with Patient this AM in regards to disease process and current hospitalization. Patient stated that he had attempted to set up appointment for counseling but was told it would be 8months before they could see him. Patient stated that he believed his depression was affecting his diabetic care. Some mornings I do not want to get out of bed . He admitted that he also was not testing on a regular basis and often guessed at his insulin dose or relied only on long acting. Spoke with patient in regards to coping mechanisms and support groups. Dr. Thomas was notified and prescribed order for 10mg Lexapro. Patient was printed med information and given instructions on medication use and Adverse side effects. Patient was instructed to discuss further with primary care provider to set up referral for counseling. Follow up with clinical investigator to be scheduled prior to discharge.
--- NOTE | 2022-01-19 17:55 | P.DS_ITS ---
Discharge Providers Date of Admission: 01/18/22 16:19 Date of Discharge: January 19, 2022 Attending Provider at Admission: Denis Rodriguez MD Attending Provider at Discharge: Pb Thomas DO Primary Care Provider: Loli Diaz APN Diagnoses at Discharge Discharge Diagnosis (1) DKA (diabetic ketoacidosis): Details from hospital stay: Patient was admitted short-term for the treatment of DKA with IV fluids and electrolyte replacement and insulin drip. Patient responded well and his acidosis and ketosis resolved quickly. Status: Acute (2) Uncontrolled type 1 diabetes mellitus: Details from hospital stay: Patient has been type I diabetic since the age of 6. He says he is have difficulty seeing an interior surface insulation worker due to insurance. I spoke with case management to obtain an endocrinology follow-up. This was able to be done. Patient talked with a staff member with type 1 diabetes and was able to relate. He also met with dietitian regarding an appropriate diet for him. Status: Acute (3) Long-term insulin use: Details from hospital stay: We will break up his long-acting insulin to 30 units subcu twice daily and he is to continue his sliding scale insulin. Status: Acute (4) Non-compliance: Details from hospital stay: He states that he sometimes does not take insulin because he feels horrible and feels nauseous all the time. I explained that this could be a consequence of not taking his insulin and were hoping to find a balance. Prescribe Zofran on discharge so that he could take prior to eating. I also think noncompliance comes from some underlying depression. Status: Acute (5) Depression: Details from hospital stay: Patient appears depressed he states that he is lost 150 pounds in the past year and a half. I recommended we start him on Lexapro 10 mg every morning I advised patient to find a support group via social media for type I diabetics. I know that he struggles with his condition at his young age. Status: Acute Qualifiers: Depression Type: major depressive disorder Major depression recurrence: recurrent Active/Remission status: currently active Major depression episode severity: mild Qualified Code(s): F33.0 - Major depressive disorder, recurrent, mild Reason for Visit Reason for Visit: HYPERGLYCEMIA Brief History: See H&P Hospital Course Hospital Course Patient was admitted in DKA patient was started on IV fluids IV insulin and electrolyte replacement. Patient normalized quickly and was placed on his long- acting insulin and sliding scale. As above it was found that the patient is likely depressed contributing to not taking his insulin. He also feels nauseous and not well most of the time which ironically may be due to chronic hyperglycemia. I asked the patient to try Zofran prior to a meal to start improving his diet. He was started on Lexapro due to probable depression which she carries that diagnosis. Also advised patient to receive counseling. Lastly I suspect that there are many online venues for patient to find young type I diabetics and use as a resource. Physical Exam Narrative: Young white male thin no acute distress appears depressed Neuro alert and oriented focal deficit heart regular normal S1-S2 without murmurs clicks gallops or rubs lungs clear to auscultation without wheezes rales or rhonchi abdomen soft nontender nondistended positive bowel sounds I do appreciate some fullness to adjacent areas of his umbilicus due to repetitive insulin injection. Extremities no clubbing cyanosis or edema Discharge Data Studies Completed and Pending Completed Studies During Hospitalization Category Date Time Status CT abdomen pelvis w con* [id number] Stat Cat Scan 01/18/22 14:30 Completed Pending at discharge Category Date Time Status Blood Culture Stat Lab 01/18/22 16:20 Results Radiology Impressions Abdomen/Pelvis CT 01/18/22 14:30 IMPRESSION: 1. Soft tissue abnormalities. See discussion above. 2. Other nonacute findings as described. Laboratory Results WBC 7.5 10^3/uL (4.0-10.0) 01/19/22 03:18 RBC 4.25 10^6/uL (4.1-5.3) 01/19/22 03:18 Hgb 13.1 g/dL (11.7-16.6) 01/19/22 03:18 Hct 36.6 % (42.0-52.0) L 01/19/22 03:18 MCV 86.1 fl (80-94) 01/19/22 03:18 MCH 30.8 pg (28.0-34.0) 01/19/22 03:18 MCHC 35.8 g/dL (30.0-36.0) 01/19/22 03:18 RDW 11.4 % (12.1-15.1) L 01/19/22 03:18 Plt Count 262 10^3/cmm (130-400) 01/19/22 03:18 MPV 9.5 fL (7.4-10.4) 01/19/22 03:18 Neut % (Auto) 48.2 % 01/19/22 03:18 Lymph % (Auto) 43.5 % 01/19/22 03:18 [place] % (Auto) 6.4 % 01/19/22 03:18 Eos % (Auto) 0.8 % 01/19/22 03:18 Baso % (Auto) 0.4 % 01/19/22 03:18 Neut # (Auto) 3.59 10^3/uL (1.8-7.7) 01/19/22 03:18 Lymph # (Auto) 3.2 10^3/uL (0.8-4.8) 01/19/22 03:18 [place] # (Auto) 0.5 10^3/uL (0.2-0.9) 01/19/22 03:18 Eos # (Auto) 0.1 10^3/uL (0.0-0.8) 01/19/22 03:18 Baso # (Auto) 0.0 10^3/uL (0.0-0.1) 01/19/22 03:18 Nucleated RBC % (auto) 0 % 01/19/22 03:18 Nucleated RBCs # 0.0 /100WBC 01/19/22 03:18 Specimen Type Arterial 01/18/22 13:04 Sample Site Radial, left 01/18/22 13:04 ABG pH 7.22 (7.35-7.45) L 01/18/22 13:04 ABG pCO2 27.3 mmHg (35-45) L 01/18/22 13:04 ABG pO2 108.0 mmHg (80.0-100.0) H 01/18/22 13:04 ABG HCO3 11.3 mmol/L (22-26) L 01/18/22 13:04 ABG O2 Saturation 98.2 01/18/22 13:04 ABG Base Excess -14.7 mmol/L (-2.0-2.0) L 01/18/22 13:04 Tong Test Pos 01/18/22 13:04 A-a O2 Gradient 0.8 mmHg (5-10) L 01/18/22 13:04 Hematocrit 48.8 % (42-52) 01/18/22 13:04 Hgb O2 Saturation 96.2 % (95-100) 01/18/22 13:04 Carboxyhemoglobin 1.4 %THgb (0.4-20.1) 01/18/22 13:04 Methemoglobin 0.6 % (0.4-1.5) 01/18/22 13:04 Total Hemoglobin 15.9 g/dL (14-18) 01/18/22 13:04 Sodium 135.0 mmol/L (131-143) 01/18/22 13:04 Potassium 4.1 mmol/L (3.5-5.0) 01/18/22 13:04 Glucose 419.0 mg/dL (70-115) H 01/18/22 13:04 Ionized Calcium 1.3 mmol/L (1.1-1.4) 01/18/22 13:04 O2 Delivery Device Room air 01/18/22 13:04 FiO2 21.0 % 01/18/22 13:04 Flue Tile Press Operator ID Cak 01/18/22 13:04 Sodium 136 mmol/L (136-145) 01/19/22 09:53 Potassium 3.8 mmol/L (3.5-5.1) 01/19/22 09:53 Chloride 100 mmol/L (98-107) 01/19/22 09:53 Carbon Dioxide 24 mmol/L (22-29) 01/19/22 09:53 Anion Gap 15.8 (5-19) 01/19/22 09:53 BUN 13 mg/dL (6-20) 01/19/22 09:53 Creatinine 0.6 mg/dL (0.7-1.2) L 01/19/22 09:53 GFR Calculation 170.1 mL/min (90-130) H 01/19/22 09:53 Glucose 128 mg/dL (65-115) H 01/19/22 09:53 POC Glucose 180 mg/dL (70-110) H 01/19/22 11:23 Estimat Average Glucose 298 01/19/22 03:18 Hemoglobin A1c 12.0 % (4.0-6.0) H 01/19/22 03:18 Calculated Osmolality 284 mOsm/kg (285-295) L 01/19/22 09:53 Calcium 8.5 mg/dL (8.5-10.5) 01/19/22 09:53 Iron 82 ug/dL (59-158) 01/18/22 13:17 TIBC 233 mcg/dl 01/18/22 13:17 % Saturation 35.1 % (20-50) 01/18/22 13:17 Unsat Iron Binding 151 ug/dL (112-347) 01/18/22 13:17 Total Bilirubin 0.4 mg/dL (0.15-1.2) 01/19/22 03:18 AST 11 U/L (0-40) 01/19/22 03:18 ALT 12 U/L (0-41) 01/19/22 03:18 Alkaline Phosphatase 87 IU/L (40-130) 01/19/22 03:18 Total Protein 5.6 g/dL (6.6-8.7) L D 01/19/22 03:18 Albumin 3.6 g/dL (3.5-5.2) 01/19/22 03:18 Globulin 2.0 g/dL (1.3-4.6) 01/19/22 03:18 Triglycerides 131 mg/dL (0-150) 01/19/22 03:18 Cholesterol 96 mg/dL (0-200) 01/19/22 03:18 LDL Cholesterol, Calc 35 mg/dL (50-129) L 01/19/22 03:18 Total VLDL Cholesterol 26 mg/dL (0-30) 01/19/22 03:18 HDL Cholesterol 35 mg/dL (60-100) L 01/19/22 03:18 Cholesterol/HDL Ratio 2.74 mg/dL (1.0-5.00) 01/19/22 03:18 Lipase 55 U/L (13-60) 01/18/22 13:17 Procalcitonin 0.11 ng/mL (0-0.5) 01/18/22 13:17 TSH 1.09 uIU/mL (0.27-4.20) 01/18/22 13:25 Urine Color Yellow (Yellow) 01/18/22 14:00 Urine Appearance Clear (CLEAR) 01/18/22 14:00 Urine pH 5 (5-7) 01/18/22 14:00 Ur Specific [place] 1.020 (1.005-1.030) 01/18/22 14:00 Urine Protein Neg (Negative) 01/18/22 14:00 Urine Glucose (UA) 4+ (Normal) H 01/18/22 14:00 Urine Ketones 3+ (Negative) H 01/18/22 14:00 Urine Blood Neg (Negative) 01/18/22 14:00 Urine Nitrate Negative (Negative) 01/18/22 14:00 Urine Bilirubin Neg (Negative) 01/18/22 14:00 Urine Urobilinogen Norm mg/dL (Negative) 01/18/22 14:00 Ur Leukocyte Esterase Negative (Negative) 01/18/22 14:00 Serum Ketones Positive (Negative) H 01/18/22 13:17 Vitals Last Vital Signs Temp 98.2 F 01/19/22 15:04 Pulse 85 01/19/22 15:04 Resp 16 01/19/22 15:04 BP 127/85 01/19/22 15:04 Pulse Ox 97 01/19/22 13:00 O2 Del Method 01/19/22 13:55 Discharge Plan Discharge Patient Disposition: Home Condition: Stable Prescriptions: New ondansetron HCl 4 mg Tablet 4 mg PO Q6H PRN (Reason: Nausea And Vomiting) Qty: 30 0RF escitalopram oxalate 10 mg Tablet 10 mg PO DAILY Qty: 30 0RF Continued (DME) Dexcom G6 Insurance Salesman Misc See Rx Instructions .Route Qty: 1 0RF Rx Instructions: As directed (DME) Dexcom G6 Sensor Device See Rx Instructions .Route Qty: 3 3RF Rx Instructions: As directed (DME) Dexcom G6 Transmitter Device See Rx Instructions .Route Qty: 1 3RF Rx Instructions: As directed insulin aspart U-100 [Novolog Flexpen U-100 Insulin] 100 unit/mL (3 mL) Insulin Pen See Rx Instructions .ROUTE .COMPLEX Rx Instructions: inject 2 units subcutaneously per one gram of carbs tid WITH MEALS AND BLOOD SUGAR CORRECTION UP TO 60 UNITS PER DAY ibuprofen 200 mg Tablet 400 mg PO Q4H PRN (Reason: Pain) Changed Basaglar KwikPen U-100 Insulin 100 unit/mL (3 mL) insulin pen 30 unit SUBCUT BID Qty: 1 0RF Discharge Orders: Discharge Order (Routine); Ordered 01/19/22 Ordered By: Pb Thomas Referrals: Jenn Garcia MD [Physician] - 02/03/22 2:45 pm Diaz,ELIZABETH Ennis [Primary Care Provider] - Discharge Diet: Advance as tolerated Discharge Activity: Increase activity as tolerated Patient Instructions: Ondansetron (By mouth) (Zofran, Zofran ODT, Zuplenz), Escitalopram (By mouth) (Lexapro), Diabetic Ketoacidosis (DC), Diabetes Type 1: Management (DC) Discharge Attestations Time Spent in Discharge Care*: greater than 30 min Quality Metrics Clinical Quality Measures [ No reported AMI, CVA or VTE this stay] Coding Level of Care Code Acute Chg FW DC note Diagnoses DKA (diabetic ketoacidosis) E11.10 Uncontrolled type 1 diabetes mellitus E10.65 Long-term insulin use Z79.4 Non-compliance Z91.19 Depression F33.0 Depression Type: major depressive disorder Major depression recurrence: recurrent Active/Remission status: currently active Major depression episode severity: mild
== END 2022-01-19 15:25 | disposition home or self-care (01) | DRG 638 ==
LOC: ER 13:02 → ICU 21:53
PROVIDERS: Admitting Provider Student in an Organized Health Care Education/Training Program; Emergency Provider Emergency Medicine; PCP Nurse Practitioner Family; Visit Provider Internal Medicine
DX: E10.10 Type 1 diabetes mellitus with ketoacidosis without coma (principal); F33.0 Major depressive disorder, recurrent, mild; T38.3X6A Underdosing of insulin and oral hypoglycemic [antidiabetic] drugs, initial encounter; Z91.128 Patient's intentional underdosing of medication regimen for other reason
CPT/HCPCS: 36415; 36416; 36600; 74177; 80048; 80051; 80053; 80061; 81003; 82009; 82330; 82805; 82962; 83036; 83540; 83550; 83690; 84145; 84443; 85025; 87040; 93005; 94664; 96365; 96367; 96372; 99285; J1644; J1815; J2405; J3480; J7030; J7050; Q0162; Q9967

== ENCOUNTER 2022-06-07 09:46 | Inpatient (IN) | payer OTHER, MEDICAID, SELFPAY ==
[2022-06-07] VITALS (76 sets, daily range): BP systolic 89–135; BP diastolic 41–85; PULSE 75–149; RESP 3–32; TEMP 36.4–37.1; O2SAT 89–100; BMI 21.1
[2022-06-07 09:57] LABS: Glucose Point of Care > 600 mg/dL (70-110)
[2022-06-07] MEDS: sodium chloride 0.9% 1,000 ML 999 ML IV (10:11)
[2022-06-07 10:16] LABS: Basophils # 0.1 10^3/uL (0.0-0.1); Basophils % 0.6 %; Eosinophils # 0.1 10^3/uL (0.0-0.8); Eosinophils % 0.6 %; Hematocrit 39.8 % (42.0-52.0); Hemoglobin 13.9 g/dL (11.7-16.6); Lymphocytes # 2.9 10^3/uL (0.8-4.8); Lymphocytes % 24.5 %; Mean Corpuscular HGB Conc 34.9 g/dL (30.0-36.0); Mean Corpuscular Hemoglobin 29.9 pg (28.0-34.0); Mean Corpuscular Volume 85.6 fl (80-94); Mean Platelet Volume 9.1 fL (7.4-10.4); Monocytes # 0.4 10^3/uL (0.2-0.9); Monocytes % 3.1 %; Neutrophils # 8.03 10^3/uL (1.8-7.7); Neutrophils % 68.4 %; Nucleated Red Blood Cells % 0 %; Platelet Count 283 10^3/cmm (130-400); Red Blood Count 4.65 10^6/uL (4.1-5.3); Red Cell Distribution Width 11.5 % (12.1-15.1); White Blood Count 11.8 10^3/uL (4.0-10.0)
--- NOTE | 2022-06-07 10:19 | XRR_ITS ---
PROCEDURE INFORMATION: Exam: XR Chest Exam date and time: 06/07/2022 10:25 AM Age: 22 years old Clinical indication: Dyspnea; Additional info: Dka TECHNIQUE: Imaging protocol: Radiologic exam of the chest. Views: 1 view. COMPARISON: CR XR chest 1V portable [id number] 02/10/2021 4:03 PM FINDINGS: Lungs: Unremarkable. No consolidation. Pleural spaces: Unremarkable. No pleural effusion. No pneumothorax. Heart/Mediastinum: Cardiac silhouette is not enlarged. There is prominence of the right heart border more apparent on the current study raising possibility of right atrial enlargement. Bones/joints: Unremarkable for age. XR/XR chest 1V portable [id number] IMPRESSION: Prominence of the right heart border the more apparent on the current exam raising possibility of right atrial enlargement.
[2022-06-07 10:26] LABS: Blood Gas Allen Test Pos; Blood Gas Operator Identificat MONRO; Blood Gas Sample Type Venous; HCO3 VBG 14.9 mmol/L (24-28); PCO2 VBG 40.2 mmHg (41-51); PO2 VBG 49.8 mmHg (25-40); Venous Blood Gas Hematocrit 44.1 % (42-52)
[2022-06-07 10:28] LABS: pH VBG 7.18 (7.32-7.42)
[2022-06-07 10:29] LABS: Blood Gas Sample Site LAB; Oxygen Device RA
--- NOTE | 2022-06-07 10:33 | ED_ITS ---
HPI - General Adult General: Chief complaint: General Medical Stated complaint: HYPERGLYCEMIA Time Seen by Provider: 06/07/22 09:52 History of Present Illness: 21-year-old male pt presents to ER via EMS with history of type 1 diabetes complicated by DKA per EMS concerns of elevated gl ucose, abdominal pain nausea vomiting.? Patient tells me he took his regular insulin last night but has not taken his novolog in a hot minute.On arrival, patient complains of diffuse abdominal pain nausea vomiting.? Patient deneis any diarrhea cough, runny nose sore throat fever or chills.? In the past, patient is treated for DKA has been secondary to noncompliance.? Associated symptoms: Deny chest pain, confusion, diaphoresis, dyspnea, headache(s), malaise, rash, palpitations or syncope Review of Systems Const: Denies: fever(s), chills, body aches, change in appetite, change in keith ght, fatigue, malaise or diaphoresis Eyes: Denies: change in vision, blurry vision, blind spots, photophobia, eye discomfort, eye discharge, eye redness, floaters or seeing flashes ENMT: Denies: throat pain, uvular edema, enlarged tonsils, odynophagia, hoarseness, mouth pain, swelling of lips/tongue, oral sores, bleeding gums, dental pain, dry mouth, ear or mastoid pain, ear discharge, change in hearing, tinnitus, disequilibrium, nasal discharge, nasal congestion, post nasal drip or sinus pain Card: Denies: chest pain, palpitations, irregular heart rhythm, edema, swelling of feet/ankles, lightheadedness, syncope, pre-syncope, dyspnea on exertion, orthopnea, leg pain with exertion or acrocyanosis Resp: Denies: dyspnea, productive cough, non-productive cough, wheezing, st ridor, pain on inspiration, change in phlegm color, hemoptysis or chest congestion GI: Denies: hematemesis, dysphagia, diarrhea, constipation, GI cramping, change in bowel habits or rectal pain : Denies: flank pain, dysuria, urinary frequency, urinary urgency, urinary hesitancy or hematuria Musc: Denies: neck pain, back pain, extremity pain, extremity swelling, joint pain, joint swelling, joint redness, joint warmth or deformity Skin/Breast: Denies: rash, pruritus, erythema, sores, new lesions, changes in skin color or dry skin Neuro: Denies: headache(s), numbness in extremities, weakness in extremities, sensory changes, lack of coordination, difficulty walking, frequent falls, dizziness, vertigo, confusion, behavioral changes, Slurred speech present, difficulty communicating thoughts or seizure-like activity Psych: Denies: anxiety, depression, suicidal ideation or homicidal ideation Endo: Denies: polyuria, polydipsia, tired all the time, cold intolerance, excessive sweating, flushing, hot flashes or heat intolerance Jim/Lymph: Denies: easy bruising, easy bleeding, petechiae, purpura, enlarged lymph nodes or tender lymph nodes All/Imm: Denies: urticaria, throat swelling, tongue swelling, facial swelling, acute wheezing or itchy eyes PFSH ED PFSH: Medical History Depression Diabetes DKA (diabetic ketoacidoses) DKA (diabetic ketoacidosis) Hyperglycemia Non-compliance Type 1 diabetes mellitus Surgical History History of dental surgery Family History Father No problems noted. Mother No problems noted. Other CAD (coronary artery disease) Social History Smoking and tobacco status: never smoked Alcohol intake: never Housing: House Physical Exam Const: COMMON NORMALS: no acute distress, patient oriented x3, healthy appearing, alert and well nourished GENERAL APPEARANCE: cooperative, comfortable, well kempt and well developed; not ill appearing ORIENTATION/CONSCIOUSNESS: Yes awake, Yes oriented to person, Yes oriented to place and Yes oriented to time HENMT: COMMON NORMALS: normocephalic, atraumatic, hearing grossly normal bilaterally, external ears normal, EAC's normal, TM's normal bilaterally, Normal external nose present, Normal nasal mucous membranes and turbinates present and moist oral mucous membranes HEAD & SCALP: normal to inspection, normocephalic and atraumatic FACE & SINUS: normal facial exam, sinuses nontender and face s ymmetric NOSE: Normal external nose present, Normal nares present, Normal nasal mucous membranes and turbinates present, No nasal discharge present and Abnormal external nose present EXTERNAL EAR: Yes external ears normal and Yes mastoids normal EXTERNAL AUDITORY CANAL: EAC's normal TYMPANIC MEMBRANE: TM's normal bilaterally MOUTH: Normal oral and palatal mucosa present, lip normal, tongue normal and Normal salivary glands and ducts present THROAT: no uvular edema Eye: COMMON NORMALS: Equal, round and reactive pupils present, EOMs intact bilaterally, conjunctivae normal, no scleral icterus and no papilledema GENERAL EYE: appearance normal, both eyes and all related structures EYELID: eyelids normal CONJUNCTIVA: Yes conjunctivae normal SCLERA: sclerae normal CORNEA: Yes corneas normal PUPIL: Yes Equal, round and reactive pupils present DIRECT OPHTHALMOSCOPY: Yes no papilledema Neck/C-Spine: COMMON NORMALS: full ROM, no lymphadenopathy, supple, no meningeal signs, no JVD and Thyroid normal GENERAL: Yes normal visual inspection and Yes trachea midline THYROID: Thyroid normal CERVICAL SPINE: Yes cervical ROM normal Lymph: LYMPHATIC: no lymphadenopathy noted and no lymphedema noted Chest: COMMONS NORMALS: normal inspection of the chest and normal palpation of entire chest wall Resp: COMMON NORMALS: No retractions, No use of accessory muscles and clear to auscultation bilaterally EFFORT & INSPECTION: Yes able to speak in complete sentences and Yes symmetric chest movement AUSCULTATION: clear to auscultation bilaterally Cardio: COMMON NORMALS: no JVD, regular rate and regular rhythm RATE: regular rate RHYTHM: regular rhythm GI: COMMON NORMALS: Normal to inspection, nondistended, normoactive bowel sounds present, Soft to palpation, non-tender, No hepatosplenomegaly present, no masses and no bruits INSPECTION: Yes normal to inspection AUSCULTATION: Yes normoactive bowel sounds PALPATION: Yes Soft to palpation and Yes No hepatosplenomegaly present PERCUSSION: normal to percussion RECTAL EXAM: Yes deferred : COMMON NORMALS: Yes no CVA tenderness BLADDER/KIDNEY EXAM: Yes no CVA tenderness Back/Pelvis: COMMON NORMALS: no CVA tenderness, thoracic and lumbar spine normal to inspection, no thoracic nor lumbar tenderness, thoraco-lumbar ROM normal and straight leg raise negative bilaterally THORACIC SPINE/UPPER BACK: Yes normal to inspection LUMBAR SPINE/LOWER BACK: Yes normal to inspection Extremity: COMMON NORMALS: normal to inspection, full ROM and capillary refill normal GENERAL: Yes normal exam except as noted Neuro: COMMON NORMALS: patient oriented x3, CN's II-XII intact bilaterally, m oves all extremities, no focal motor deficits, no sensory deficits noted, deep tendon reflexes 2+ bilaterally and gait normal SENSORIUM/ORIENTATION: Yes alert, Yes oriented to person, Yes oriented to place and Yes oriented to time MENINGEAL SIGNS: Yes no meningeal signs CRANIAL NERVES: Yes CN normal except as noted SPEECH: speech normal GAIT: Yes Normal gait present SENSORY EXAM: Yes extremities MOTOR EXAM: 5/5 motor strength present throughout Psych: COMMON NORMALS: mental status grossly normal, Normal thought process present, cooperative, normal affect, speech normal, activity/motor behavior normal, denies hallucinations, denies homicidal ideation and denies suicidal ideation APPEARANCE: Yes grossly normal and Yes well kempt ATTITUDE: Yes calm ACTIVITY/MOTOR BEHAVIOR: Yes appropriate eye contact SPEECH: Yes normal speech THOUGHT PROCESS: Normal thought process present THOUGHT CONTENT: Yes Normal thought content present ATTENTION/CONCENTRATION: Yes atte ntion grossly intact MEMORY/COGNITION: Yes memory grossly intact INSIGHT: Good insight present (Psych) JUDGEMENT: Good judgement present (Psych) Skin: COMMON NORMALS: no rashes or lesions noted, no wounds, turgor normal, no jaundice, no petechiae and no mottling GENERAL SKIN EXAM: no rashes or lesions noted and turgor normal Course Vital Signs: Vital signs: Vital Signs Temperature 97.6 F 06/07/22 09:47 Pulse Rate 102 H 06/07/22 10:50 Respiratory Rate 14 06/07/22 10:50 Blood Pressure 94/52 06/07/22 10:50 Pulse Oximetry 99 06/07/22 10:50 Oxygen Delivery Me thod 06/07/22 09:47 MDM - General Adult Medical Decision Making 21-year-old male pt presents to ER via EMS with history of type 1 diabetes complicated by DKA per EMS concerns of elevated glucose, abdominal pain nausea vomiting.? Patient tells me he took his regular insulin last night but has not taken his novolog in a hot minute.On arrival, patient complains of diffuse abdominal pain nausea vomiting.? Patient deneis any diarrhea cough, runny nose sore throat fever or chills.? In the past, patient is treated for DKA has been secondary to noncompliance.? Will check labs, VBG, EKG and chest xray at this time, fluids infusing and zofrn has been given. Based on patients lab findings, he is in DKA. 2nd liter of fluids as well as insulin gtts started. chest xray show possibly atrial enlargement EKG without st elevation or depression. Lipase is elevated. Patient to be admitted to ICU at this time. Lab Data 06/07/22 10:05 06/07/22 10:05 Radiology Impressions Chest X-Ray 06/07/22 10:19 IMPRESSION: Prominence of the right heart border the more apparent on the current exam raising possibility of right atrial enlargement. Laboratory Results WBC 11.8 10^3/uL (4.0-10.0) H 06/07/22 10:05 RBC 4.65 10^6/uL (4.1-5.3) 06/07/22 10:05 Hgb 13.9 g/dL (11.7-16.6) 06/07/22 10:05 Hct 39.8 % (42.0-52.0) L 06/07/22 10:05 MCV 85.6 fl (80-94) 06/07/22 10:05 MCH 29.9 pg (28.0-34.0) 06/07/22 10:05 MCHC 34.9 g/dL (30.0-36.0) 06/07/22 10:05 RDW 11.5 % (12.1-15.1) L 06/07/22 10:05 Plt Count 283 10^3/cmm (130-400) 06/07/22 10:05 MPV 9.1 fL (7.4-10.4) 06/07/22 10:05 Neut % (Auto) 68.4 % 06/07/22 10:05 Lymph % (Auto) 24.5 % 06/07/22 10:05 [place] % (Auto) 3.1 % 06/07/22 10:05 Eos % (Auto) 0.6 % 06/07/22 10:05 Baso % (Auto) 0.6 % 06/07/22 10:05 Neut # (Auto) 8.03 10^3/uL (1.8-7.7) H 06/07/22 10:05 Lymph # (Auto) 2.9 10^3/uL (0.8-4.8) 06/07/22 10:05 [place] # (Auto) 0.4 10^3/uL (0.2-0.9) 06/07/22 10:05 Eos # (Auto) 0.1 10^3/uL (0.0-0.8) 06/07/22 10:05 Baso # (Auto) 0.1 10^3/uL (0.0-0.1) 06/07/22 10:05 Nucleated RBC % (auto) 0 % 06/07/22 10:05 Nucleated RBCs # 0.0 /100WBC 06/07/22 10:05 Specimen Type Venous 06/07/22 10:05 Sample Site Lab 06/07/22 10:05 Tong Test Pos 06/07/22 10:05 VBG pH 7.18 (7.32-7.42) L* 06/07/22 10:05 VBG pCO2 40.2 mmHg (41-51) L 06/07/22 10:05 VBG pO2 49.8 mmHg (25-40) H 06/07/22 10:05 VBG HCO3 14.9 mmol/L (24-28) L 06/07/22 10:05 VBG Base Excess -13.0 mmol/L (-3.0-3.0) L 06/07/22 10:05 VBG Hematocrit 44.1 % (42-52) 06/07/22 10:05 O2 Delivery Device Ra 06/07/22 10:05 Plant Specialist ID Monro 06/07/22 10:05 Sodium 129 mmol/L (136-145) L 06/07/22 10:05 Potassium 4.4 mmol/L (3.5-5.1) 06/07/22 10:05 Chloride 87 mmol/L (98-107) L 06/07/22 10:05 Carbon Dioxide 15 mmol/L (22-29) L 06/07/22 10:05 Anion Gap 31.4 (5-19) H 06/07/22 10:05 BUN 22 mg/dL (6-20) H 06/07/22 10:05 Creatinine 0.9 mg/dL (0.7-1.2) 06/07/22 10:05 GFR Calculation 105.5 mL/min (90-130) 06/07/22 10:05 Glucose 592 mg/dL (65-115) H* 06/07/22 10:05 POC Glucose 516 mg/dL (70-110) H* 06/07/22 12:18 Calculated Osmolality 299 mOsm/kg (285-295) H 06/07/22 10:05 Calcium 9.4 mg/dL (8.5-10.5) 06/07/22 10:05 Magnesium 1.8 mg/dL (1.7-2.3) 06/07/22 10:05 Total Bilirubin 0.5 mg/dL (0.15-1.2) 06/07/22 10:05 AST 21 U/L (0-40) 06/07/22 10:05 ALT 23 U/L (0-41) 06/07/22 10:05 Alkaline Phosphatase 143 U/L (40-130) H 06/07/22 10:05 NT-Pro-B Natriuret Pep 60 pg/mL (0-125) 06/07/22 10:05 Total Protein 6.9 g/dL (6.6-8.7) 06/07/22 10:05 Albumin 4.0 g/dL (3.5-5.2) 06/07/22 10:05 Globulin 2.9 g/dL (1.3-4.6) 06/07/22 10:05 Lipase 101 U/L (13-60) H 06/07/22 10:05 Serum Ketones Positive (Negative) H 06/07/22 10:05 Discharge Plan Discharge Condition: Stable Prescriptions: No Action (DME) Dexcom G6 Freight Agent Misc See Rx Instructions .Route Qty: 1 0RF Rx Instructions: As directed (DME) Dexcom G6 Sensor Device See Rx Instructions .Route Qty: 3 3RF Rx Instructions: As directed (DME) Dexcom G6 Transmitter Device See Rx Instructions .Route Qty: 1 3RF Rx Instructions: As directed (DME) V-GO 40 Device See Rx Instructions .Route Qty: 30 0RF Rx Instructions: As directed Basaglar KwikPen U-100 Insulin 100 unit/mL (3 mL) insulin pen 30 unit SUBCUT BID Qty: 60 3RF insulin aspart U-100 [Novolog Flexpen U-100 Insulin] 100 unit/mL (3 mL) insulin pen See Rx Instructions .ROUTE .COMPLEX Qty: 15 1RF Dose Instruction: INJECT TWO UNITS SUBCUTANEOUSLY PER ONE GRAM CARBS THREE TIMES A DAY WITH MEALS AND BLOOD SUGAR CORRECTION UP TO 60 UNITS PER DAY Rx Instructions: INJECT TWO UNITS SUBCUTANEOUSLY PER ONE GRAM CARBS THREE TIMES A DAY WITH MEALS AND BLOOD SUGAR CORRECTION UP TO 60 UNITS PER DAY escitalopram oxalate 10 mg Tablet 10 mg PO DAILY Qty: 30 0RF Referrals: Loli Diaz APN [Primary Care Provider] - Coding Level of Care Code ED Manager Regulatory for [place] Fwd Exam Comprehensive
[2022-06-07] MEDS: ondansetron 2 mg/ML SDV 2 mL 4 MG IVP (10:52)
[2022-06-07 11:12] LABS: Alanine Aminotransferase 23 U/L (0-41); Alkaline Phosphatase 143 U/L (40-130); Anion Gap 31.4 (5-19); Aspartate Amino Transferase 21 U/L (0-40); Blood Urea Nitrogen 22 mg/dL (6-20); Calcium 9.4 mg/dL (8.5-10.5); Carbon Dioxide 15 mmol/L (22-29); Chloride 87 mmol/L (98-107); Globulin 2.9 g/dL (1.3-4.6); Glomerular Filtration Rate 105.5 mL/min (90-130); Osmolality Calculated 299 mOsm/kg (285-295); Potassium 4.4 mmol/L (3.5-5.1); Sodium 129 mmol/L (136-145); Total Bilirubin 0.5 mg/dL (0.15-1.2); Total Protein 6.9 g/dL (6.6-8.7)
[2022-06-07 11:13] LABS: Lipase 101 U/L (13-60); Magnesium 1.8 mg/dL (1.7-2.3)
[2022-06-07 11:30] LABS: Glucose 592 mg/dL (65-115)
--- NOTE | 2022-06-07 11:36 | ECG_ITS ---
[facility] Test Date: 2022-06-07 Pat Name: Max Duggan Department: Room: Gender: Male Quality Assurance Specialist: : 2000 Requested By: Daniela Harden Order Number: [id number] Aliayh MD: Carrington Kimball M.D. Measurements Intervals [place] Rate: 102 P: 80 RI: 128 QRS: 72 QRSD: 102 T: 77 QT: 354 QTc: 463 Interpretive Statements SINUS TACHYCARDIA POSSIBLE LEFT ATRIAL ENLARGEMENT [-0.1mV P-WAVE IN V1/V2] ABNORMAL RHYTHM ECG Compared to ECG 01/18/2022 13:52:55 Indeterminate axis no longer present Electronically Signed On 06-07-2022 20:19:14 WAFER SLICER by Carrington Kimball M.D. [id number]
[2022-06-07 12:10] LABS: NT Pro B Type Natriuretic Pept 60 pg/mL (0-125)
[2022-06-07 12:19] LABS: Ketone (Acetest) Serum Positive (Negative)
[2022-06-07 12:22] LABS: Glucose Point of Care 516 mg/dL (70-110)
[2022-06-07] MEDS: insulin regular-human 250 UNIT in sodium chloride 0.9% 250 ML 13.68 UNIT IV (12:30)
--- NOTE | 2022-06-07 13:14 | ED_ITS ---
HPI - General Adult General: Chief complaint: General Medical Stated complaint: HYPERGLYCEMIA Time Seen by Provider: 06/07/22 09:52 [facility] ED PFSH: Medical History Depression Diabetes DKA (diabetic ketoacidoses) DKA (diabetic ketoacidosis) Hyperglycemia Non-compliance Type 1 diabetes mellitus Surgical History History of dental surgery Family History Father No problems noted. Mother No problems noted. Other CAD (coronary artery disease) Social History Smoking and tobacco status: never smoked Alcohol intake: never Housing: House Course Consultations: Consultation #1: This case was reviewed with me real-time during his emergency department stay. I presented myself to the patient's room and did a focused interview and examination. His findings are consistent with diabetic ketoacidosis with volume depletion and the need for insulin, fluids usual care to close his gap and restore his biochemistry to a normal state. I discussed with the on-call hospitalist who agreed to except the patient for admission. Time: 12:14 Vital Signs: Vital signs: Vital Signs Temperature 97.6 F 06/07/22 09:47 Pulse Rate 102 H 06/07/22 10:50 Respiratory Rate 14 06/07/22 10:50 Blood Pressure 94/52 06/07/22 10:50 Pulse Oximetry 99 06/07/22 10:50 Oxygen Delivery [place] thod 06/07/22 09:47 MDM - General Adult Lab Data 06/07/22 10:05 06/07/22 10:05 Radiology Impressions Chest X-Ray 06/07/22 10:19 IMPRESSION: Prominence of the right heart border the more apparent on the current exam raising possibility of right atrial enlargement. Laboratory Results WBC 11.8 10^3/uL (4.0-10.0) H 06/07/22 10:05 RBC 4.65 10^6/uL (4.1-5.3) 06/07/22 10:05 Hgb 13.9 g/dL (11.7-16.6) 06/07/22 10:05 Hct 39.8 % (42.0-52.0) L 06/07/22 10:05 MCV 85.6 fl (80-94) 06/07/22 10:05 MCH 29.9 pg (28.0-34.0) 06/07/22 10:05 MCHC 34.9 g/dL (30.0-36.0) 06/07/22 10:05 RDW 11.5 % (12.1-15.1) L 06/07/22 10:05 Plt Count 283 10^3/cmm (130-400) 06/07/22 10:05 MPV 9.1 fL (7.4-10.4) 06/07/22 10:05 Neut % (Auto) 68.4 % 06/07/22 10:05 Lymph % (Auto) 24.5 % 06/07/22 10:05 [place] % (Auto) 3.1 % 06/07/22 10:05 Eos % (Auto) 0.6 % 06/07/22 10:05 Baso % (Auto) 0.6 % 06/07/22 10:05 Neut # (Auto) 8.03 10^3/uL (1.8-7.7) H 06/07/22 10:05 Lymph # (Auto) 2.9 10^3/uL (0.8-4.8) 06/07/22 10:05 [place] # (Auto) 0.4 10^3/uL (0.2-0.9) 06/07/22 10:05 Eos # (Auto) 0.1 10^3/uL (0.0-0.8) 06/07/22 10:05 Baso # (Auto) 0.1 10^3/uL (0.0-0.1) 06/07/22 10:05 Nucleated RBC % (auto) 0 % 06/07/22 10:05 Nucleated RBCs # 0.0 /100WBC 06/07/22 10:05 Specimen Type Venous 06/07/22 10:05 Sample Site Lab 06/07/22 10:05 Tong Test Pos 06/07/22 10:05 VBG pH 7.18 (7.32-7.42) L* 06/07/22 10:05 VBG pCO2 40.2 mmHg (41-51) L 06/07/22 10:05 VBG pO2 49.8 mmHg (25-40) H 06/07/22 10:05 VBG HCO3 14.9 mmol/L (24-28) L 06/07/22 10:05 VBG Base Excess -13.0 mmol/L (-3.0-3.0) L 06/07/22 10:05 VBG Hematocrit 44.1 % (42-52) 06/07/22 10:05 O2 Delivery Device Ra 06/07/22 10:05 Athletic Field Custodian ID Monro 06/07/22 10:05 Sodium 129 mmol/L (136-145) L 06/07/22 10:05 Potassium 4.4 mmol/L (3.5-5.1) 06/07/22 10:05 Chloride 87 mmol/L (98-107) L 06/07/22 10:05 Carbon Dioxide 15 mmol/L (22-29) L 06/07/22 10:05 Anion Gap 31.4 (5-19) H 06/07/22 10:05 BUN 22 mg/dL (6-20) H 06/07/22 10:05 Creatinine 0.9 mg/dL (0.7-1.2) 06/07/22 10:05 GFR Calculation 105.5 mL/min (90-130) 06/07/22 10:05 Glucose 592 mg/dL (65-115) H* 06/07/22 10:05 POC Glucose > 600 mg/dL (70-110) H* 06/07/22 09:53 Calculated Osmolality 299 mOsm/kg (285-295) H 06/07/22 10:05 Calcium 9.4 mg/dL (8.5-10.5) 06/07/22 10:05 Magnesium 1.8 mg/dL (1.7-2.3) 06/07/22 10:05 Total Bilirubin 0.5 mg/dL (0.15-1.2) 06/07/22 10:05 AST 21 U/L (0-40) 06/07/22 10:05 ALT 23 U/L (0-41) 06/07/22 10:05 Alkaline Phosphatase 143 U/L (40-130) H 06/07/22 10:05 NT-Pro-B Natriuret Pep 60 pg/mL (0-125) 06/07/22 10:05 Total Protein 6.9 g/dL (6.6-8.7) 06/07/22 10:05 Albumin 4.0 g/dL (3.5-5.2) 06/07/22 10:05 Globulin 2.9 g/dL (1.3-4.6) 06/07/22 10:05 Lipase 101 U/L (13-60) H 06/07/22 10:05 Serum Ketones Positive (Negative) H 06/07/22 10:05 Discharge Plan Discharge Admit Provider: Denis Rodriguez Condition: Stable Coding Level of Care Code ED Helpdesk Analyst for Porsha Diez
--- NOTE | 2022-06-07 13:25 | P.HP_ITS ---
Providers/Chief Complaint Admitting Physician: Denis Rodriguez MD Primary Care Provider: Loli Diaz APN Chief Complaint: HYPERGLYCEMIA History of Present Illness Max Duggan is a 22 year old male with past medical history of depression, type 1 diabetes on insulin with history of DKA in the past presented to the ER because of abdominal pain along with nausea and vomiting getting worse for last 2 days. Patient states he missed taking his insulin for last couple of days. Patient does have history of noncompliance in the past. Denies any recreational drug abuse other than marijuana occasionally. In the ER blood work was consistent with diabetic ketoacidosis with pH of 7.2. He received 1 L of IV fluid bolus and was started on insulin drip with target blood sugar of 200 to 250. Review of Systems General: Reports: 10 or more systems reviewed and unremarkable except in HPI and below Const: Denies: fever(s), chills, body aches, change in appetite, change in weight, malaise, night sweats, diaphoresis, change in sleep pattern, daytime sleepiness or snoring Eyes: Denies: change in vision, blurry vision, photophobia, eye discomfort or eye discharge ENMT: Denies: throat pain, enlarged tonsils, hoarseness, mouth pain, oral sores, dry mouth, tinnitus, nasal congestion or post nasal drip Card: Denies: chest pain, palpitations, irregular heart rhythm, edema, swelling of feet/ankles, lightheadedness, syncope, pre-syncope, dyspnea on exertion, orthopnea, leg pain with exertion or acrocyanosis Resp: Denies: dyspnea, productive cough, non-productive cough, wheezing, stridor, pain on inspiration, change in phlegm color, hemoptysis or chest congestion GI: Denies: abdominal pain, nausea, vomiting, hematemesis, coffee ground emesis, dysphagia, heartburn, diarrhea, constipation, bloating, GI cramping, change in bowel habits, pain on defecation, hematochezia or melena : Denies: flank pain, difficulty urinating, dysuria, urinary frequency, urinary urgency, urinary hesitancy, urinary dribbling, difficulty starting urination, change in urine stream, nocturia or hematuria Musc: Denies: neck pain, back pain, extremity pain, joint pain, joint swel ling, joint redness, joint stiffness or limited range of motion Neuro: Denies: headache(s), numbness in extremities, weakness in extremities, sensory changes, lack of coordination, difficulty walking, frequent falls, dizziness, vertigo, confusion, Slurred speech present, difficulty communicating thoughts or seizure-like activity Psych: Denies: anxiety, depression, mood swings, panic attacks, hopelessness or irritability Endo: Denies: polyuria, polydipsia, tired all the time, cold intolerance, excessive sweating, flushing or heat intolerance Jim/Lymph: Denies: easy bruising or easy bleeding All/Imm: Denies: tongue swelling, facial swelling or acute wheezing Medications/Allergies Home Medications Medication Instructions Recorded Confirmed Last Taken Type blood-glucose meter,continuous #1 ea 02/13/21 06/07/22 Unknown Rx (Dexcom G6 Manager Data Warehousing misc) blood-glucose sensor (Dexcom G6 #3 ea 02/13/21 06/07/22 Unknown Rx Sensor device) blood-glucose transmitter (Dexcom #1 ea 02/13/21 06/07/22 Unknown Rx G6 Transmitter device) escitalopram oxalate 10 mg tablet 10 mg PO DAILY #30 tabs 01/19/22 06/07/22 Unknown Rx sub-q insulin device, 40 unit #30 ea 02/04/22 06/07/22 Unknown Rx (V-GO 40 device) insulin glargine 100 unit/mL (3 30 unit (0.3 mL) SUBCUT BID #60 mL 02/16/22 06/07/22 Unknown Rx mL) subcutaneous pen (Basaglar KwikPen U-100 Insulin) insulin aspart U-100 100 unit/mL See Rx Instructions .Route 04/24/22 06/07/22 Unknown Rx (3 mL) subcutaneous pen (Novolog .COMPLEX #15 mL Flexpen U-100 Insulin aspart) Allergies Allergy/AdvReac Type Severity Reaction Status Date / Time No Known Allergies Allergy Verified 02/03/22 14:54 PFSH Acute PFSH: Medical History (Updated 06/07/22 @ 13:27 by Denis Rodriguez MD) Depression Diabetes DKA (diabetic ketoacidosis) Hyperglycemia Hypoglycemic insulin reaction in type 1 diabetes mellitus Long-term insulin use Non-compliance Type 1 diabetes mellitus Surgical History History of dental surgery Family History Father No problems noted. Mother No problems noted. Other CAD (coronary artery disease) Social History Smoking and tobacco status: never smoked Alcohol intake: never Housing: House Vitals/I&O/Wt Last Vital Signs Temp 97.6 F 06/07/22 09:47 Pulse 102 H 06/07/22 10:50 Resp 14 06/07/22 10:50 BP 94/52 06/07/22 10:50 Pulse Ox 99 06/07/22 10:50 O2 Del Method 06/07/22 09:47 06/06/22 06/07/22 06/07/22 22:59 06:59 14:59 Intake Total 1000 / 1000 Balance 1000 / 1000 Weight last 48 hrs Weight 72.575 kg Physical Exam Narrative: General: In acute distress because of nausea and abdominal pain, dehydrated, drowsy HEENT: PERRLA, pupils bilaterally equal and reactive Chest: Normal vesicular breath sounds bilaterally, no added sound CVS: S1-S2 regular, no murmurs, no tachycardia, no gallops, no rubs Abdomen: Soft, nontender, no organomegaly, bowel sounds present, morbidly obese Neuro: No focal deficits, no facial deformity, AO x3, power 5/5 in all limbs Data 06/07/22 10:05 06/07/22 10:05 A&P Assessment and plan (1) DKA (diabetic ketoacidosis): Normal saline at 125 cc/h. Monitor BMP every 4 hour. Monitor potassium. Insulin drip with target blood sugar of 200-?250. NPO. If blood sugars drop less than 200 or if potassium is less than 4 will replete potassium or switch fluids to D5 NS. (2) Uncontrolled type 1 diabetes mellitus: Check A1c. Follows up with endocrinology as an outpatient. Supposed to be on sliding scale along with Lantus 30 units twice daily. (3) Depression: Continue home dose of Celexa. Qualifiers: Depression Type: major depressive disorder Major depression recurrence: recurrent Active/Remission status: currently active Major depression episode severity: mild Qualified Code(s): F33.0 - Major depressive disorder, recurrent, mild (4) Non-compliance: Plan Full code NPO. Heparin 5000 every 12 hourly. Admit to ICU. Attestations Medical Necessity Statement*: Admission for more than 2 midnights for evaluation and management of diabetic ketoacidosis Critical Care Time: The high probability of a clinically significant, sudden or life threatening deterioration of the patient's [endocrinology] system(s) required my full and direct attention, intervention and personal management. The critical care time is as shown. This time is in addition to time spent performing any reported procedures but includes the following: [x] Data and vital sign review and interpretation [x] Patient assessment, examination and intervention [x] Documentation [x] Medication orders and management Critical Care Time (min): 60 Coding Level of Care Code Acute Instrument Lens Inspector for [facility] Fwd Diagnoses DKA (diabetic ketoacidosis) E11.10 Uncontrolled type 1 diabetes mellitus E10.65 Depression F33.0 Depression Type: major depressive disorder Major depression recurrence: recurrent Active/Remission status: currently active Major depression episode severity: mild Non-compliance Z91.19
[2022-06-07 13:33] LABS: Iron 167 ug/dL (59-158); Percent Saturation 60.9 % (20-50); Total Iron Binding Capacity 274 mcg/dl; Unsaturated Iron Binding 107 ug/dL (112-347)
[2022-06-07 13:45] LABS: Anion Gap 35.4 (5-19); Blood Urea Nitrogen 24 mg/dL (6-20); Calcium 8.8 mg/dL (8.5-10.5); Chloride 94 mmol/L (98-107); Glomerular Filtration Rate 93.4 mL/min (90-130); Osmolality Calculated 305 mOsm/kg (285-295); Potassium 4.4 mmol/L (3.5-5.1); Sodium 134 mmol/L (136-145)
[2022-06-07 13:48] LABS: Procalcitonin 0.09 ng/mL (0-0.5); Thyroid Stimulating Hormone 1.05 uIU/mL (0.27-4.20); Vitamin B12 965 pg/mL (232-1245)
[2022-06-07 13:55] LABS: Glucose Point of Care 462 mg/dL (70-110)
[2022-06-07 13:57] LABS: Carbon Dioxide 9 mmol/L (22-29); Glucose 513 mg/dL (65-115)
[2022-06-07] MEDS: sodium chloride 0.9% 1,000 ML 125 ML IV ×2 (14:05→22:06)
[2022-06-07 15:10] LABS: Glucose Point of Care 360 mg/dL (70-110)
--- NOTE | 2022-06-07 15:10 | PC.NURSE ---
Pt arrives to ICU from ED. Pt lethargic/drowy but able to answer questions. Insulin and IV fluids infusing.
[2022-06-07 16:32] LABS: Add Urine Microscopic? NO; Charge for UA Resulting for Rev
[2022-06-07 16:46] LABS: Amphetamines Screen Urine Negative (Negative); Barbiturates Screen Urine Negative (Negative); Benzodiazepines Screen Urine Negative (Negative); Cocaine Screen Urine Negative (Negative); Opiate Screen Urine Negative (Negative); PCP Screen Urine Negative (Negative); THC Screen Urine Positive (Negative)
[2022-06-07 16:47] LABS: Protein Urine Neg (Negative); Urine Appearance Clear (CLEAR); Urine Color Yellow (Yellow); pH Urine 5 (5-7)
[2022-06-07 16:48] LABS: Bilirubin Urine Neg (Negative); Blood Urine Neg (Negative); Glucose Urine UA 4+ (Normal); Ketones Urine 3+ (Negative); Leukocyte Esterase Urine Negative (Negative); Nitrate Urine Negative (Negative); Urobilinogen Urine Norm (Negative)
[2022-06-07 17:19] LABS: Glucose Point of Care 243 mg/dL (70-110)
[2022-06-07 17:19] LABS: Glucose Point of Care 311 mg/dL (70-110)
[2022-06-07] MEDS: famotidine 20 mg/2 mL INJ IVP (18:15)
--- NOTE | 2022-06-07 18:25 | PC.NURSE ---
Shift Note: Pt arrrived to ICU in afternoon. He has been resting with his eyes closed. His blood sugars are decreasing. He remains on insulin gtt and IV fluids . NO nausea or vomiting noted in ICU. He has been eaing ice chips. He urinated once , 1000ml of clear pale yellow urine. No complaints of pain. Significant other remains at bedside. Frequent safety and comfort rounds continue. Orders and/or nursing care completed as indicated. Patient monitored for response to intervention and treatment(s). Education provided includes Insulin, pepcid, plan of care and progress. Patient and/or inside sales representative verbalizes understanding. Will continue to monitor.
--- NOTE | 2022-06-07 18:51 | PC.NURSE ---
Bedside report completed with NAZARIO Mayes
[2022-06-07 19:37] LABS: Glucose Point of Care 166 mg/dL (70-110)
[2022-06-07 20:09] LABS: Anion Gap 14.5 (5-19); Blood Urea Nitrogen 20 mg/dL (6-20); Calcium 8.6 mg/dL (8.5-10.5); Carbon Dioxide 22 mmol/L (22-29); Chloride 104 mmol/L (98-107); Glomerular Filtration Rate 120.9 mL/min (90-130); Glucose 160 mg/dL (65-115); Osmolality Calculated 290 mOsm/kg (285-295); Potassium 3.5 mmol/L (3.5-5.1); Sodium 137 mmol/L (136-145)
[2022-06-07 20:44] LABS: Glucose Point of Care 136 mg/dL (70-110)
[2022-06-07 20:44] LABS: Glucose Point of Care 230 mg/dL (70-110)
[2022-06-07 22:05] LABS: Glucose Point of Care 126 mg/dL (70-110)
[2022-06-07 22:46] LABS: Glucose Point of Care 119 mg/dL (70-110)
[2022-06-07 23:09] LABS: Blood Urea Nitrogen 19 mg/dL (6-20); Calcium 8.6 mg/dL (8.5-10.5); Carbon Dioxide 22 mmol/L (22-29); Chloride 105 mmol/L (98-107); Glomerular Filtration Rate 120.9 mL/min (90-130); Glucose 103 mg/dL (65-115); Osmolality Calculated 289 mOsm/kg (285-295); Sodium 138 mmol/L (136-145)
[2022-06-07 23:14] LABS: Glucose Point of Care 100 mg/dL (70-110)
[2022-06-07 23:30] LABS: Anion Gap 14.9 (5-19); Potassium 3.9 mmol/L (3.5-5.1)
[2022-06-08] VITALS (27 sets, daily range): BP systolic 90–113; BP diastolic 41–67; PULSE 77–109; RESP 2–30; TEMP 36.6–36.8; O2SAT 97–100
[2022-06-08] MEDS: insulin glargine 100 units/1 mL 15 UNIT SUBCUT (00:27)
[2022-06-08] MEDS: potassium chloride ER 20 mEq Tablet 40 MEQ PO (00:30)
[2022-06-08 02:20] LABS: Glucose Point of Care 146 mg/dL (70-110)
[2022-06-08 02:20] LABS: Glucose Point of Care 115 mg/dL (70-110)
[2022-06-08 02:25] LABS: Glucose Point of Care 175 mg/dL (70-110)
[2022-06-08 03:13] LABS: Basophils % 0.3 %; Eosinophils % 0.1 %; Hematocrit 37.6 % (42.0-52.0); Hemoglobin 13.2 g/dL (11.7-16.6); Lymphocytes # 2.3 10^3/uL (0.8-4.8); Lymphocytes % 22.3 %; Mean Corpuscular HGB Conc 35.1 g/dL (30.0-36.0); Mean Corpuscular Hemoglobin 30.1 pg (28.0-34.0); Mean Corpuscular Volume 85.6 fl (80-94); Mean Platelet Volume 8.9 fL (7.4-10.4); Monocytes # 0.6 10^3/uL (0.2-0.9); Monocytes % 5.8 %; Neutrophils # 7.12 10^3/uL (1.8-7.7); Neutrophils % 70.6 %; Nucleated Red Blood Cells % 0 %; Platelet Count 296 10^3/cmm (130-400); Red Blood Count 4.39 10^6/uL (4.1-5.3); Red Cell Distribution Width 11.8 % (12.1-15.1); White Blood Count 10.1 10^3/uL (4.0-10.0)
[2022-06-08 03:37] LABS: Alanine Aminotransferase 18 U/L (0-41); Albumin Level 3.5 g/dL (3.5-5.2); Alkaline Phosphatase 74 U/L (40-130); Anion Gap 19.5 (5-19); Aspartate Amino Transferase 16 U/L (0-40); Blood Urea Nitrogen 18 mg/dL (6-20); Calcium 7.9 mg/dL (8.5-10.5); Carbon Dioxide 19 mmol/L (22-29); Chloride 104 mmol/L (98-107); Chol HDL Ratio 2.76 mg/dL (1.0-5.00); Cholesterol 116 mg/dL (0-200); Globulin 2.4 g/dL (1.3-4.6); Glucose 173 mg/dL (65-115); HDL Cholesterol 42 mg/dL (60-100); LDL Cholesterol Calculated 66 mg/dL (50-129); Magnesium 1.8 mg/dL (1.7-2.3); Osmolality Calculated 292 mOsm/kg (285-295); Phosphorus 3.7 mg/dL (2.5-4.5); Potassium 4.5 mmol/L (3.5-5.1); Sodium 138 mmol/L (136-145); Total Bilirubin 0.4 mg/dL (0.15-1.2); Total Protein 5.9 g/dL (6.6-8.7); Triglycerides 41 mg/dL (0-150); VLDL Cholestrol Calculation 8 mg/dL (0-30)
[2022-06-08 04:02] LABS: Estmated Average Glucose 329; Hemoglobin A1C 13.1 % (4.0-6.0)
[2022-06-08] MEDS: sodium chloride 0.9% 1,000 ML 125 ML IV (05:27)
[2022-06-08] MEDS: famotidine 20 mg/2 mL INJ IVP ×2 (05:27→18:12)
[2022-06-08 05:45] LABS: Glucose Point of Care 193 mg/dL (70-110)
[2022-06-08 06:09] LABS: Blood Urea Nitrogen 17 mg/dL (6-20); Calcium 8.2 mg/dL (8.5-10.5); Carbon Dioxide 17 mmol/L (22-29); Chloride 104 mmol/L (98-107); Glucose 177 mg/dL (65-115); Osmolality Calculated 288 mOsm/kg (285-295); Sodium 136 mmol/L (136-145)
[2022-06-08 06:17] LABS: Anion Gap 19.7 (5-19); Potassium 4.7 mmol/L (3.5-5.1)
--- NOTE | 2022-06-08 06:55 | PC.NURSE ---
Bedside report completed with NAZARIO Mayes
[2022-06-08] MEDS: insulin lispro 100 unit/1 mL SUBCUT ×2 (08:22→21:54)
[2022-06-08] MEDS: escitalopram 10 mg Tablet PO (08:23)
[2022-06-08 08:49] LABS: Glucose Point of Care 213 mg/dL (70-110)
[2022-06-08] MEDS: dextrose 5%-ns 0.45% + KCl 10 1,000 ML 150 MEQ IV ×2 (11:05→18:15)
[2022-06-08 12:31] LABS: Glucose Point of Care 236 mg/dL (70-110)
[2022-06-08 12:31] LABS: Glucose Point of Care 212 mg/dL (70-110)
[2022-06-08 12:31] LABS: Glucose Point of Care 247 mg/dL (70-110)
[2022-06-08 13:23] LABS: Anion Gap 14.8 (5-19); Blood Urea Nitrogen 14 mg/dL (6-20); Calcium 8.2 mg/dL (8.5-10.5); Carbon Dioxide 23 mmol/L (22-29); Chloride 101 mmol/L (98-107); Glucose 161 mg/dL (65-115); Osmolality Calculated 284 mOsm/kg (285-295); Potassium 3.8 mmol/L (3.5-5.1); Sodium 135 mmol/L (136-145)
[2022-06-08 14:11] LABS: Glucose Point of Care 197 mg/dL (70-110)
[2022-06-08 14:11] LABS: Glucose Point of Care 250 mg/dL (70-110)
[2022-06-08 15:28] LABS: Glucose Point of Care 198 mg/dL (70-110)
--- NOTE | 2022-06-08 15:46 | P.PN_ITS ---
Subjective Subjective: This morning overall doing okay. Denies any abdominal pain. No nausea or vomiting. This morning anion gap again higher at 19.7. Bicarb down lower at 17. Discussed with him resumption of insulin drip, change of IV fluid. He has tolerated oral intake well. Vitals/I&O/Wt Last Vital Signs Temp 98.8 F 06/07/22 17:30 Pulse 109 H 06/08/22 14:40 Resp 18 06/08/22 04:00 BP 90/58 06/08/22 04:00 Pulse Ox 97 06/08/22 04:00 O2 Del Method 06/07/22 18:15 06/08/22 06/08/22 06/08/22 06:59 14:59 22:59 Intake Total 2324.43 / 4437.781 505.852 / 505.852 7.6 / 513.452 Balance 2324.43 / 3437.781 505.852 / 505.852 7.6 / 513.452 Weight last 48 hrs Weight 72.575 kg Physical Exam Const: COMMON NORMALS: patient oriented x3 and alert GENERAL APPEARANCE: cooperative ORIENTATION/CONSCIOUSNESS: Yes awake OTHER: Ketone odor. HENMT: COMMON NORMALS: oropharynx normal Neck/C-Spine: COMMON NORMALS: no JVD Resp: COMMON NORMALS: normal respiratory effort and clear to auscultation bilaterally AUSCULTATION: clear to auscultation bilaterally Cardio: COMMON NORMALS: no JVD, regular rhythm, S1 normal heart sound present, S2 normal heart sound present and No murmurs present (Cardio) RHYTHM: regular rhythm HEART SOUNDS: S1 normal heart sound present and S2 normal heart sound present GI: COMMON NORMALS: Normal to inspection, nondistended, normoactive bowel sounds present, Soft to palpation and non-tender PALPATION: Yes Soft to palpation Extremity: COMMON NORMALS: no joint enlargement and no pedal edema Neuro: COMMON NORMALS: patient oriented x3 and moves all extremities SENS ORIUM/ORIENTATION: Yes alert Skin: COMMON NORMALS: no rashes or lesions noted GENERAL SKIN EXAM: no rashes or lesions noted Data 06/08/22 02:20 06/08/22 12:56 A&P Assessment and plan (1) DKA (diabetic ketoacidosis): Resume insulin drip, switch IVF to D5 half-normal with potassium. In the afternoon with improvement down to 14.8, bicarb with improvement up to 23. To subcu insulin. Tolerating oral intake. (2) Uncontrolled type 1 diabetes mellitus: A1c 13.1. Follows up with endocrinology as an outpatient. Supposed to be on sliding scale along with Lantus 30 units twice daily. (3) Depression: Continue home dose of Celexa. Qualifiers: Depression Type: major depressive disorder Major depression recurrence: recurrent Active/Remission status: currently active Major depression episode severity: mild Qualified Code(s): F33.0 - Major depressive disorder, recurrent, mild (4) Non-compliance: Plan Full code Heparin 5000 every 12 hourly. Attestations Medical Necessity Statement*: Continue admission for assessment of management of DKA. Critical Care Time: The high probability of a clinically significant, sudden or life threatening deterioration of the patient's endocrine/metabolic system(s) required my full and direct attention, intervention and personal management. The critical care time is as shown. This time is in addition to time spent performing any reported procedures but includes the following: x Data and vital sign review and interpretation x Patient assessment, examination and intervention x Documentation x Medication orders and management Critical Care Time (min): 45 Coding Level of Care Code Acute Pt Skilled for g Fwd Diagnoses DKA (diabetic ketoacidosis) E11.10 Uncontrolled type 1 diabetes mellitus E10.65 Depression F33.0 Depression Type: major depressive disorder Major depression recurrence: recurrent Active/Remission status: currently active Major depression episode severity: mild Non-compliance Z91.19
[2022-06-08 16:13] LABS: Glucose Point of Care 210 mg/dL (70-110)
[2022-06-08] MEDS: insulin glargine 100 units/1 mL 30 UNIT SUBCUT (17:12)
[2022-06-08 17:31] LABS: Glucose Point of Care 234 mg/dL (70-110)
[2022-06-08 18:20] LABS: Glucose Point of Care 234 mg/dL (70-110)
--- NOTE | 2022-06-08 19:20 | PC.NURSE ---
Bedside report completed with NAZARIO Hi.
--- NOTE | 2022-06-08 19:57 | PC.NURSE ---
Shift Note: Pt has been resting in bed ost of day, up to bathroom as needed. Significant other has been attentive at bedside throughout the shift. NO N/V or abd pain noted or complained of today. Pt has ate his meals well. He was off insulin gtt at beginning of shift ,then put back on it. Lantus given this evening at 1710, so insulin gtt should be off at 1910. VSS. Pt hoping to be discharged tomorrow. Frequent safety and comfort rounds continue. Orders and/or nursing care completed as indicated. Patient monitored for response to intervention and treatment(s). Education provided includes Lantus, INsulin sliding scale, Pepcid, plan of care an d progress. Patient and/or merchandiser retail representative verbalized understanding of progress, plan of care and mediations discussed. Will continue to monitor.
[2022-06-08 21:48] LABS: Glucose Point of Care 382 mg/dL (70-110)
[2022-06-09] VITALS (8 sets, daily range): BP systolic 114–118; BP diastolic 69–80; PULSE 68–82; RESP 16–22; TEMP 36.3–37.1; O2SAT 99
[2022-06-09 00:36] LABS: Glucose Point of Care 292 mg/dL (70-110)
[2022-06-09 05:18] LABS: Basophils % 0.5 %; Eosinophils % 0.4 %; Hematocrit 35.4 % (42.0-52.0); Hemoglobin 12.5 g/dL (11.7-16.6); Lymphocytes # 3.5 10^3/uL (0.8-4.8); Lymphocytes % 43.5 %; Mean Corpuscular HGB Conc 35.3 g/dL (30.0-36.0); Mean Corpuscular Hemoglobin 29.7 pg (28.0-34.0); Mean Corpuscular Volume 84.1 fl (80-94); Mean Platelet Volume 8.9 fL (7.4-10.4); Monocytes # 0.5 10^3/uL (0.2-0.9); Monocytes % 6.2 %; Neutrophils # 3.98 10^3/uL (1.8-7.7); Neutrophils % 48.9 %; Nucleated Red Blood Cells % 0 %; Platelet Count 220 10^3/cmm (130-400); Red Blood Count 4.21 10^6/uL (4.1-5.3); Red Cell Distribution Width 11.9 % (12.1-15.1); White Blood Count 8.1 10^3/uL (4.0-10.0)
[2022-06-09 05:40] LABS: Anion Gap 10.4 (5-19); Blood Urea Nitrogen 10 mg/dL (6-20); Calcium 7.9 mg/dL (8.5-10.5); Carbon Dioxide 27 mmol/L (22-29); Chloride 107 mmol/L (98-107); Glomerular Filtration Rate 207.9 mL/min (90-130); Glucose 137 mg/dL (65-115); Magnesium 1.7 mg/dL (1.7-2.3); Osmolality Calculated 293 mOsm/kg (285-295); Phosphorus 2.5 mg/dL (2.5-4.5); Potassium 3.4 mmol/L (3.5-5.1); Sodium 141 mmol/L (136-145)
[2022-06-09] MEDS: famotidine 20 mg/2 mL INJ IVP (06:39)
[2022-06-09 07:34] LABS: Glucose Point of Care 103 mg/dL (70-110)
[2022-06-09] MEDS: escitalopram 10 mg Tablet PO (08:22)
[2022-06-09] MEDS: insulin glargine 100 units/1 mL 30 UNIT SUBCUT (08:28)
[2022-06-09] MEDS: potassium chloride ER 20 mEq Tablet 40 MEQ PO (08:59)
--- NOTE | 2022-06-09 09:36 | PC.NURSE ---
All D/C instructions educated to patient, no questions or concerns expressed. patient transported home by friend at bedside
--- NOTE | 2022-06-09 10:54 | PM.DCS ---
Discharge Providers Date of Admission: 06/07/22 15:09 Date of Discharge: June 09, 2022 Attending Provider at Admission: Denis Rodriguez MD Attending Provider at Discharge: Vijay Luna Primary Care Provider: Loli Diaz APN Diagnoses at Discharge Discharge Diagnosis (1) DKA (diabetic ketoacidosis): Status: Acute (2) Uncontrolled type 1 diabetes mellitus: Status: Acute (3) Depression: Status: Acute Qualifiers: Depression Type: major depressive disorder Major depression recurrence: recurrent Active/Remission status: currently active Major depression episode severity: mild Qualified Code(s): F33.0 - Major depressive disorder, recurrent, mild (4) Non-compliance: Status: Acute Reason for Visit Reason for Visit: HYPERGLYCEMIA Hospital Course Hospital Course 20-year-old gentleman with DM1 was admitted for management of DKA, received treatment with insulin drip, IV fluids, electrolyte replacement. Transitioned back to subcutaneous insulin. Diabetes found suboptimally controlled with A1c of 13.1. Encouraged him not to miss any insulin doses in setting of DM1, with reduced oral intake potential needing to reduce dose but still continuing. Encouraged him to contact his primary providers or pediatric social worker office in case of any unusual situations. Discussed with him also be aware of risks of marijuana including risk of cannabinoid hyperemesis syndrome which could destabilize his oral intake and thus insulin regimen. Physical Exam Narrative: Significant other at bedside. Const: COMMON NORMALS: patient oriented x3 and alert GENERAL APPEARANCE: cooperative ORIENTATION/CONSCIOUSNESS: Yes awake OTHER: He reports he is feeling well. No trouble eating. No nausea, no abdominal discomfort. He feels in good shape to return home. HENMT: COMMON NORMALS: oropharynx normal Neck/C-Spine: COMMON NORMALS: no JVD Resp: COMMON NORMALS: normal respiratory effort and clear to auscultation bilaterally AUSCULTATION: clear to auscultation bilaterally Cardio: COMMON NORMALS: no JVD, regular rhythm, S1 normal heart sound present, S2 normal heart sound present and No murmurs present (Cardio) RHYTHM: regular rhythm HEART SOUNDS: S1 normal heart sound present and S2 normal heart sound present GI: COMMON NORMALS: Normal to inspection, nondistended, normoactive bowel sounds present, Soft to palpation and non-tender PALPATION: Yes Soft to palpation Extremity: COMMON NORMALS: no joint enlargement and no pedal edema Neuro: COMMON NORMALS: patient oriented x3 and moves all extremities SENSORIUM/ORIENTATION: Yes alert Skin: COMMON NORMALS: no rashes or lesions noted GENERAL SKIN EXAM: no rashes or lesions noted Discharge Data Studies Completed and Pending Completed Studies During Hospitalization Category Date Time Status XR chest 1V portable [id number] Stat Exams 06/07/22 10:19 Completed Radiology Impressions Chest X-Ray 06/07/22 10:19 IMPRESSION: Prominence of the right heart border the more apparent on the current exam raising possibility of right atrial enlargement. Laboratory Results WBC 8.1 10^3/uL (4.0-10.0) 06/09/22 04:16 RBC 4.21 10^6/uL (4.1-5.3) 06/09/22 04:16 Hgb 12.5 g/dL (11.7-16.6) 06/09/22 04:16 Hct 35.4 % (42.0-52.0) L 06/09/22 04:16 MCV 84.1 fl (80-94) 06/09/22 04:16 MCH 29.7 pg (28.0-34.0) 06/09/22 04:16 MCHC 35.3 g/dL (30.0-36.0) 06/09/22 04:16 RDW 11.9 % (12.1-15.1) L 06/09/22 04:16 Plt Count 220 10^3/cmm (130-400) 06/09/22 04:16 MPV 8.9 fL (7.4-10.4) 06/09/22 04:16 Neut % (Auto) 48.9 % 06/09/22 04:16 Lymph % (Auto) 43.5 % 06/09/22 04:16 Lyman % (Auto) 6.2 % 06/09/22 04:16 Eos % (Auto) 0.4 % 06/09/22 04:16 Baso % (Auto) 0.5 % 06/09/22 04:16 Neut # (Auto) 3.98 10^3/uL (1.8-7.7) 06/09/22 04:16 Lymph # (Auto) 3.5 10^3/uL (0.8-4.8) 06/09/22 04:16 Lyman # (Auto) 0.5 10^3/uL (0.2-0.9) 06/09/22 04:16 Eos # (Auto) 0.0 10^3/uL (0.0-0.8) 06/09/22 04:16 Baso # (Auto) 0.0 10^3/uL (0.0-0.1) 06/09/22 04:16 Nucleated RBC % (auto) 0 % 06/09/22 04:16 Nucleated RBCs # 0.0 /100WBC 06/09/22 04:16 Specimen Type Venous 06/07/22 10:05 Sample Site Lab 06/07/22 10:05 Tong Test Pos 06/07/22 10:05 VBG pH 7.18 (7.32-7.42) L* 06/07/22 10:05 VBG pCO2 40.2 mmHg (41-51) L 06/07/22 10:05 VBG pO2 49.8 mmHg (25-40) H 06/07/22 10:05 VBG HCO3 14.9 mmol/L (24-28) L 06/07/22 10:05 VBG Base Excess -13.0 mmol/L (-3.0-3.0) L 06/07/22 10:05 VBG Hematocrit 44.1 % (42-52) 06/07/22 10:05 O2 Delivery Device Ra 06/07/22 10:05 Director On Air ID Monro 06/07/22 10:05 Sodium 141 mmol/L (136-145) 06/09/22 04:16 Potassium 3.4 mmol/L (3.5-5.1) L 06/09/22 04:16 Chloride 107 mmol/L (98-107) 06/09/22 04:16 Carbon Dioxide 27 mmol/L (22-29) 06/09/22 04:16 Anion Gap 10.4 (5-19) 06/09/22 04:16 BUN 10 mg/dL (6-20) 06/09/22 04:16 Creatinine 0.5 mg/dL (0.7-1.2) L 06/09/22 04:16 GFR Calculation 207.9 mL/min (90-130) H 06/09/22 04:16 Glucose 137 mg/dL (65-115) H 06/09/22 04:16 POC Glucose 103 mg/dL (70-110) 06/09/22 07:24 Estimat Average Glucose 329 06/08/22 02:20 Hemoglobin A1c 13.1 % (4.0-6.0) H 06/08/22 02:20 Calculated Osmolality 293 mOsm/kg (285-295) 06/09/22 04:16 Calcium 7.9 mg/dL (8.5-10.5) L 06/09/22 04:16 Phosphorus 2.5 mg/dL (2.5-4.5) 06/09/22 04:16 Magnesium 1.7 mg/dL (1.7-2.3) 06/09/22 04:16 Iron Cancelled 06/07/22 13:16 TIBC Cancelled 06/07/22 13:16 % Saturation Cancelled 06/07/22 13:16 Unsat Iron Binding Cancelled 06/07/22 13:16 Total Bilirubin 0.4 mg/dL (0.15-1.2) 06/08/22 02:20 AST 16 U/L (0-40) 06/08/22 02:20 ALT 18 U/L (0-41) 06/08/22 02:20 Alkaline Phosphatase 74 U/L (40-130) 06/08/22 02:20 NT-Pro-B Natriuret Pep 60 pg/mL (0-125) 06/07/22 10:05 Total Protein 5.9 g/dL (6.6-8.7) L 06/08/22 02:20 Albumin 3.5 g/dL (3.5-5.2) 06/08/22 02:20 Globulin 2.4 g/dL (1.3-4.6) 06/08/22 02:20 Triglycerides 41 mg/dL (0-150) 06/08/22 02:20 Cholesterol 116 mg/dL (0-200) 06/08/22 02:20 LDL Cholesterol, Calc 66 mg/dL (50-129) 06/08/22 02:20 Total VLDL Cholesterol 8 mg/dL (0-30) 06/08/22 02:20 HDL Cholesterol 42 mg/dL (60-100) L 06/08/22 02:20 Cholesterol/HDL Ratio 2.76 mg/dL (1.0-5.00) 06/08/22 02:20 Lipase 101 U/L (13-60) H 06/07/22 10:05 Vitamin B12 Cancelled 06/07/22 13:16 Folate 17.0 ng/mL (4.5-32.2) 06/07/22 10:05 Procalcitonin Cancelled 06/07/22 13:16 TSH Cancelled 06/07/22 13:16 Urine Color Yellow (Yellow) 06/07/22 16:00 Urine Appearance Clear (CLEAR) 06/07/22 16:00 Urine pH 5 (5-7) 06/07/22 16:00 Ur Specific Dale 1.020 (1.005-1.030) 06/07/22 16:00 Urine Protein Neg (Negative) 06/07/22 16:00 Urine Glucose (UA) 4+ (Normal) H 06/07/22 16:00 Urine Ketones 3+ (Negative) H 06/07/22 16:00 Urine Blood Neg (Negative) 06/07/22 16:00 Urine Nitrate Negative (Negative) 06/07/22 16:00 Urine Bilirubin Neg (Negative) 06/07/22 16:00 Urine Urobilinogen Norm mg/dL (Negative) 06/07/22 16:00 Ur Leukocyte Esterase Negative (Negative) 06/07/22 16:00 Urine Opiates Screen Negative ng/mL (Negative) 06/07/22 16:00 Ur Barbiturates Screen Negative ng/mL (Negative) 06/07/22 16:00 Ur Phencyclidine Scrn Negative ng/mL (Negative) 06/07/22 16:00 Ur Amphetamines Screen Negative ng/mL (Negative) 06/07/22 16:00 U Benzodiazepines Scrn Negative ng/mL (Negative) 06/07/22 16:00 Urine Cocaine Screen Negative ng/mL (Negative) 06/07/22 16:00 U Marijuana (THC) Screen Positive ng/mL (Negative) H 06/07/22 16:00 Serum Ketones Positive (Negative) H 06/07/22 10:05 Vitals Last Vital Signs Temp 98.8 F 06/09/22 09:28 Pulse 68 06/09/22 08:00 Resp 16 06/09/22 08:00 BP 114/69 06/09/22 04:00 Pulse Ox 99 06/09/22 04:00 O2 Del Method 06/09/22 04:00 Discharge Plan Discharge Patient Disposition: Home Condition: Stable Prescriptions: Continued (DME) Dexcom G6 Virtual Reality Specialist Misc See Rx Instructions .Route Qty: 1 0RF Rx Instructions: As directed (DME) Dexcom G6 Sensor Device See Rx Instructions .Route Qty: 3 3RF Rx Instructions: As directed (DME) Dexcom G6 Transmitter Device See Rx Instructions .Route Qty: 1 3RF Rx Instructions: As directed (DME) V-GO 40 Device See Rx Instructions .Route Qty: 30 0RF Rx Instructions: As directed Basaglar KwikPen U-100 Insulin 100 unit/mL (3 mL) insulin pen 30 unit SUBCUT BID Qty: 60 3RF insulin aspart U-100 [Novolog Flexpen U-100 Insulin] 100 unit/mL (3 mL) insulin pen See Rx Instructions .ROUTE .COMPLEX Qty: 15 1RF Dose Instruction: INJECT TWO UNITS SUBCUTANEOUSLY PER ONE GRAM CARBS THREE TIMES A DAY WITH MEALS AND BLOOD SUGAR CORRECTION UP TO 60 UNITS PER DAY Rx Instructions: INJECT TWO UNITS SUBCUTANEOUSLY PER ONE GRAM CARBS THREE TIMES A DAY WITH MEALS AND BLOOD SUGAR CORRECTION UP TO 60 UNITS PER DAY escitalopram oxalate 10 mg Tablet 10 mg PO DAILY Qty: 30 0RF Discharge Orders: Discharge Order (Routine); Ordered 06/09/22 Ordered By: Vijay Luna Referrals: Jenn Garcia MD [Physician] - 06/22/22 8:15 am (DKA, uncontrolled DM) Joe,ELIZABETH Ennis [Primary Care Provider] - 06/15/22 8:00 pm Discharge Diet: Diabetic Patient Instructions: Diabetes and Diet, Diabetic Ketoacidosis (GEN), How to Give an Insulin Injection (GEN), Basic Carbohydrate Counting (GEN), What to Do if Your Blood Sugar is Low (GEN) Activity Restrictions/Additional Instructions: Consistent carbohydrate diet. Check your blood glucose at least 3, preferably 4 times a day. Maintain a log to bring to your appointment. Diabetes is suboptimally controlled, A1c is 13.1 putting you at risk of long-term complications as well as recurrence of DKA. Do not miss insulin doses (unless your blood glucose is low) as with type 1 diabetes your body requires insulin at all times. Missing insulin puts you at risk of DKA. In case not eating may need to decrease insulin doses to lower dose. Contact your doctor's office in case of unforeseen circumstances. Continue optimization of diabetes control with your pediatric social worker and primary doctor. Discharge Attestations Time Spent in Discharge Care*: greater than 30 min Quality Metrics Clinical Quality Measures [ No reported AMI, CVA or VTE this stay] Coding Level of Care Code Acute Chg FW DC note Diagnoses DKA (diabetic ketoacidosis) E11.10 Uncontrolled type 1 diabetes mellitus E10.65 Depression F33.0 Depression Type: major depressive disorder Major depression recurrence: recurrent Active/Remission status: currently active Major depression episode severity: mild Non-compliance Z91.19
== END 2022-06-09 09:29 | disposition home or self-care (01) | DRG 638 ==
LOC: ER 12:48 → ICU 13:15
PROVIDERS: Emergency Medicine; Admitting Provider Student in an Organized Health Care Education/Training Program; Emergency Provider Registered Nurse; PCP Nurse Practitioner Family; Visit Provider Internal Medicine
DX: E10.10 Type 1 diabetes mellitus with ketoacidosis without coma (principal); F33.0 Major depressive disorder, recurrent, mild; T38.3X6A Underdosing of insulin and oral hypoglycemic [antidiabetic] drugs, initial encounter; Z91.128 Patient's intentional underdosing of medication regimen for other reason; F12.10 Cannabis abuse, uncomplicated
CPT/HCPCS: 36415; 36416; 71045; 80048; 80053; 80061; 80306; 81003; 82009; 82607; 82746; 82803; 82962; 83036; 83540; 83550; 83690; 83735; 83880; 84100; 84145; 84443; 85025; 93005; 96365; 96372; 96375; 99285; J1815; J2405; J3490; J7030; J7050

== ENCOUNTER → 2022-07-27 13:08 | Outpatient (BNVA) | payer MEDICAID, SELFPAY | PROVIDERS: PCP Nurse Practitioner Family; Visit Provider Nurse Practitioner Family | DX: M79.642 Pain in left hand (principal) | CPT/HCPCS: 73130 ==

== ENCOUNTER 2022-08-04 15:33 | Outpatient (CLI) | payer MEDICAID, SELFPAY | END 2022-08-04 15:34 | disposition home or self-care (01) | LOC: SPT 15:34 | PROVIDERS: PCP Nurse Practitioner Family; Visit Provider Orthopaedic Surgery | DX: Z46.89 Encounter for fitting and adjustment of other specified devices (principal); S62.307D Unspecified fracture of fifth metacarpal bone, left hand, subsequent encounter for fracture with routine healing; X58.XXXD Exposure to other specified factors, subsequent encounter | CPT/HCPCS: 97760; L3984 ==

== ENCOUNTER 2023-04-09 22:42 | Inpatient (IN) | payer MEDICAID, SELFPAY ==
[2023-04-09 22:43] VITALS: BP 119/85; PULSE 97; RESP 16; TEMP 37.1; O2SAT 100
[2023-04-09 23:03] LABS: Basophils # 0.1 10^3/uL (0.0-0.1); Basophils % 0.5 %; Eosinophils % 0.2 %; Hematocrit 42.9 % (37-53); Lymphocytes % 20.8 %; Mean Corpuscular HGB Conc 35.4 g/dL (30-55); Mean Corpuscular Hemoglobin 30.2 pg (27-33); Mean Corpuscular Volume 85.3 fl (82-101); Mean Platelet Volume 9.2 fL (7.4-10.4); Monocytes # 0.3 10^3/uL (0.2-0.9); Monocytes % 2.8 %; Neutrophils # 7.11 10^3/uL (1.8-7.7); Neutrophils % 75.3 %; Nucleated Red Blood Cells % 0 %; Platelet Count 316 10^3/cmm (157-399); Red Blood Count 5.03 10^6/uL (3.85-5.65); Red Cell Distribution Width 11.1 % (12.1-15.1); White Blood Count 9.44 10^3/uL (3.29-11.43)
--- NOTE | 2023-04-09 23:10 | W.ED.ABDPA2 ---
Documented by User: KOREY Ramsey 04/10/23 00:16 HPI - Abdominal Pain General: Chief Complaint: Abdominal Pain Stated Complaint: HIGH BLOOD SUGAR Time Seen by Provider: 04/09/23 22:49 Source: patient Mode of arrival: EMS Limitations: no limitations History of Present Illness: Patient presents emergency department today for evaluation treatment of elevated blood sugar readings. Patient is a type I diabetic. He does not have an insulin pump. He states it is always been easier for him to self adjust his insulin and inject with pins though he admits he does not check his blood sugars regularly as he should. Patient states that he began feeling extremely nauseated, dizzy, clammy and when EMS arrived, patient was found to have extremely high blood sugars. Patient was also dry heaving at the time of EMS arrival. Patient reports that through the day he was extremely fatigued and did not feel well. He spent most of the day in bed and reports he drank over 8 bottles of water. When asked about increase in urination he indicated he did not think he was urinating as much as he should. Patient states he did not check his blood sugar but administered 13 units of fast acting insulin around 930. He admits he is feeling much better but, still had a blood sugar of 590 upon arrival here in the emergency department. Patient offhandedly mentions he has been having some generalized abdominal discomfort for a couple of months now and has never had it evaluated. He indicated he just wanted to mention it since he was already here. Review of Systems General: Reports: 10 or more systems reviewed and unremarkable except in HPI and below PFSH ED PFSH: Medical History Depression Diabetes DKA (diabetic ketoacidosis) Hyperglycemia Hypoglycemic insulin reaction in type 1 diabetes mellitus Long-term insulin use Non-compliance Type 1 diabetes mellitus Surgical History History of dental surgery Family History Father No problems noted. Mother No problems noted. Other CAD (coronary artery disease) Social History Smoking and tobacco/nicotine status: never used tobacco/nicotine Alcohol intake: never Substance/Drug Use: never Housing: House Physical Exam Const: COMMON NORMALS: no acute distress, patient oriented x3 and alert OTHER: Patient is sitting upright in the bed. He is calm, pleasant, and social. He answers his own history. Vital signs are stable. HENMT: COMMON NORMALS: normocephalic, atraumatic, hearing grossly normal bilaterally and moist oral mucous membranes HEAD & SCALP: normocephalic and atraumatic Eye: COMMON NORMALS: Equal, round and reactive pupils present, EOMs intact bilaterally and conjunctivae normal CONJUNCTIVA: Yes conjunctivae normal PUPIL: Yes Equal, round and reactive pupils present Neck/C-Spine: COMMON NORMALS: full ROM and no JVD Lymph: LYMPHATIC: no lymphadenopathy noted Resp: COMMON NORMALS: normal respiratory effort, No retractions, No use of accessory muscles and clear to auscultation bilaterally AUSCULTATION: clear to auscultation bilaterally Cardio: COMMON NORMALS: no JVD, regular rate and regular rhythm RATE: regular rate RHYTHM: regular rhythm GI: OTHER: Soft. Nontender. : COMMON NORMALS: Yes no CVA tenderness BLADDER/KIDNEY EXAM: Yes no CVA tenderness Back/Pelvis: COMMON NORMALS: no CVA tenderness, no thoracic nor lumbar tenderness and thoraco-lumbar ROM normal Extremity: COMMON NORMALS: normal to inspection, full ROM and capillary refill normal Neuro: COMMON NORMALS: patient oriented x3 SENSORIUM/ORIENTATION: Yes alert Psych: COMMON NORMALS: mental status grossly normal, Normal thought process present, cooperative, normal affect and activity/motor behavior normal THOUGHT PROCESS: Normal thought process present Skin: COMMON NORMALS: no rashes or lesions noted and no wounds GENERAL SKIN EXAM: no rashes or lesions noted Course Vital Signs: Vital signs: Vital Signs Temperature 98.8 F 04/10/23 13:41 Pulse Rate 90 04/10/23 13:41 Respiratory Rate 12 04/10/23 13:41 Blood Pressure 113/70 04/10/23 13:41 Pulse Oximetry 98 04/10/23 13:41 Oxygen Delivery Me thod Room Air 04/10/23 13:00 MDM - Abdominal Pain Medical Decision Making Patient presents to the emergency department today with suspected DKA. Patient provided himself his own insulin at home however, an hour and a half later still has blood sugar readings of 590. We did start the patient on the DKA protocol down here in the emergency department with a 10 unit bolus and insulin drip. Fluids were continued. Patient's labs showed he did have elevated lactic and positive serum ketones. Patient sodium was 131 and potassium was 4.3. CO2 was 18 with an anion gap of 28.3. Venous blood gas showed pH of 7.26 and a bicarb of 21.1. I was able to speak with Dr. Oh several times through the patient's evaluation for consult. We reached out to Dr. Whyte regarding ICU admission as patient is still requiring insulin drip. Agreement to admission to the ICU. Dr. Oh has graciously agreed to place admission orders. We will defer care for continued treatment and management of DKA to the hospitalist services at this time. Differential Diagnosis Likely abdominal pain; Unlikely acute appendicitis, calculus of kidney, constipation, diverticulitis, gastroenteritis, pancreatitis or small bowel obstruction Lab Data 04/09/23 22:55 04/10/23 08:23 Labs/Radiology: Laboratory Results WBC 9.44 10^3/uL (3.29-11.43) 04/09/23 22:55 RBC 5.03 10^6/uL (3.85-5.65) 04/09/23 22:55 Hgb 15.20 g/dL (11.27-16.99) 04/09/23 22:55 Hct 42.9 % (37-53) 04/09/23 22:55 MCV 85.3 fl (82-101) 04/09/23 22:55 MCH 30.2 pg (27-33) 04/09/23 22:55 MCHC 35.4 g/dL (30-55) 04/09/23 22:55 RDW 11.1 % (12.1-15.1) L 04/09/23 22:55 Plt Count 316 10^3/cmm (157-399) 04/09/23 22:55 MPV 9.2 fL (7.4-10.4) 04/09/23 22:55 Neut % (Auto) 75.3 % 04/09/23 22:55 Lymph % (Auto) 20.8 % 04/09/23 22:55 Wake % (Auto) 2.8 % 04/09/23 22:55 Eos % (Auto) 0.2 % 04/09/23 22:55 Baso % (Auto) 0.5 % 04/09/23 22:55 Neut # (Auto) 7.11 10^3/uL (1.8-7.7) 04/09/23 22:55 Lymph # (Auto) 2.0 10^3/uL (0.8-4.8) 04/09/23 22:55 Wake # (Auto) 0.3 10^3/uL (0.2-0.9) 04/09/23 22:55 Eos # (Auto) 0.0 10^3/uL (0.0-0.8) 04/09/23 22:55 Baso # (Auto) 0.1 10^3/uL (0.0-0.1) 04/09/23 22:55 Nucleated RBC % (auto) 0 % 04/09/23 22:55 Nucleated RBCs # 0.0 /100WBC 04/09/23 22:55 Specimen Type Venous 04/09/23 23:10 Tong Test N/a 04/09/23 23:10 VBG pH 7.26 (7.32-7.42) L 04/09/23 23:10 VBG pCO2 46.3 mmHg (41-51) 04/09/23 23:10 VBG pO2 29.8 mmHg (25-40) 04/09/23 23:10 VBG HCO3 21.1 mmol/L (24-28) L 04/09/23 23:10 VBG Base Excess -6.0 mmol/L (-3.0-3.0) L 04/09/23 23:10 VBG Hematocrit 46.3 % (42-52) 04/09/23 23:10 O2 Delivery Device Room air 04/09/23 23:10 FiO2 21.0 % 04/09/23 23:10 Specimen Drawn By [email or web address] 04/09/23 23:10 Director Corporate Security ID [facility] 04/09/23 23:10 Sodium 131 mmol/L (136-145) L 04/09/23 22:55 Potassium 4.3 mmol/L (3.5-5.1) 04/09/23 22:55 Chloride 89 mmol/L (98-107) L 04/09/23 22:55 Carbon Dioxide 18 mmol/L (22-29) L 04/09/23 22:55 Anion Gap 28.3 (5-19) H 04/09/23 22:55 BUN 23 mg/dL (6-20) H 04/09/23 22:55 Creatinine 0.9 mg/dL (0.7-1.2) 04/09/23 22:55 GFR Calculation 104.6 mL/min (90-130) 04/09/23 22:55 Glucose 570 mg/dL (65-115) H* 04/09/23 22:55 POC Glucose 479 mg/dL (70-110) H 04/09/23 23:42 Calculated Osmolality 302 mOsm/kg (285-295) H 04/09/23 22:55 Lactic Acid 3.0 mmol/L (0.5-2.2) H 04/09/23 22:55 Calcium 9.3 mg/dL (8.5-10.5) 04/09/23 22:55 Phosphorus 3.8 mg/dL (2.5-4.5) 04/09/23 22:55 Magnesium 1.9 mg/dL (1.7-2.3) 04/09/23 22:55 Total Bilirubin 0.8 mg/dL (0.15-1.2) 04/09/23 22:55 AST 26 U/L (0-40) 04/09/23 22:55 ALT 21 U/L (0-41) 04/09/23 22:55 Alkaline Phosphatase 137 U/L (40-130) H 04/09/23 22:55 Total Protein 7.5 g/dL (6.6-8.7) 04/09/23 22:55 Albumin 4.7 g/dL (3.5-5.2) 04/09/23 22:55 Globulin 2.8 g/dL (1.3-4.6) 04/09/23 22:55 Lipase 32 U/L (13-60) 04/09/23 22:55 Procalcitonin 0.09 ng/mL (0-0.5) 04/09/23 22:55 Serum Ketones Positive (Negative) H 04/09/23 22:55 No radiology studies performed this visit Discharge Plan Discharge Patient Disposition: Admitted As Inpatient Admit Provider: Dominique Whyte Clinical Impression: DKA (diabetic ketoacidosis) Condition: Stable Discharge Diet: Regular Discharge Activity: Resume usual activity Coding Level of Care Code ED Sales Performance Manager for Chg Fwd Documented by User: Olman Oh DO 04/10/23 15:49 HPI - Abdominal Pain General: Chief Complaint: Abdominal Pain Stated Complaint: HIGH BLOOD SUGAR Time Seen by Provider: 04/09/23 22:49 PFS ED PFSH: Medical History Depression Diabetes DKA (diabetic ketoacidosis) Hyperglycemia Hypoglycemic insulin reaction in type 1 diabetes mellitus Long-term insulin use Non-compliance Type 1 diabetes mellitus Surgical History History of dental surgery Family History Father No problems noted. Mother No problems noted. Other CAD (coronary artery disease) Social History Smoking and tobacco/nicotine status: never used tobacco/nicotine Alcohol intake: never Substance/Drug Use: never Housing: House Course Vital Signs: Vital signs: Vital Signs Temperature 98.8 F 04/10/23 13:41 Pulse Rate 90 04/10/23 13:41 Respiratory Rate 12 04/10/23 13:41 Blood Pressure 113/70 04/10/23 13:41 Pulse Oximetry 98 04/10/23 13:41 Oxygen Delivery Me thod Room Air 04/10/23 13:00 MDM - Abdominal Pain Medical Decision Making Patient presents to the emergency department today with suspected DKA. Patient provided himself his own insulin at home however, an hour and a half later still has blood sugar readings of 590. We did start the patient on the DKA protocol down here in the emergency department with a 10 unit bolus and insulin drip. Fluids were continued. Patient's labs showed he did have elevated lactic and positive serum ketones. Patient sodium was 131 and potassium was 4.3. CO2 was 18 with an anion gap of 28.3. Venous blood gas showed pH of 7.26 and a bicarb of 21.1. I was able to speak with Dr. Oh several times through the patient's evaluation for consult. We reached out to Dr. Whyte regarding ICU admission as patient is still requiring insulin drip. Agreement to admission to the ICU. Dr. Oh has graciously agreed to place admission orders. We will defer care for continued treatment and management of DKA to the hospitalist services at this time. This patient was originally seen by Cornel Campbell PA-C. I agree with her history, evaluation, and management. Lab Data 04/09/23 22:55 04/10/23 08:23 Labs/Radiology: Laboratory Results WBC 9.44 10^3/uL (3.29-11.43) 04/09/23 22:55 RBC 5.03 10^6/uL (3.85-5.65) 04/09/23 22:55 Hgb 15.20 g/dL (11.27-16.99) 04/09/23 22:55 Hct 42.9 % (37-53) 04/09/23 22:55 MCV 85.3 fl (82-101) 04/09/23 22:55 MCH 30.2 pg (27-33) 04/09/23 22:55 MCHC 35.4 g/dL (30-55) 04/09/23 22:55 RDW 11.1 % (12.1-15.1) L 04/09/23 22:55 Plt Count 316 10^3/cmm (157-399) 04/09/23 22:55 MPV 9.2 fL (7.4-10.4) 04/09/23 22:55 Neut % (Auto) 75.3 % 04/09/23 22:55 Lymph % (Auto) 20.8 % 04/09/23 22:55 Wake % (Auto) 2.8 % 04/09/23 22:55 Eos % (Auto) 0.2 % 04/09/23 22:55 Baso % (Auto) 0.5 % 04/09/23 22:55 Neut # (Auto) 7.11 10^3/uL (1.8-7.7) 04/09/23 22:55 Lymph # (Auto) 2.0 10^3/uL (0.8-4.8) 04/09/23 22:55 Wake # (Auto) 0.3 10^3/uL (0.2-0.9) 04/09/23 22:55 Eos # (Auto) 0.0 10^3/uL (0.0-0.8) 04/09/23 22:55 Baso # (Auto) 0.1 10^3/uL (0.0-0.1) 04/09/23 22:55 Nucleated RBC % (auto) 0 % 04/09/23 22:55 Nucleated RBCs # 0.0 /100WBC 04/09/23 22:55 Specimen Type Venous 04/09/23 23:10 Tong Test N/a 04/09/23 23:10 VBG pH 7.26 (7.32-7.42) L 04/09/23 23:10 VBG pCO2 46.3 mmHg (41-51) 04/09/23 23:10 VBG pO2 29.8 mmHg (25-40) 04/09/23 23:10 VBG HCO3 21.1 mmol/L (24-28) L 04/09/23 23:10 VBG Base Excess -6.0 mmol/L (-3.0-3.0) L 04/09/23 23:10 VBG Hematocrit 46.3 % (42-52) 04/09/23 23:10 O2 Delivery Device Room air 04/09/23 23:10 FiO2 21.0 % 04/09/23 23:10 Specimen Drawn By Quentin 04/09/23 23:10 Director Corporate Security ID [facility] 04/09/23 23:10 Sodium 131 mmol/L (136-145) L 04/09/23 22:55 Potassium 4.3 mmol/L (3.5-5.1) 04/09/23 22:55 Chloride 89 mmol/L (98-107) L 04/09/23 22:55 Carbon Dioxide 18 mmol/L (22-29) L 04/09/23 22:55 Anion Gap 28.3 (5-19) H 04/09/23 22:55 BUN 23 mg/dL (6-20) H 04/09/23 22:55 Creatinine 0.9 mg/dL (0.7-1.2) 04/09/23 22:55 GFR Calculation 104.6 mL/min (90-130) 04/09/23 22:55 Glucose 570 mg/dL (65-115) H* 04/09/23 22:55 POC Glucose 479 mg/dL (70-110) H 04/09/23 23:42 Calculated Osmolality 302 mOsm/kg (285-295) H 04/09/23 22:55 Lactic Acid 3.0 mmol/L (0.5-2.2) H 04/09/23 22:55 Calcium 9.3 mg/dL (8.5-10.5) 04/09/23 22:55 Phosphorus 3.8 mg/dL (2.5-4.5) 04/09/23 22:55 Magnesium 1.9 mg/dL (1.7-2.3) 04/09/23 22:55 Total Bilirubin 0.8 mg/dL (0.15-1.2) 04/09/23 22:55 AST 26 U/L (0-40) 04/09/23 22:55 ALT 21 U/L (0-41) 04/09/23 22:55 Alkaline Phosphatase 137 U/L (40-130) H 04/09/23 22:55 Total Protein 7.5 g/dL (6.6-8.7) 04/09/23 22:55 Albumin 4.7 g/dL (3.5-5.2) 04/09/23 22:55 Globulin 2.8 g/dL (1.3-4.6) 04/09/23 22:55 Lipase 32 U/L (13-60) 04/09/23 22:55 Procalcitonin 0.09 ng/mL (0-0.5) 04/09/23 22:55 Serum Ketones Positive (Negative) H 04/09/23 22:55 Discharge Plan Discharge Patient Disposition: Admitted As Inpatient Admit Provider: Dominique Whyte Clinical Impression: DKA (diabetic ketoacidosis) Condition: Stable Discharge Diet: Regular Discharge Activity: Resume usual activity Coding Level of Care Code ED Sales Performance Manager for Chg Chary
[2023-04-09 23:18] LABS: Ketone (Acetest) Serum Positive (Negative)
[2023-04-09 23:21] VITALS: BP 120/60; PULSE 89; RESP 16; TEMP 36.8; O2SAT 97
[2023-04-09] MEDS: sodium chloride 0.9% 1,000 ML 999 ML IV (23:25)
[2023-04-09 23:27] LABS: Alanine Aminotransferase 21 U/L (0-41); Albumin Level 4.7 g/dL (3.5-5.2); Alkaline Phosphatase 137 U/L (40-130); Blood Urea Nitrogen 23 mg/dL (6-20); Calcium 9.3 mg/dL (8.5-10.5); Carbon Dioxide 18 mmol/L (22-29); Chloride 89 mmol/L (98-107); Creatinine Clr Calc Pharmacy 135.6976; Globulin 2.8 g/dL (1.3-4.6); Glomerular Filtration Rate 104.6 mL/min (90-130); Lipase 32 U/L (13-60); Magnesium 1.9 mg/dL (1.7-2.3); Osmolality Calculated 302 mOsm/kg (285-295); Phosphorus 3.8 mg/dL (2.5-4.5); Sodium 131 mmol/L (136-145); Total Bilirubin 0.8 mg/dL (0.15-1.2); Total Protein 7.5 g/dL (6.6-8.7)
[2023-04-09 23:29] LABS: Glucose Point of Care 590 mg/dL (70-110)
[2023-04-09 23:34] LABS: Procalcitonin 0.09 ng/mL (0-0.5)
[2023-04-09 23:38] LABS: Glucose 570 mg/dL (65-115)
[2023-04-09 23:39] LABS: Anion Gap 28.3 (5-19); Aspartate Amino Transferase 26 U/L (0-40); Potassium 4.3 mmol/L (3.5-5.1)
[2023-04-09 23:45] LABS: Glucose Point of Care 479 mg/dL (70-110)
[2023-04-09 23:52] LABS: PCO2 VBG 46.3 mmHg (41-51); pH VBG 7.26 (7.32-7.42)
[2023-04-09 23:53] LABS: HCO3 VBG 21.1 mmol/L (24-28); Oxygen Device ROOM AIR; PO2 VBG 29.8 mmHg (25-40)
[2023-04-09 23:55] LABS: Blood Gas Sample Type VENOUS
[2023-04-09 23:56] LABS: Venous Blood Gas Hematocrit 46.3 % (42-52)
[2023-04-10] VITALS (126 sets, daily range): BP systolic 98–117; BP diastolic 54–77; PULSE 0–112; RESP 0–32; TEMP 36.7–37.1; O2SAT 93–100
[2023-04-10] MEDS: insulin regular-human 100 units/1 mL 10 UNIT IVP (00:23)
[2023-04-10] MEDS: insulin regular-human 250 UNIT in sodium chloride 0.9% 250 ML 7.58 UNIT IV (00:24)
[2023-04-10 00:46] LABS: Reflex Lactate Order REFLEX LACTIC ORDERD
[2023-04-10] MEDS: metoclopramide 5 mg/mL SDV 2 mL 10 MG IVP (01:03)
[2023-04-10 01:42] LABS: Glucose Point of Care 234 mg/dL (70-110)
[2023-04-10 01:45] LABS: Lactic Acid level (Lactate) 2.1 mmol/L (0.5-2.2)
--- NOTE | 2023-04-10 01:46 | PC.NURSE ---
Patient's blood sugar dropped from 479 to [address] Whyte was notified and orders were given to half the insulin drip rate and to start dextrose fluid.
--- NOTE | 2023-04-10 01:48 | PM.HP ---
Providers/Chief Complaint Admitting Physician: Dominique Whyte MD Primary Care Provider: Ree Mason APN Chief Complaint: HIGH BLOOD SUGAR History of Present Illness Max Duggan is a 23 year old male with a past medical history of type 1 diabetes mellitus, typically uses Lantus and NovoLog pens at home. States that yesterday he missed his Lantus 20 units subcutaneously. Thereafter all day today he has been having nausea vomiting and feeling dehydrated. Presented to the emergency room with the symptoms, found to have evidence of DKA with blood sugar greater than 500, positive serum ketones and high anion gap metabolic acidosis. Denies any other symptoms or complaints at this time. No complaints of chest pain dyspnea palpitations syncope abdominal pain diarrhea. Review of Systems General: Reports: 10 or more systems reviewed and unremarkable except in HPI and below Const: Denies: fever(s), chills or body aches Eyes: Denies: change in vision, blurry vision or photophobia ENMT: Reports: hoarseness; Denies: throat pain, enlarged tonsils, odynophagia or nasal congestion Card: Denies: chest pain, palpitations, irregular heart rhythm, edema, swelling of feet/ankles, lightheadedness, pre-syncope, dyspnea on exertion or orthopnea Resp: Denies: dyspnea, productive cough, non-productive cough, wheezing, stridor, pain on inspiration, change in phlegm color, hemoptysis or chest congestion GI: Denies: abdominal pain, nausea, vomiting, hematemesis, coffee ground emesis, dysphagia, heartburn, diarrhea, constipation, GI cramping, change in stool character, hematochezia or melena : Denies: flank pain, dysuria, urinary frequency, urinary urgency, urinary hesitancy or hematuria Musc: Denies: neck pain, back pain, extremity pain, joint swelling, joint warmth or deformity Neuro: Denies: headache(s), numbness in extremities, weakness in extremities, sensory changes, difficulty walking, frequent falls, dizziness, vertigo, behavioral changes, Slurred speech present or seizure-like activity Psych: Denies: anxiety, depression, suicidal ideation or homicidal ideation Endo: Denies: polyuria, polydipsia, tired all the time, cold intolerance or hot flashes Jim/Lymph: Denies: easy bruising or easy bleeding Medications/Allergies Home Medications Medication Instructions Recorded Confirmed Last Taken Type blood-glucose meter,continuous #1 ea 02/13/21 08/04/22 Unknown Rx (Dexcom G6 Retail Sales Consultant) blood-glucose sensor (Dexcom G6 #3 ea 02/13/21 08/04/22 Unknown Rx Sensor device) blood-glucose transmitter (Dexcom #1 ea 02/13/21 08/04/22 Unknown Rx G6 Transmitter device) sub-q insulin device, 40 unit #30 ea 02/04/22 08/04/22 Unknown Rx (V-GO 40 device) escitalopram oxalate 10 mg tablet 10 mg PO DAILY #30 tabs 07/27/22 08/04/22 Unknown Rx insulin glargine 100 unit/mL (3 30 unit (0.3 mL) SUBCUT BID #60 mL 07/27/22 08/04/22 Unknown Rx mL) subcutaneous pen (Basaglar KwikPen U-100 Insulin) ulnar gutter fast form #1 ea 08/04/22 08/04/22 Unknown Rx insulin aspart U-100 100 unit/mL See Rx Instructions .Route 01/25/23 Unknown Rx (3 mL) subcutaneous pen (Novolog .COMPLEX #15 mL FlexPen U-100 Insulin aspart) Allergies Allergy/AdvReac Type Severity Reaction Status Date / Time No Known Allergies Allergy Verified 04/09/23 22:49 PFSH Acute PFSH: Medical History Depression Diabetes DKA (diabetic ketoacidosis) Hyperglycemia Hypoglycemic insulin reaction in type 1 diabetes mellitus Long-term insulin use Non-compliance Type 1 diabetes mellitus Surgical History History of dental surgery Family History Father No problems noted. Mother No problems noted. Other CAD (coronary artery disease) Social History Smoking and tobacco/nicotine status: never used tobacco/nicotine Alcohol intake: never Substance/Drug Use: never Housing: House Vitals/I&O/Wt Last Vital Signs Temp 98.3 F 04/09/23 23:21 Pulse 89 04/09/23 23:21 Resp 16 04/09/23 23:21 BP 120/60 04/09/23 23:21 Pulse Ox 97 04/09/23 23:21 O2 Del Method Room Air 04/10/23 01:30 04/09/23 04/09/23 04/10/23 14:59 22:59 06:59 Intake Total 10.107 / .107 Balance 10.107 / 10.107 Weight last 48 hrs Weight 68.039 kg Physical Exam Narrative: General: No acute distress, AO x3 HEENT: PERRLA, pupils bilaterally equal and reactive, pallors not present Chest: Normal vesicular breath sounds, no added sounds, equal good air entry bilaterally CVS: S1-S2 regular, no murmurs, no tachycardia, no gallops, no rubs Abdomen: Soft, nontender, no organomegaly, bowel sounds present Neuro: No focal deficits, no facial deformity, AO x3, power 5/5 in all limbs Extremities: No edema clubbing or cyanosis Data 04/09/23 22:55 04/09/23 22:55 A&P Assessment and plan (1) DKA (diabetic ketoacidosis): Diabetic ketoacidosis: likely precipitated by missing lantus the previous night Start patient on insulin drip as per DKA/HHS protocol with target blood sugars between 100-130 normal saline at 75 cc/h. We will switch to D5 NS once blood sugar less than 250. Monitor BMP every 6 hours. Once potassium less than 4 we will add 20 mg of potassium to IV fluids. Monitor saturations. Maintain over 90%. Transition to sliding scale and long-acting insulin once anion gap resolves. check [id number] Attestations Medical Necessity Statement*: Anticipate that he may need more than 2 midnight stay for management of DKA Coding Level of Care Code Acute Code for Chg Fwd Moderate MDM includes number and complexity of problems actively addressed during encounter, amount and/or complexity of data reviewed/ordered and described risk of complication, morbidity or mortality of management as documented Diagnoses DKA (diabetic ketoacidosis) E11.10
[2023-04-10] MEDS: dextrose 5%-sod chloride 0.9% 1,000 ML 75 ML IV (02:02)
[2023-04-10 02:41] LABS: Glucose Point of Care 201 mg/dL (70-110)
[2023-04-10 03:26] LABS: Glucose Point of Care 181 mg/dL (70-110)
[2023-04-10 04:23] LABS: Estmated Average Glucose 240
[2023-04-10 04:28] LABS: Alanine Aminotransferase 14 U/L (0-41); Albumin Level 3.9 g/dL (3.5-5.2); Alkaline Phosphatase 87 U/L (40-130); Anion Gap 13.8 (5-19); Aspartate Amino Transferase 14 U/L (0-40); Blood Urea Nitrogen 19 mg/dL (6-20); Calcium 8.5 mg/dL (8.5-10.5); Carbon Dioxide 26 mmol/L (22-29); Chloride 102 mmol/L (98-107); Globulin 2.1 g/dL (1.3-4.6); Glomerular Filtration Rate 139.8 mL/min (90-130); Glucose 159 mg/dL (65-115); Osmolality Calculated 292 mOsm/kg (285-295); Potassium 3.8 mmol/L (3.5-5.1); Sodium 138 mmol/L (136-145); Total Bilirubin 0.5 mg/dL (0.15-1.2)
[2023-04-10 04:29] LABS: Magnesium 1.8 mg/dL (1.7-2.3)
--- NOTE | 2023-04-10 04:30 | PC.NURSE ---
Patient's anion gap is 13.8, Carbon Dioxide is 26 and BG is 175. Dr. Whyte ordered for lantus sub q to be started and for insulin drip to be discontinued after 1 hour.
[2023-04-10 04:31] LABS: Glucose Point of Care 175 mg/dL (70-110)
[2023-04-10] MEDS: potassium chloride ER 20 mEq Tablet PO (04:47)
[2023-04-10] MEDS: insulin glargine 100 units/1 mL 20 UNIT SUBCUT (04:55)
[2023-04-10 05:22] LABS: Glucose Point of Care 176 mg/dL (70-110)
[2023-04-10 07:23] LABS: Glucose Point of Care 159 mg/dL (70-110)
[2023-04-10] MEDS: pantoprazole DR 40 mg Tablet PO (08:15)
[2023-04-10] MEDS: insulin lispro 100 unit/1 mL SUBCUT (08:15)
[2023-04-10] MEDS: sodium chloride 0.9% 1,000 ML 100 ML IV (09:08)
[2023-04-10 09:48] LABS: Alanine Aminotransferase 14 U/L (0-41); Albumin Level 3.8 g/dL (3.5-5.2); Alkaline Phosphatase 81 U/L (40-130); Anion Gap 14.9 (5-19); Aspartate Amino Transferase 14 U/L (0-40); Blood Urea Nitrogen 18 mg/dL (6-20); Calcium 8.7 mg/dL (8.5-10.5); Carbon Dioxide 24 mmol/L (22-29); Chloride 101 mmol/L (98-107); Globulin 2.5 g/dL (1.3-4.6); Glomerular Filtration Rate 139.8 mL/min (90-130); Glucose 121 mg/dL (65-115); Osmolality Calculated 285 mOsm/kg (285-295); Potassium 3.9 mmol/L (3.5-5.1); Sodium 136 mmol/L (136-145); Total Bilirubin 0.7 mg/dL (0.15-1.2); Total Protein 6.3 g/dL (6.6-8.7)
[2023-04-10 10:26] LABS: Lipase 60 U/L (13-60)
[2023-04-10 10:33] LABS: Procalcitonin 0.12 ng/mL (0-0.5)
[2023-04-10 11:35] LABS: Glucose Urine UA 1+ (Normal); Protein Urine Trace (Negative); Urine Appearance Clear (CLEAR); Urine Color Yellow (Yellow); pH Urine 5 (5-7)
[2023-04-10 11:36] LABS: Add Urine Microscopic? YES; Bilirubin Urine Neg (Negative); Blood Urine Neg (Negative); Ketones Urine 2+ (Negative); Leukocyte Esterase Urine Negative (Negative); Nitrate Urine Negative (Negative); Urobilinogen Urine Norm (Negative)
[2023-04-10 11:37] LABS: Add Urine Culture? No; Bacteria Urine TRACE /hpf; Mucus Urine 1+ /hpf; WBC Urine 0-4 /hpf (0-5)
--- NOTE | 2023-04-10 11:44 | P.DS_ITS ---
Discharge Providers Date of Admission: 04/10/23 00:57 Date of Discharge: April 10, 2023 Attending Provider at Admission: Dominique Whyte MD Attending Provider at Discharge: Jr Morales MD Primary Care Provider: Ree Mason APN Diagnoses at Discharge Discharge Diagnosis (1) DKA (diabetic ketoacidosis): Status: Acute Reason for Visit Reason for Visit: HIGH BLOOD SUGAR Hospital Course Hospital Course Max Duggan is a 23 year old male with a past medical history of type 1 diabetes mellitus, typically uses Lantus and NovoLog pens at home.? States that yesterday he missed his Lantus 20 units subcutaneously.? Thereafter all day today he has been having nausea vomiting and feeling dehydrated.? Presented to the emergency room with the symptoms, found to have evidence of DKA with blood sugar greater than 500, positive serum ketones and high anion gap metabolic acidosis.? Denies any other symptoms or complaints at this time.? No complaints of chest pain dyspnea palpitations syncope abdominal pain diarrhea. This is a 23-year-old male, who presents to [facility] for diabetic ketoacidosis, managed in the intensive care unit, managed on insulin drip, IV fluids, electrolyte replacement, anion gap closed, electrolytes normalized, bicarb normalized, transition to diabetic diet, transition to subcu insulin, with Lantus, overall tolerated well. On discharge will be discharged on his insulin sliding scale, with his home Lantus 30 units twice daily. Advised to hydrate well, drink plenty of electrolyte balanced fluids. Physical Exam Const: COMMON NORMALS: no acute distress and patient oriented x3 Resp: COMMON NORMALS: normal respiratory effort, No retractions, No use of accessory muscles and clear to auscultation bilaterally AUSCULTATION: clear to auscultation bilaterally Cardio: COMMON NORMALS: regular rate, regular rhythm, S1 normal heart sound present and S2 normal heart sound present RATE: regular rate RHYTHM: regul ar rhythm HEART SOUNDS: S1 normal heart sound present and S2 normal heart sound present GI: COMMON NORMALS: Normal to inspection, nondistended, normoactive bowel sounds present and non-tender Extremity: COMMON NORMALS: no pedal edema Neuro: COMMON NORMALS: patient oriented x3 Psych: COMMON NORMALS: mental status grossly normal Discharge Data Studies Completed and Pending Pending at discharge Category Date Time Status Beta-Hydroxybutyrate Routine Lab 04/09/23 23:10 Received Comprehensive Metabolic Panel Q6H Lab 04/10/23 15:00 Ordered Comprehensive Metabolic Panel Q6H Lab 04/10/23 21:00 Ordered Magnesium AM LABS Lab 04/11/23 04:00 Ordered Venous Blood Gas Stat Lab 04/09/23 23:10 Results US abdomen complete* [id number] Stat Ultrasound 04/10/23 09:46 Ordered Laboratory Results WBC 9.44 10^3/uL (3.29-11.43) 04/09/23 22:55 RBC 5.03 10^6/uL (3.85-5.65) 04/09/23 22:55 Hgb 15.20 g/dL (11.27-16.99) 04/09/23 22:55 Hct 42.9 % (37-53) 04/09/23 22:55 MCV 85.3 fl (82-101) 04/09/23 22:55 MCH 30.2 pg (27-33) 04/09/23 22:55 MCHC 35.4 g/dL (30-55) 04/09/23 22:55 RDW 11.1 % (12.1-15.1) L 04/09/23 22:55 Plt Count 316 10^3/cmm (157-399) 04/09/23 22:55 MPV 9.2 fL (7.4-10.4) 04/09/23 22:55 Neut % (Auto) 75.3 % 04/09/23 22:55 Lymph % (Auto) 20.8 % 04/09/23 22:55 [place] % (Auto) 2.8 % 04/09/23 22:55 Eos % (Auto) 0.2 % 04/09/23 22:55 Baso % (Auto) 0.5 % 04/09/23 22:55 Neut # (Auto) 7.11 10^3/uL (1.8-7.7) 04/09/23 22:55 Lymph # (Auto) 2.0 10^3/uL (0.8-4.8) 04/09/23 22:55 [place] # (Auto) 0.3 10^3/uL (0.2-0.9) 04/09/23 22:55 Eos # (Auto) 0.0 10^3/uL (0.0-0.8) 04/09/23 22:55 Baso # (Auto) 0.1 10^3/uL (0.0-0.1) 04/09/23 22:55 Nucleated RBC % (auto) 0 % 04/09/23 22:55 Nucleated RBCs # 0.0 /100WBC 04/09/23 22:55 Specimen Type Venous 04/09/23 23:10 Tong Test N/a 04/09/23 23:10 VBG pH 7.26 (7.32-7.42) L 04/09/23 23:10 VBG pCO2 46.3 mmHg (41-51) 04/09/23 23:10 VBG pO2 29.8 mmHg (25-40) 04/09/23 23:10 VBG HCO3 21.1 mmol/L (24-28) L 04/09/23 23:10 VBG Base Excess -6.0 mmol/L (-3.0-3.0) L 04/09/23 23:10 VBG Hematocrit 46.3 % (42-52) 04/09/23 23:10 O2 Delivery Device Room air 04/09/23 23:10 FiO2 21.0 % 04/09/23 23:10 [facility] 04/09/23 23:10 [employer] ID [facility] 04/09/23 23:10 Sodium 136 mmol/L (136-145) 04/10/23 08:23 Potassium 3.9 mmol/L (3.5-5.1) 04/10/23 08:23 Chloride 101 mmol/L (98-107) 04/10/23 08:23 Carbon Dioxide 24 mmol/L (22-29) 04/10/23 08:23 Anion Gap 14.9 (5-19) 04/10/23 08:23 BUN 18 mg/dL (6-20) 04/10/23 08:23 Creatinine 0.7 mg/dL (0.7-1.2) 04/10/23 08:23 GFR Calculation 139.8 mL/min (90-130) H 04/10/23 08:23 Glucose 121 mg/dL (65-115) H 04/10/23 08:23 POC Glucose 159 mg/dL (70-110) H 04/10/23 07:20 Estimat Average Glucose 240 04/10/23 03:50 Hemoglobin A1c 10.0 % (4.0-6.0) H 04/10/23 03:50 Calculated Osmolality 285 mOsm/kg (285-295) 04/10/23 08:23 Lactic Acid 3.0 mmol/L (0.5-2.2) H 04/09/23 22:55 Lactic Acid (Sepsis) 2.1 mmol/L (0.5-2.2) 04/10/23 01:19 Calcium 8.7 mg/dL (8.5-10.5) 04/10/23 08:23 Phosphorus 3.8 mg/dL (2.5-4.5) 04/09/23 22:55 Magnesium 1.8 mg/dL (1.7-2.3) 04/10/23 03:50 Total Bilirubin 0.7 mg/dL (0.15-1.2) 04/10/23 08: AST 14 U/L (0-40) 04/10/23 08: ALT 14 U/L (0-41) 04/10/23 08:23 Alkaline Phosphatase 81 U/L (40-130) 04/10/23 08:23 C-Reactive Protein 3.0 mg/L (0.0-4.9) 04/10/23 08: Total Protein 6.3 g/dL (6.6-8.7) L 04/10/23 08: Albumin 3.8 g/dL (3.5-5.2) 04/10/23 08: Globulin 2.5 g/dL (1.3-4.6) 04/10/23 08: Lipase 60 U/L (13-60) 04/10/23 08:23 Procalcitonin 0.12 ng/mL (0-0.5) 04/10/23 08:23 Urine Color Yellow (Yellow) 04/10/23 10:33 Urine Appearance Clear (CLEAR) 04/10/23 10:33 Urine pH 5 (5-7) 04/10/23 10:33 Ur Specific [place] 1.020 (1.005-1.030) 04/10/23 10:33 Urine Protein Trace (Negative) 04/10/23 10:33 Urine Glucose (UA) 1+ (Normal) H 04/10/23 10:33 Urine Ketones 2+ (Negative) H 04/10/23 10:33 Urine Blood Neg (Negative) 04/10/23 10:33 Urine Nitrate Negative (Negative) 04/10/23 10:33 Urine Bilirubin Neg (Negative) 04/10/23 10:33 Urine Urobilinogen Norm mg/dL (Negative) 04/10/23 10:33 Ur Leukocyte Esterase Negative (Negative) 04/10/23 10:33 Urine RBC None /hpf (0-2) 04/10/23 10:33 Urine WBC 0-4 /hpf (0-5) H 04/10/23 10:33 Ur Squamous Epith Cells None /hpf (0-5) 04/10/23 10:33 Amorphous Sediment Not Reportable 04/10/23 10:33 Urine Bacteria Trace /hpf (NONE) 04/10/23 10:33 Urine Mucus 1+ /hpf 04/10/23 10:33 Serum Ketones Positive (Negative) H 04/09/23 22:55 Vitals Last Vital Signs Temp 98.1 F 04/10/23 01:00 Pulse 88 04/10/23 09:10 Resp 22 H 04/10/23 09:10 BP 112/68 04/10/23 09:00 Pulse Ox 98 04/10/23 09:10 O2 Del Method Room Air 04/10/23 09:10 Discharge Plan Discharge Patient Disposition: Home Condition: Stable Prescriptions: Continued (DME) Dexcom G6 Desk Editor Misc See Rx Instructions .Route Qty: 1 0RF Rx Instructions: As directed (DME) Dexcom G6 Sensor Device See Rx Instructions .Route Qty: 3 3RF Rx Instructions: As directed (DME) Dexcom G6 Transmitter Device See Rx Instructions .Route Qty: 1 3RF Rx Instructions: As directed escitalopram oxalate 10 mg tablet 10 mg PO DAILY Qty: 30 0RF (DME) ulnar gutter fast form See Rx Instructions .Route .MEDSUPPLY Qty: 1 0RF Rx Instructions: As directed (DME) V-GO 40 Device See Rx Instructions .Route Qty: 30 0RF Rx Instructions: As directed insulin aspart U-100 [Novolog FlexPen U-100 Insulin] 100 unit/mL (3 mL) insulin pen See Rx Instructions .ROUTE .COMPLEX Qty: 15 0RF Dose Instruction: INJECT TWO UNITS SUBCUTANEOUSLY PER ONE GRAM CARBS THREE TIMES A DAY WITH MEALS AND BLOOD SUGAR CORRECTION UP TO 60 UNITS PER DAY Rx Instructions: INJECT TWO UNITS SUBCUTANEOUSLY PER ONE GRAM CARBS THREE TIMES A DAY WITH MEALS AND BLOOD SUGAR CORRECTION UP TO 60 UNITS PER DAY acetaminophen 500 mg Capsule 1,000 mg PO Q6H PRN (Reason: Pain) Changed Lantus Solostar U-100 Insulin 100 unit/mL (3 mL) insulin pen 30 unit SUBCUT BID Qty: 15 0RF Discharge Orders: Discharge Order (Routine); Ordered 04/10/23 Ordered By: Jr Morales Referrals: Ree Mason APN [Primary Care Provider] - Discharge Diet: Regular Discharge Activity: Resume usual activity Patient Instructions: Diabetic Ketoacidosis (DC), Opioid Safety Activity Restrictions/Additional Instructions: - Please drink plenty of electrolyte balanced fluids, hydrate well ? Follow-up with primary care provider next week Discharge Attestations Time Spent in Discharge Care*: greater than 30 min Quality Metrics Clinical Quality Measures [ No reported AMI, CVA or VTE this stay] Coding Level of Care Code 81070 Total time (in minutes) for Discharge: 45 Diagnoses DKA (diabetic ketoacidosis) E11.10
[2023-04-10 12:48] LABS: Glucose Point of Care 92 mg/dL (70-110)
--- NOTE | 2023-04-10 13:58 | PC.NURSE ---
Patient stated he did not want to wait for ultrasound to scan abdomen, and he would like to leave immediately. Ultrasound contacted to hasten scan, patient still did not want to wait and stated his abdomen didn't hurt anymore. Dr. Morales contacted and is okay with discharging patient without the scan. Patient instructed on change in medication and continued medications, DKA, and importance of follow up with primary provider as well as given written education. Patient verbalized understanding of all teachings. IVs removed, intact, no complications. Patient left with family in personal vehicle.
[2023-04-11 08:36] LABS: Blood Gas Sample Site VENOUS
[2023-04-14 23:35] LABS: Beta-Hydroxybutyrate 5.07 mmol/L
== END 2023-04-10 14:00 | disposition home or self-care (01) | DRG 639 ==
LOC: ER 04-10 00:04 → ICU 04-10 06:28
PROVIDERS: Admitting Provider Student in an Organized Health Care Education/Training Program; Emergency Provider Physician Assistant; PCP Nurse Practitioner Family; Visit Provider Family Medicine
DX: E10.10 Type 1 diabetes mellitus with ketoacidosis without coma (principal); Z79.85 Long-term (current) use of injectable non-insulin antidiabetic drugs; F32.A Depression, unspecified
CPT/HCPCS: 36415; 36416; 80053; 81001; 82009; 82010; 82803; 82962; 83036; 83605; 83690; 83735; 84100; 84145; 85025; 86140; 96365; 96366; 96367; 96372; 96375; 99285; J1815; J2765; J7030; J7042; J7050

== ENCOUNTER 2024-05-07 23:59 | Inpatient (IN) | payer SELFPAY ==
[2024-05-08] VITALS (8 sets, daily range): BP systolic 118–147; BP diastolic 72–87; PULSE 92–110; RESP 14–18; TEMP 36.4–36.9; O2SAT 97–99; BMI 17.8
[2024-05-08 00:28] LABS: Basophils # 0.1 10^3/uL (0.0-0.1); Basophils % 0.5 %; Eosinophils # 0.1 10^3/uL (0.0-0.8); Eosinophils % 0.8 %; Hematocrit 40.1 % (37-53); Lymphocytes # 2.9 10^3/uL (0.8-4.8); Lymphocytes % 28.7 %; Mean Corpuscular HGB Conc 35.4 g/dL (30-55); Mean Corpuscular Volume 84.8 fl (82-101); Mean Platelet Volume 8.8 fL (7.4-10.4); Monocytes # 0.6 10^3/uL (0.2-0.9); Monocytes % 5.7 %; Neutrophils # 6.46 10^3/uL (1.8-7.7); Neutrophils % 63.8 %; Nucleated Red Blood Cells % 0 %; Platelet Count 270 10^3/cmm (157-399); Red Blood Count 4.73 10^6/uL (3.85-5.65); Red Cell Distribution Width 11.3 % (12.1-15.1); White Blood Count 10.13 10^3/uL (3.29-11.43)
--- NOTE | 2024-05-08 00:28 | ED.C_ITS ---
Documented by User: KOREY Olsen 05/08/24 00:52 HPI - Psych 2 General: Chief Complaint: Psychiatric Symptoms Stated Complaint: SI Time Seen by Provider: 05/08/24 00:03 Source: patient Mode of arrival: EMS Limitations: no limitations History of Present Illness: Patient is a 24-year-old male with past medical history of type 1 diabetes and depression who presents the emergency department by ambulance due to suicide attempt onset tonight. Patient took unknown amount of Busbar, of which she subsequently threw back up into the pill bottle. He states he has had a lot of little things happen recently that caused him to commit suicide tonight, and he does confirm that this was not an attempt to kill himself. He denies any previous suicide attempts. He states that his mom found him throwing up the pills, and [id number] who brought the patient in for evaluation. He denies ever seeing a psychiatrist, reviewing his med list it appears that he does not take BuSpar prescribed, only escitalopram. Also of note he had a second bottle of Paxil that he planned on taking as well. He states he feels fine at this time, no symptoms other than his chronic depression. He is tearful, his vitals are normal. He denies any homicidal ideations, hallucinations, drug use, or other symptoms. MD complaint: suicidal ideation and feels depressed History of same: Yes Associated symptoms: Reports depression and suicidal ideation; Deny auditory hallucinations, visual hallucinations or homicidal ideation Treatments prior to arrival: none If self harm: admits thoughts of self harm, has plan, has acted on plan and intentional overdose Details of plan: Attempted to overdose on BuSpar and paroxetine Related Data Home Medications Medication Instructions Recorded Confirmed acetaminophen 500 mg capsule 1,000 mg PO Q6H PRN Pain 04/10/23 05/08/24 insulin aspart U-100 100 unit/mL 2 unit SUBCUT TIDWM 05/08/24 05/08/24 (3 mL) subcutaneous pen (Novolog FlexPen U-100 Insulin aspart) insulin glargine 100 unit/mL (3 64 unit SUBCUT DAILY 05/08/24 05/09/24 mL) subcutaneous pen (Lantus Solostar U-100 Insulin) Previous Rx's Medication Instructions Recorded blood-glucose meter,continuous #1 ea 02/13/21 (Dexcom G6 Senior C Web Developer) blood-glucose sensor (Dexcom G6 #3 ea 02/13/21 Sensor device) blood-glucose transmitter (Dexcom #1 ea 02/13/21 G6 Transmitter device) sub-q insulin device, 40 unit #30 ea 02/04/22 (V-GO 40 device) ulnar gutter fast form #1 ea 08/04/22 Allergies Allergy/AdvReac Type Severity Reaction Status Date / Time No Known Allergies Allergy Verified 04/09/23 22:49 Review of Systems 2 General: Reports: 10 or more systems reviewed and unremarkable except in HPI and below Const: Denies: fever(s), chills or fatigue Eyes: Denies: change in vision ENMT: Denies: throat pain, ear or mastoid pain or nasal discharge Card: Denies: chest pain, palpitations, swelling of feet/ankles or lightheadedness Resp: Denies: dyspnea, productive cough or wheezing GI: Denies: abdominal pain, nausea, vomiting, diarrhea or constipation : Denies: flank pain, difficulty urinating, dysuria or urinary frequency Musc: Denies: neck pain, back pain or joint pain Skin/Breast: Denies: rash Neuro: Denies: headache(s), numbness in extremities or weakness in extremities Psych: Reports: anxiety, depression, suicidal ideation and other (Intentional overdose); Denies: visual hallucinations, auditory hallucinations, tactile hallucinations or homicidal ideation PFSH ED 2 PFSH: Medical History Non-compliance DKA (diabetic ketoacidosis) Hyperglycemia Depression Long-term insulin use Hypoglycemic insulin reaction in type 1 diabetes mellitus Type 1 diabetes mellitus Diabetes Surgical History History of dental surgery Family History Father No problems noted. Mother No problems noted. Other CAD (coronary artery disease) Social History Smoking and tobacco/nicotine status: never used tobacco/nicotine Alcohol intake: never Substance/Drug Use: never Housing: House Physical Exam 2 Const: COMMON NORMALS: no acute distress, patient oriented x3 and no limitations GENERAL APPEARANCE: cooperative, well developed and anxious (Tearful) ORIENTATION/CONSCIOUSNESS: Yes awake, Yes oriented to person, Yes oriented to place and Yes oriented to time HENMT: COMMON NORMALS: normocephalic, atraumatic and hearing grossly normal bilaterally HEAD & SCALP: normocephalic and atraumatic Eye: COMMON NORMALS: Equal, round and reactive pupils present, EOMs intact bilaterally and conjunctivae normal CONJUNCTIVA: Yes conjunctivae normal P UPIL: Yes Equal, round and reactive pupils present Neck/C-Spine: COMMON NORMALS: full ROM, supple and no JVD Resp: COMMON NORMALS: normal respiratory effort, No retractions, No use of accessory muscles and clear to auscultation bilaterally AUSCULTATION: clear to auscultation bilaterally Cardio: COMMON NORMALS: no JVD, regular rate, regular rhythm, No clicks present (Cardio), No murmurs present (Cardio) and No rub (Cardio) RATE: r egular rate RHYTHM: regular rhythm GI: COMMON NORMALS: Normal to inspection, nondistended, normoactive bowel sounds present, Soft to palpation and non-tender AUSCULTATION: Yes normoactive bowel sounds PALPATION: Yes Soft to palpation RECTAL EXAM: Yes deferred Extremity: COMMON NORMALS: normal to inspection, full ROM and capillary refill normal Neuro: COMMON NORMALS: patient oriented x3, CN's II-XII intact bilaterally, moves all extremities, no focal motor deficits and no sensory deficits noted SENSORIUM/ORIENTATION: Yes oriented to person, Yes oriented to place and Yes oriented to time Psych: COMMON NORMALS: mental status grossly normal and Normal thought process present APPEARANCE: Yes grossly normal ATTITUDE: Yes calm A CTIVITY/MOTOR BEHAVIOR: Yes Avoids eye contact (attititude/behavior) SPEECH: Yes soft MOOD & AFFECT: Yes tearful THOUGHT PROCESS: Normal thought process present THOUGHT CONTENT: Yes Suicidality present, No Homicidality present and No Hallucination(s) present ATTENTION/CONCENTRATION: Yes attention grossly intact Skin: COMMON NORMALS: no rashes or lesions noted GENERAL SKIN EXAM: no rashes or lesions noted Course 2 Vital Signs: Vital signs: Vital Signs Temperature 98.9 F 05/09/24 19:45 Pulse Rate 95 05/09/24 19:45 Respiratory Rate 16 05/09/24 19:45 Blood Pressure 132/88 05/09/24 19:45 Pulse Oximetry 98 05/09/24 19:45 Oxygen Delivery Me thod Room Air 05/09/24 19:45 MDM - Psych Medical Decision Making Poison control was contacted in regards to patient's intake of BuSpar, approximately 5 to 10 pills that were regurgitated. They had no further recommendations other than basic prepsychiatric lab work, and noted that the most common side effect would be GI upset or some lethargy. Patient did not have complaints of stomach pain or nausea/vomiting, did state that he felt a little tired. Patient was well out of the range of the 40-minute range that poison control had stated toxicity would be present in an overdose. There are labs pending at this time, care of patient transferred to Dr. Oh. Lab Data 05/08/24 00:20 05/08/24 00:20 Laboratory Results WBC 10.13 10^3/uL (3.29-11.43) 05/08/24 00:20 RBC 4.73 10^6/uL (3.85-5.65) 05/08/24 00:20 Hgb 14.20 g/dL (11.27-16.99) 05/08/24 00:20 Hct 40.1 % (37-53) 05/08/24 00:20 MCV 84.8 fl (82-101) 05/08/24 00:20 MCH 30.0 pg (27-33) 05/08/24 00:20 MCHC 35.4 g/dL (30-55) 05/08/24 00:20 RDW 11.3 % (12.1-15.1) L 05/08/24 00:20 Plt Count 270 10^3/cmm (157-399) 05/08/24 00:20 MPV 8.8 fL (7.4-10.4) 05/08/24 00:20 Neut % (Auto) 63.8 % 05/08/24 00:20 Lymph % (Auto) 28.7 % 05/08/24 00:20 Stark % (Auto) 5.7 % 05/08/24 00:20 Eos % (Auto) 0.8 % 05/08/24 00:20 Baso % (Auto) 0.5 % 05/08/24 00:20 Neut # (Auto) 6.46 10^3/uL (1.8-7.7) 05/08/24 00:20 Lymph # (Auto) 2.9 10^3/uL (0.8-4.8) 05/08/24 00:20 Stark # (Auto) 0.6 10^3/uL (0.2-0.9) 05/08/24 00:20 Eos # (Auto) 0.1 10^3/uL (0.0-0.8) 05/08/24 00:20 Baso # (Auto) 0.1 10^3/uL (0.0-0.1) 05/08/24 00:20 Nucleated RBC % (auto) 0 % 05/08/24 00:20 Nucleated RBCs # 0.0 /100WBC 05/08/24 00:20 Sodium 139 mmol/L (136-145) 05/08/24 00:20 Potassium 4.4 mmol/L (3.5-5.1) 05/08/24 00:20 Chloride 101 mmol/L (98-107) 05/08/24 00:20 Carbon Dioxide 28 mmol/L (22-29) 05/08/24 00:20 Anion Gap 14.4 (5-19) 05/08/24 00:20 BUN 12 mg/dL (6-20) 05/08/24 00:20 Creatinine 0.8 mg/dL (0.7-1.2) 05/08/24 00:20 GFR Calculation 118.8 mL/min (90-130) 05/08/24 00:20 Glucose 405 mg/dL (65-115) H 05/08/24 00:20 POC Glucose 144 mg/dL (70-110) H 05/08/24 03:33 Calculated Osmolality 305 mOsm/kg (285-295) H 05/08/24 00:20 Calcium 9.1 mg/dL (8.5-10.5) 05/08/24 00:20 Total Bilirubin 0.5 mg/dL (0.15-1.2) 05/08/24 00:20 AST 14 U/L (0-40) 05/08/24 00:20 ALT 13 U/L (0-41) 05/08/24 00:20 Alkaline Phosphatase 113 U/L (40-130) 05/08/24 00:20 Total Protein 7.0 g/dL (6.6-8.7) 05/08/24 00:20 Albumin 4.2 g/dL (3.5-5.2) 05/08/24 00:20 Globulin 2.8 g/dL (1.3-4.6) 05/08/24 00:20 Salicylates < 0.3 mg/dL (3-10) L 05/08/24 00:20 Urine Opiates Screen Negative ng/mL (Negative) 05/08/24 00:42 Acetaminophen < 5.0 ug/mL (10-30) L 05/08/24 00:20 Ur Barbiturates Screen Negative ng/mL (Negative) 05/08/24 00:42 Ur Phencyclidine Scrn Negative ng/mL (Negative) 05/08/24 00:42 Ur Amphetamines Screen Negative ng/mL (Negative) 05/08/24 00:42 U Benzodiazepines Scrn Negative ng/mL (Negative) 05/08/24 00:42 Urine Cocaine Screen Negative ng/mL (Negative) 05/08/24 00:42 U Marijuana (THC) Screen Positive ng/mL (Negative) H 05/08/24 00:42 Ethyl Alcohol < 10 mg/dL (0-10) 05/08/24 00:20 No radiology studies performed this visit Discharge Plan Discharge Patient Disposition: Admitted As Inpatient Admit Provider: Willie Watson Clinical Impression: Intentional overdose Condition: Stable Coding Level of Care Code ED Drafter Assistant for Chg Fwd Documented by User: Olman Oh DO 05/09/24 20:31 HPI - Psych 2 General: Chief Complaint: Psychiatric Symptoms Stated Complaint: SI Time Seen by Provider: 05/08/24 00:03 Related Data Home Medications Medication Instructions Recorded Confirmed acetaminophen 500 mg capsule 1,000 mg PO Q6H PRN Pain 04/10/23 05/08/24 insulin aspart U-100 100 unit/mL 2 unit SUBCUT TIDWM 05/08/24 05/08/24 (3 mL) subcutaneous pen (Novolog FlexPen U-100 Insulin aspart) insulin glargine 100 unit/mL (3 64 unit SUBCUT DAILY 05/08/24 05/09/24 mL) subcutaneous pen (Lantus Solostar U-100 Insulin) Previous Rx's Medication Instructions Recorded blood-glucose meter,continuous #1 ea 02/13/21 (Dexcom G6 Senior C Web Developer) blood-glucose sensor (Dexcom G6 #3 ea 02/13/21 Sensor device) blood-glucose transmitter (Dexcom #1 ea 02/13/21 G6 Transmitter device) sub-q insulin device, 40 unit #30 ea 02/04/22 (V-GO 40 device) ulnar gutter fast form #1 ea 08/04/22 Allergies Allergy/AdvReac Type Severity Reaction Status Date / Time No Known Allergies Allergy Verified 04/09/23 22:49 PFSH ED 2 PFSH: Medical History Non-compliance DKA (diabetic ketoacidosis) Hyperglycemia Depression Long-term insulin use Hypoglycemic insulin reaction in type 1 diabetes mellitus Type 1 diabetes mellitus Diabetes Surgical History History of dental surgery Family History Father No problems noted. Mother No problems noted. Other CAD (coronary artery disease) Social History Smoking and tobacco/nicotine status: never used tobacco/nicotine Alcohol intake: never Substance/Drug Use: never Housing: House Course 2 Vital Signs: Vital signs: Vital Signs Temperature 98.9 F 05/09/24 19:45 Pulse Rate 95 05/09/24 19:45 Respiratory Rate 16 05/09/24 19:45 Blood Pressure 132/88 05/09/24 19:45 Pulse Oximetry 98 05/09/24 19:45 Oxygen Delivery Me thod Room Air 05/09/24 19:45 MDM - Psych Medical Decision Making Poison control was contacted in regards to patient's intake of BuSpar, approximately 5 to 10 pills that were regurgitated. They had no further recommendations other than basic prepsychiatric lab work, and noted that the most common side effect would be GI upset or some lethargy. Patient did not have complaints of stomach pain or nausea/vomiting, did state that he felt a little tired. Patient was well out of the range of the 40-minute range that poison control had stated toxicity would be present in an overdose. There are labs pending at this time, care of patient transferred to Dr. Oh. This patient was originally seen by Mr. Sandi PA-C.? I agree with his history, evaluation, and treatment. Patient checked out to me at shift change. Blood glucose was 405. Anion gap is normal. He is not acidotic. He is treated with regular insulin. His other laboratory is not remarkable. Medically he is otherwise stable. Affidavits have been written. He will go to [facility] if psychiatry agrees. Lab Data 05/08/24 00:20 05/08/24 00:20 Laboratory Results WBC 10.13 10^3/uL (3.29-11.43) 05/08/24 00:20 RBC 4.73 10^6/uL (3.85-5.65) 05/08/24 00:20 Hgb 14.20 g/dL (11.27-16.99) 05/08/24 00:20 Hct 40.1 % (37-53) 05/08/24 00:20 MCV 84.8 fl (82-101) 05/08/24 00:20 MCH 30.0 pg (27-33) 05/08/24 00:20 MCHC 35.4 g/dL (30-55) 05/08/24 00:20 RDW 11.3 % (12.1-15.1) L 05/08/24 00:20 Plt Count 270 10^3/cmm (157-399) 05/08/24 00:20 MPV 8.8 fL (7.4-10.4) 05/08/24 00:20 Neut % (Auto) 63.8 % 05/08/24 00:20 Lymph % (Auto) 28.7 % 05/08/24 00:20 Stark % (Auto) 5.7 % 05/08/24 00:20 Eos % (Auto) 0.8 % 05/08/24 00:20 Baso % (Auto) 0.5 % 05/08/24 00:20 Neut # (Auto) 6.46 10^3/uL (1.8-7.7) 05/08/24 00:20 Lymph # (Auto) 2.9 10^3/uL (0.8-4.8) 05/08/24 00:20 Stark # (Auto) 0.6 10^3/uL (0.2-0.9) 05/08/24 00:20 Eos # (Auto) 0.1 10^3/uL (0.0-0.8) 05/08/24 00:20 Baso # (Auto) 0.1 10^3/uL (0.0-0.1) 05/08/24 00:20 Nucleated RBC % (auto) 0 % 05/08/24 00:20 Nucleated RBCs # 0.0 /100WBC 05/08/24 00:20 Sodium 139 mmol/L (136-145) 05/08/24 00:20 Potassium 4.4 mmol/L (3.5-5.1) 05/08/24 00:20 Chloride 101 mmol/L (98-107) 05/08/24 00:20 Carbon Dioxide 28 mmol/L (22-29) 05/08/24 00:20 Anion Gap 14.4 (5-19) 05/08/24 00:20 BUN 12 mg/dL (6-20) 05/08/24 00:20 Creatinine 0.8 mg/dL (0.7-1.2) 05/08/24 00:20 GFR Calculation 118.8 mL/min (90-130) 05/08/24 00:20 Glucose 405 mg/dL (65-115) H 05/08/24 00:20 POC Glucose 144 mg/dL (70-110) H 05/08/24 03:33 Calculated Osmolality 305 mOsm/kg (285-295) H 05/08/24 00:20 Calcium 9.1 mg/dL (8.5-10.5) 05/08/24 00:20 Total Bilirubin 0.5 mg/dL (0.15-1.2) 05/08/24 00:20 AST 14 U/L (0-40) 05/08/24 00:20 ALT 13 U/L (0-41) 05/08/24 00:20 Alkaline Phosphatase 113 U/L (40-130) 05/08/24 00:20 Total Protein 7.0 g/dL (6.6-8.7) 05/08/24 00:20 Albumin 4.2 g/dL (3.5-5.2) 05/08/24 00:20 Globulin 2.8 g/dL (1.3-4.6) 05/08/24 00:20 Salicylates < 0.3 mg/dL (3-10) L 05/08/24 00:20 Urine Opiates Screen Negative ng/mL (Negative) 05/08/24 00:42 Acetaminophen < 5.0 ug/mL (10-30) L 05/08/24 00:20 Ur Barbiturates Screen Negative ng/mL (Negative) 05/08/24 00:42 Ur Phencyclidine Scrn Negative ng/mL (Negative) 05/08/24 00:42 Ur Amphetamines Screen Negative ng/mL (Negative) 05/08/24 00:42 U Benzodiazepines Scrn Negative ng/mL (Negative) 05/08/24 00:42 Urine Cocaine Screen Negative ng/mL (Negative) 05/08/24 00:42 U Marijuana (THC) Screen Positive ng/mL (Negative) H 05/08/24 00:42 Ethyl Alcohol < 10 mg/dL (0-10) 05/08/24 00:20 Discharge Plan Discharge Patient Disposition: Admitted As Inpatient Admit Provider: Willie Watson Clinical Impression: Intentional overdose Condition: Stable Coding Level of Care Code ED Drafter Assistant for Porsha Diez
--- NOTE | 2024-05-08 00:33 | PC.NURSE ---
Poison control contacted. Per poison control, med is well tolerated. No treatment protocol other than normal tox screen. Pt is in NAD. Will continue to monitor.
[2024-05-08 00:49] LABS: Alanine Aminotransferase 13 U/L (0-41); Albumin Level 4.2 g/dL (3.5-5.2); Alkaline Phosphatase 113 U/L (40-130); Anion Gap 14.4 (5-19); Aspartate Amino Transferase 14 U/L (0-40); Blood Urea Nitrogen 12 mg/dL (6-20); Calcium 9.1 mg/dL (8.5-10.5); Carbon Dioxide 28 mmol/L (22-29); Chloride 101 mmol/L (98-107); Creatinine Clr Calc Pharmacy 123.3205; Globulin 2.8 g/dL (1.3-4.6); Glomerular Filtration Rate 118.8 mL/min (90-130); Glucose 405 mg/dL (65-115); Osmolality Calculated 305 mOsm/kg (285-295); Potassium 4.4 mmol/L (3.5-5.1); Sodium 139 mmol/L (136-145); Total Bilirubin 0.5 mg/dL (0.15-1.2)
[2024-05-08 00:56] LABS: Acetaminophen < 5.0 ug/mL (10-30); Alcohol Level < 10 mg/dL (0-10); Salicylate < 0.3 mg/dL (3-10)
[2024-05-08 00:56] LABS: Amphetamines Screen Urine Negative (Negative); Barbiturates Screen Urine Negative (Negative); Benzodiazepines Screen Urine Negative (Negative); Cocaine Screen Urine Negative (Negative); Opiate Screen Urine Negative (Negative); PCP Screen Urine Negative (Negative); THC Screen Urine Positive (Negative)
--- NOTE | 2024-05-08 01:29 | PC.NURSE ---
[facility] Pt served with copy of 96 by this RN and security. Pt A&Ox3, denied further questions. Pt stated that he had not been admitted to a psych facility in the past.
[2024-05-08] MEDS: insulin lispro 100 unit/1 mL 10 UNIT SUBCUT (01:38)
--- NOTE | 2024-05-08 02:37 | PC.NURSE ---
Poison control updated at this time. Pt resting comfortably in NAD.
[2024-05-08 03:37] LABS: Glucose Point of Care 144 mg/dL (70-110)
[2024-05-08 06:21] LABS: Glucose Point of Care 118 mg/dL (70-110)
[2024-05-08 07:29] LABS: Glucose Point of Care 144 mg/dL (70-110)
[2024-05-08] MEDS: insulin lispro 100 unit/1 mL SUBCUT ×3 (07:50→17:15)
--- NOTE | 2024-05-08 11:13 | W.PM.NPUH&PS ---
Providers/Chief Complaint Admitting Physician: Willie Watson MD Primary Care Provider: Ree Mason APN Chief Complaint: SI HPI NPU History of Present Illness Max Duggan is a 24 year old male who presented to the emergency department with the following report: Chief Complaint: Psychiatric Symptoms Stated Complaint: SI Time Seen by Provider: 05/08/24 00:03 Source: patient Mode of arrival: EMS Limitations: no limitations History of Present Illness: Patient is a 24-year-old male with past medical history of type 1 diabetes and depression who presents the emergency department by ambulance due to suicide attempt onset tonight. Patient took unknown amount of Busbar, of which she subsequently threw back up into the pill bottle. He states he has had a lot of little things happen recently that caused him to commit suicide tonight, and he does confirm that this was not an attempt to kill himself. He denies any previous suicide attempts. He states that his mom found him throwing up the pills, and [id number] who brought the patient in for evaluation. He denies ever seeing a psychiatrist, reviewing his med list it appears that he does not take BuSpar prescribed, only escitalopram. Also of note he had a second bottle of Paxil that he planned on taking as well. He states he feels fine at this time, no symptoms other than his chronic depression. He is tearful, his vitals are normal. He denies any homicidal ideations, hallucinations, drug use, or other symptoms. MD complaint: suicidal ideation and feels depressed History of same: Yes Associated symptoms: Reports depression and suicidal ideation; Deny auditory hallucinations, visual hallucinations or homicidal ideation Treatments prior to arrival: none If self harm: admits thoughts of self harm, has plan, has acted on plan and intentional overdose Details of plan: Attempted to overdose on BuSpar and paroxetine. He was admitted to the neuropsychiatric unit for definitive treatment of those issues. He is unknown to inpatient or outpatient services at [facility] psychiatry. He has been on medication but reports that it has been ineffective. He presents today reporting: Chief complaint Overdose on multiple medications following an argument with mother. History of the present complaint The patient, born on 2000, reports not taking her prescribed anxiety medication, Buspar, regularly as she feels it has not been effective. She has been prescribed Buspar for approximately six months to a year. She previously took Lexapro, also prescribed by her primary care doctor, but discontinued it for the same reason. The patient describes a recent incident that led to her hospital visit. She had an argument with her mother, the details of which she cannot recall. In a moment of distress, she went to the kitchen, took a handful of migraine pills, and ingested them. She spat out a significant amount because they gagged her. Her mother, hearing the commotion, entered her room, leading to a confrontation. The patient then left the house, feeling the need to escape the situation. Her mother found her, picked her up, and took her to the ambulance station, from where she was brought to the hospital. The patient has never been to a psychiatric hospital before and has not received any mental health treatment, despite being set up to see a therapist in the past. She did not follow through due to the long waiting time. She has no history of self-injurious behavior, such as cutting or burning herself, and has never acted on suicidal thoughts before the recent incident. The patient reports a long-standing history of depression, feeling sad and empty most of the time. She experiences fluctuating sleep patterns, sometimes not sleeping at all and other times sleeping excessively. Her energy levels are generally low when she is depressed. She has had passive wishes, feeling that it would be fine if she did not wake up the next day, but has never actively wanted to kill herself. She describes her anxiety as making her feel very angry and overwhelmed, though it does not involve constant what if scenarios or paranoia. She does not experience hallucinations or paranoia. The patient has a history of nightmares and flashbacks, which occur regularly. She does not have intrusive thoughts that compel her to act in certain ways. She has never been diagnosed with ADHD but feels that she has difficulty following through on tasks and exhibits impulsivity. The patient has a family history of addiction on her mother's side but no known family history of mental health issues or suicide attempts. She was diagnosed with type 1 diabetes at the age of [age] and had a 504 plan in school to manage her condition. She has no other significant medical history or surgeries, except for a broken collarbone as a child. The patient identifies as bisexual and has had a three-year relationship, which ended recently. She lives with her mother and siblings in a house and works at a [employer]. She has experienced challenges with her sexuality, particularly within her family, who are Faith and have difficulty accepting it. She feels that her relationship with her mother is strained, particularly due to her mother's relationship with a man who previously caused her mother significant distress. The patient reports that her current living situation is not ideal but feels she has no other family to turn to. She expresses gratitude for her mother's support but also frustration with their relationship dynamics. She acknowledges that living with her mother provides some financial and emotional stability, despite the challenges. Were you seeing me or is the doctor well I'm the doctor but I'm I'm I'm moving along I'm waiting for Doctor Alec well I'm Doctor Walter but yeah yeah where is my boy Panky there's Pinky of the hanky type there's Max at the non banking table who presented to the emergency department with the following report: He was admitted to the neuropsychiatric unit for definitive treatment of those issues she was admitted he was admitted to the neuropsychiatric unit for definitive treatment of those issues. His unknown to inpatient or outpatient services at [facility]. He has been on mediation that reports that it has been ineffective. He presents today reporting: Mental health history Diagnosed with anxiety and depression, with symptoms reportedly starting in later teenage years. Has been prescribed Buspar for anxiety but has not been taking it regularly due to perceived ineffectiveness. Previously took Lexapro before Buspar, also found it ineffective. No prior psychiatric hospitalizations or therapy sessions, although an appointment was set up in the past but not attended. Reports a history of passive wishes but denies active suicidal ideation or attempts until the recent incident. No history of self-injurious behavior. Experiences anxiety characterized by feelings of anger and being overwhelmed, without paranoia or hallucinations. Reports nightmares and flashbacks regularly. No family history of mental health issues known, but maternal side has a history of addiction. Social history Lives with mother and three younger half-siblings in a house. Works at the [employer]. Previously worked at a [email or web address] and at [employer] for 4.5 years. No college education but certified to work at a [employer]. Identifies as bisexual. Longest relationship lasted three years, currently not in a relationship. No children. No service. Family is Faith, but unsure about personal judaism beliefs. Vapes since age 19 (2019). Social alcohol and cannabis use, started in 2019. No other drug use. No history of legal problems except a booking for a failure to appear on a speeding ticket. Diagnosed with type 1 diabetes at age [age], currently not well-managed. No pets except an outside dog belonging to her brother. Meds NPU Home Medications Medication Instructions Recorded Confirmed Last Taken Type blood-glucose meter,continuous #1 ea 02/13/21 04/10/23 Unknown Rx (Dexcom G6 Skills Auditor) blood-glucose sensor (Dexcom G6 #3 ea 02/13/21 04/10/23 Unknown Rx Sensor device) blood-glucose transmitter (Dexcom #1 ea 02/13/21 04/10/23 Unknown Rx G6 Transmitter device) sub-q insulin device, 40 unit #30 ea 02/04/22 04/10/23 Unknown Rx (V-GO 40 device) ulnar gutter fast form #1 ea 08/04/22 04/10/23 Unknown Rx acetaminophen 500 mg capsule 1,000 mg PO Q6H PRN Pain 04/10/23 05/08/24 04/09/23 History insulin aspart U-100 100 unit/mL 2 unit SUBCUT TIDWM 05/08/24 05/08/24 Unknown History (3 mL) subcutaneous pen (Novolog FlexPen U-100 Insulin aspart) insulin glargine 100 unit/mL (3 64 unit SUBCUT BID 05/08/24 05/08/24 Unknown History mL) subcutaneous pen (Lantus Solostar U-100 Insulin) Allergies Allergy/AdvReac Type Severity Reaction Status Date / Time No Known Allergies Allergy Verified 04/09/23 22:49 PFSH NPU PFSH: Medical History Non-compliance DKA (diabetic ketoacidosis) Hyperglycemia Depression Long-term insulin use Hypoglycemic insulin reaction in type 1 diabetes mellitus Type 1 diabetes mellitus Diabetes Surgical History History of dental surgery Family History Father No problems noted. Mother No problems noted. Other CAD (coronary artery disease) Social History Smoking and tobacco/nicotine status: never used tobacco/nicotine Alcohol intake: never Substance/Drug Use: never Housing: House Mental Status Exam MSE Comments: This is a tall slender white male in hospital scrubs with adequate grooming and eye contact. No abnormal movements except for mild psychomotor retardation. Cooperative with exam and mild to moderate distress. Speech was decreased rate and volume. Mood described as anxious and depressed, affect congruent and tearful. Thought process organized. Thought content: Patient denied suicidal or homicidal ideation, there were no delusions reported or noted, he denied any auditory or visual hallucinations. Reports a passive wish, expressing that if they didn't wake up, it would be fine, but denies any active suicidal ideation or intent to harm themselves. Describes feeling very angry and overwhelmed when anxious, with anxiety being sporadic and not occurring every day. Reports feeling sad and empty, with depression impacting their desire to engage in activities. Describes a cycle of insomnia and hypersomnia, with some nights of no sleep and some days of excessive sleep. Stressors include family dynamics and relationship with mother, as well as the recent of a friend in May 2023. Mood is described as better than before, but still impacted by depression. Attention and concentration were intact and memory appeared mostly reliable but no more formally tested. He is alert and oriented x 3. Insight and judgment are limited and impulse control is impaired. Vitals/I&O/Wt Last Vital Signs Temp 97.5 F L 05/08/24 06:00 Pulse 99 05/08/24 06:00 Resp 18 05/08/24 06:00 BP 118/85 05/08/24 06:00 Pulse Ox 99 05/08/24 06:00 O2 Del Method Room Air 05/08/24 06:17 Weight last 48 hrs Weight 61.235 kg Data NPU 05/08/24 00:20 05/08/24 00:20 A&P Assessment and plan (1) Depression: Qualifiers: Depression Type: major depressive disorder Major depression recurrence: recurrent Active/Remission status: currently active Major depression episode severity: mild Qualified Code(s): F33.0 - Major depressive disorder, recurrent, mild (2) Type 1 diabetes mellitus: Qualifiers: Diabetes mellitus complication status: with hyperglycemia Qualified Code(s): E10.65 - Type 1 diabetes mellitus with hyperglycemia (3) PTSD (post-traumatic stress disorder): (4) Anxiety: Plan This is a 24-year-old white male with a significant history of trauma, depression, anxiety but limited mental health treatment presents today after having an intentional overdose. The patient is experiencing significant anxiety and depression, which have been persistent since their teenage years. The anxiety is described as sporadic, often triggered by overwhelming situations, and is associated with feelings of anger and discomfort. The depression is characterized by feelings of sadness, emptiness, and a lack of interest in activities, along with sleep disturbances and low energy. The patient has a history of passive wishes but denies any active suicidal ideation or self-injurious behavior prior to the recent incident. The recent overdose incident appears to be an impulsive act rather than a premeditated attempt at self-harm, and the patient expresses regret and a desire not to repeat such behavior. There is no history of psychiatric hospitalization or consistent mental health treatment, although the patient has been prescribed Buspar for anxiety, which they have not been taking regularly. The patient also reports a history of trauma, including a recent significant loss of a friend, which may be contributing to their current mental health state. 1. Continue current medications. We will initiate propranolol 20 mg p.o. 3 times daily as needed and consider a scheduled antidepressant/antianxiety medication. 2. Continue every 15 minute checks for safety. 3. Encourage individual, group and milieu therapy. 4. Encourage sober living treatment after discharge at the highest level of care to which he is willing to commit. 5. Obtain collateral information. Involuntary Hold Information 96 Hour Hold: 96 Hour Involuntary Admission: Yes 96 Hour Hold Ending Date: 05/12/24 96 Hour Hold Ending Time: 00:30 Other Hold: Hold End Date: 05/12/24 Attestations NPU Medical Necessity Statement*: Inpatient hospitalization is medically necessary and the clinically appropriate intervention at this time. We we will monitor/initiate medications and make changes as indicated. She will be in the hospital for over 2 midnights. Likely length of stay 3-5 days. Coding Level of Care Code Acute Code for Chg Fwd Diagnoses Mild episode of recurrent major depressive disorder F33.0 Depression Type: major depressive disorder Major depression recurrence: recurrent Active/Remission status: currently active Major depression episode severity: mild Type 1 diabetes mellitus E10.65 Diabetes mellitus complication status: with hyperglycemia PTSD (post-traumatic stress disorder) F43.10 Anxiety F41.9
[2024-05-08 11:52] LABS: Glucose Point of Care 292 mg/dL (70-110)
--- NOTE | 2024-05-08 16:16 | PC.NURSE ---
Patient approached the nurses' station and when this RN asked him what I could do for him he began crying and asking when the doctor would see him because he wanted to leave. The patient's mother was also speaking to another RN at the time demanding for him to be released from his 96 hour hold. It was explained to both the patient and his mother that it was necessary for him to stay here as part of his treatment because he presented a harm to himself. The patient stated, this is making it worse. I never would've done anything stupid if I'd have known I'd be here. This RN offered to let him move rooms multiple times as he had reported to a GAS USAGE METER CLERK that his roommate was making him uncomfortable. However, he refused the offer. This RN also offered anxiety medication to him and he also refused this. He was encouraged to go to group therapy and do something therapeutic, such as read a book or draw, but he refused this as well.
[2024-05-08 17:05] LABS: Glucose Point of Care 148 mg/dL (70-110)
[2024-05-08 19:53] LABS: Glucose Point of Care 92 mg/dL (70-110)
[2024-05-08] MEDS: trazodone 50 mg Tablet PO (20:26)
[2024-05-09 06:00] VITALS: BP 101/63; PULSE 89; RESP 12; TEMP 36.6; O2SAT 96
[2024-05-09 07:08] LABS: Glucose Point of Care 253 mg/dL (70-110)
[2024-05-09] MEDS: insulin lispro 100 unit/1 mL SUBCUT ×3 (09:26→20:24)
[2024-05-09 11:18] LABS: Glucose Point of Care 333 mg/dL (70-110)
[2024-05-09] MEDS: insulin glargine 100 units/1 mL 64 UNIT SUBCUT (11:40)
--- NOTE | 2024-05-09 13:35 | P.NPUPN_ITS ---
Subjective NPU 2 Subjective: Patient presented today reporting that he is doing horribly because he is here. He spent the entirety of his interview and the day and for the most part lamenting about when he might be discharged without being here his worst and being at home. He continued to discuss the importance of him being able to adapt to different to different situations. We discussed the importance of him acknowledging what he did and that we need to have a plan for him not dealing with stressful situations in a similar way. He has been somewhat resistant to starting an antidepressant but continues to be in significant distress per staff reports and direct observation. Mental Status Exam 2 MSE Comments: This is a tall slender white male in hospital scrubs with adequate grooming and eye contact. No abnormal movements except for mild psychomotor retardation. Cooperative with exam and mild to moderate distress. Speech was decreased rate and volume. Mood described as anxious and depressed, affect congruent and tearful. Thought process organized. Thought content: Patient denied suicidal or homicidal ideation, there were no delusions reported or noted, he denied any auditory or visual hallucinations. Reports a passive wish, expressing that if they didn't wake up, it would be fine, but denies any active suicidal ideation or intent to harm themselves. Describes feeling very angry and overwhelmed when anxious, with anxiety being sporadic and not occurring every day. Reports feeling sad and empty, with depression impacting their desire to engage in activities. Describes a cycle of insomnia and hypersomnia, with some nights of no sleep and some days of excessive sleep. Stressors include family dynamics and relationship with mother, as well as the recent of a friend in May 2023. Mood is described as better than before, but still impacted by depression. Attention and concentration were intact and memory appeared mostly reliable but no more formally tested. He is alert and oriented x 3. Insight and judgment are limited and impulse control is impaired. Vitals/I&O/Wt Last Vital Signs Temp 97.8 F 05/09/24 06:00 Pulse 89 05/09/24 06:00 Resp 12 05/09/24 06:00 BP 101/63 05/09/24 06:00 Pulse Ox 96 05/09/24 06:00 O2 Del Method Room Air 05/09/24 06:00 Weight last 48 hrs Weight 61.235 kg Data NPU 05/08/24 00:20 05/08/24 00:20 A&P Assessment and plan (1) Depression: Qualifiers: Depression Type: major depressive disorder Major depression recurrence: recurrent Active/Remission status: currently active Major depression episode severity: mild Qualified Code(s): F33.0 - Major depressive disorder, recurrent, mild (2) Type 1 diabetes mellitus: Qualifiers: Diabetes mellitus complication status: with hyperglycemia Qualified Code(s): E10.65 - Type 1 diabetes mellitus with hyperglycemia (3) PTSD (post-traumatic stress disorder): (4) Anxiety: Plan This is a 24-year-old white male with a significant history of trauma, depression, anxiety but limited mental health treatment presents today after having an intentional overdose. The patient is experiencing significant anxiety and depression, which have been persistent since their teenage years. The anxiety is described as sporadic, often triggered by overwhelming situations, and is associated with feelings of anger and discomfort. The depression is characterized by feelings of sadness, emptiness, and a lack of interest in activities, along with sleep disturbances and low energy. The patient has a history of passive wishes but denies any active suicidal ideation or self- injurious behavior prior to the recent incident. The recent overdose incident appears to be an impulsive act rather than a premeditated attempt at self-harm, and the patient expresses regret and a desire not to repeat such behavior. There is no history of psychiatric hospitalization or consistent mental health treatment, although the patient has been prescribed Buspar for anxiety, which they have not been taking regularly. The patient also reports a history of trauma, including a recent significant loss of a friend, which may be contributing to their current mental health state. 1. Continue current medications. We will initiate propranolol 20 mg p.o. 3 times daily as needed and consider a scheduled antidepressant/antianxiety medication. 2. Continue every 15 minute checks for safety. 3. Encourage individual, group and milieu therapy. 4. Encourage sober living treatment after discharge at the highest level of care to which he is willing to commit. 5. Obtain collateral information. Involuntary Hold Information 2 96 Hour Hold: 96 Hour Involuntary Admission: Yes 96 Hour Hold Ending Date: 05/12/24 96 Hour Hold Ending Time: 00:30 Other Hold: Hold End Date: 05/12/24 Attestations NPU 2 Medical Necessity Statement*: Inpatient hospitalization is medically necessary and the clinically appropriate intervention at this time. We we will monitor/initiate medications and make changes as indicated. Likely length of stay 2-4 days. Coding Level of Care Code Acute Code for Chg Fwd Diagnoses Mild episode of recurrent major depressive disorder F33.0 Depression Type: major depressive disorder Major depression recurrence: recurrent Active/Remission status: currently active Major depression episode severity: mild Type 1 diabetes mellitus E10.65 Diabetes mellitus complication status: with hyperglycemia PTSD (post-traumatic stress disorder) F43.10 Anxiety F41.9
[2024-05-09 14:00] VITALS: BP 117/76; PULSE 93; RESP 16; TEMP 36.6; O2SAT 98
[2024-05-09 16:59] LABS: Glucose Point of Care 359 mg/dL (70-110)
[2024-05-09 19:39] LABS: Glucose Point of Care 147 mg/dL (70-110)
[2024-05-09 19:45] VITALS: BP 132/88; PULSE 95; RESP 16; TEMP 37.2; O2SAT 98
[2024-05-09] MEDS: trazodone 50 mg Tablet PO (20:25)
[2024-05-09] MEDS: hyDROXYzine 25 mg Capsule 50 MG PO (20:25)
[2024-05-09 21:52] LABS: Glucose Point of Care 46 mg/dL (70-110)
--- NOTE | 2024-05-09 21:54 | PC.NURSE ---
at 0, pt up to desk stating he felt like his sugar level was low. recheck of accu check resulted of 46. pt given a sandwich and 240ml orange juice with 8 packs of sugar in it. pt advised if he wanted pudding or ice cream to let staff know. Dr Watson notified of low accu check, and also of giving a sandwich with OJ with 8 packets of sugar in it. will recheck blood sugar again at 2229.
[2024-05-09 22:30] LABS: Glucose Point of Care 112 mg/dL (70-110)
[2024-05-10 06:00] VITALS: BP 115/63; PULSE 85; RESP 18; TEMP 36.6; O2SAT 96
[2024-05-10 07:09] LABS: Glucose Point of Care 285 mg/dL (70-110)
[2024-05-10] MEDS: insulin lispro 100 unit/1 mL SUBCUT ×3 (07:49→20:40)
[2024-05-10] MEDS: insulin glargine 100 units/1 mL 64 UNIT SUBCUT (08:42)
[2024-05-10 11:45] LABS: Glucose Point of Care 125 mg/dL (70-110)
[2024-05-10] MEDS: hyDROXYzine 25 mg Capsule 50 MG PO (13:52)
[2024-05-10 14:00] VITALS: BP 121/83; PULSE 68; RESP 18; TEMP 36.8; O2SAT 96
[2024-05-10 16:49] LABS: Glucose Point of Care 201 mg/dL (70-110)
--- NOTE | 2024-05-10 17:56 | P.NPUPN_ITS ---
Subjective NPU 2 Subjective: Patient presented today reporting that he is doing a little better. He has been able to come down over the past couple days and acknowledged the situation that he created by his overuse of medication. He endorsed an openness to follow-up and working with the social work team on outpatient appointments. We discussed the plan for discharge tomorrow. Mental Status Exam 2 MSE Comments: This is a tall slender white male in hospital scrubs with adequate grooming and eye contact. No abnormal movements except for mild psychomotor retardation. Cooperative with exam in no acute distress. Speech was more normal rate and volume. Mood described as anxious and depressed, affect congruent and tearful. Thought process organized. Thought content: Patient denied suicidal or homicidal ideation, there were no delusions reported or noted, he denied any auditory or visual hallucinations. Attention and concentration were intact and memory appeared mostly reliable but no more formally tested. He is alert and oriented x 3. Insight and judgment are limited and impulse control is impaired. Vitals/I&O/Wt Last Vital Signs Temp 98.3 F 05/10/24 14:00 Pulse 68 05/10/24 14:00 Resp 18 05/10/24 14:00 BP 121/83 05/10/24 14:00 Pulse Ox 96 05/10/24 14:00 O2 Del Method Room Air 05/10/24 06:00 Data NPU 05/08/24 00:20 05/08/24 00:20 A&P Assessment and plan (1) Depression: Qualifiers: Depression Type: major depressive disorder Major depression recurrence: recurrent Active/Remission status: currently active Major depression episode severity: mild Qualified Code(s): F33.0 - Major depressive disorder, recurrent, mild (2) Type 1 diabetes mellitus: Qualifiers: Diabetes mellitus complication status: with hyperglycemia Qualified Code(s): E10.65 - Type 1 diabetes mellitus with hyperglycemia (3) PTSD (post-traumatic stress disorder): (4) Anxiety: Plan This is a 24-year-old white male with a significant history of trauma, depression, anxiety but limited mental health treatment presents today after having an intentional overdose. The patient is experiencing significant anxiety and depression, which have been persistent since their teenage years. The anxiety is described as sporadic, often triggered by overwhelming situations, and is associated with feelings of anger and discomfort. The depression is characterized by feelings of sadness, emptiness, and a lack of interest in activities, along with sleep disturbances and low energy. The patient has a history of passive wishes but denies any active suicidal ideation or self- injurious behavior prior to the recent incident. The recent overdose incident appears to be an impulsive act rather than a premeditated attempt at self-harm, and the patient expresses regret and a desire not to repeat such behavior. There is no history of psychiatric hospitalization or consistent mental health treatment, although the patient has been prescribed Buspar for anxiety, which they have not been taking regularly. The patient also reports a history of trauma, including a recent significant loss of a friend, which may be contributing to their current mental health state. 1. Continue current medications. We will initiate propranolol 20 mg p.o. 3 times daily as needed and consider a scheduled antidepressant/antianxiety medication. 2. Continue every 15 minute checks for safety. 3. Encourage individual, group and milieu therapy. 4. Encourage sober living treatment after discharge at the highest level of care to which he is willing to commit. 5. Obtain collateral information. Involuntary Hold Information 2 96 Hour Hold: 96 Hour Involuntary Admission: Yes 96 Hour Hold Ending Date: 05/12/24 96 Hour Hold Ending Time: 00:30 Other Hold: Hold End Date: 05/12/24 Attestations NPU 2 Medical Necessity Statement*: Inpatient hospitalization is medically necessary and the clinically appropriate intervention at this time. We we will monitor/initiate medications and make changes as indicated. Likely length of stay 1-3 days. Coding Level of Care Code Acute Code for Chg Fwd Diagnoses Mild episode of recurrent major depressive disorder F33.0 Depression Type: major depressive disorder Major depression recurrence: recurrent Active/Remission status: currently active Major depression episode severity: mild Type 1 diabetes mellitus E10.65 Diabetes mellitus complication status: with hyperglycemia PTSD (post-traumatic stress disorder) F43.10 Anxiety F41.9
[2024-05-10 20:46] LABS: Glucose Point of Care 326 mg/dL (70-110)
[2024-05-10 20:52] VITALS: BP 134/87; PULSE 97; RESP 16; TEMP 36.9; O2SAT 99
[2024-05-11 06:00] VITALS: BP 113/76; PULSE 103; RESP 16; TEMP 36.6; O2SAT 98
[2024-05-11 06:12] LABS: Glucose Point of Care 65 mg/dL (70-110)
[2024-05-11 07:05] LABS: Glucose Point of Care 148 mg/dL (70-110)
[2024-05-11] MEDS: insulin glargine 100 units/1 mL 64 UNIT SUBCUT (09:11)
--- NOTE | 2024-05-11 09:23 | P.NPUDS_ITS ---
Diagnoses at Discharge Discharge Diagnosis (1) Depression: Status: Acute Qualifiers: Depression Type: major depressive disorder Major depression recurrence: recurrent Active/Remission status: currently active Major depression episode severity: mild Qualified Code(s): F33.0 - Major depressive disorder, recurrent, mild (2) Type 1 diabetes mellitus: Status: Acute Qualifiers: Diabetes mellitus complication status: with hyperglycemia Qualified Code(s): E10.65 - Type 1 diabetes mellitus with hyperglycemia (3) PTSD (post-traumatic stress disorder): Status: Acute (4) Anxiety: Status: Acute Reason for Visit Reason for Visit: SI Brief History: Chief Complaint: SI HPI NPU History of Present Illness Max Duggan is a 24 year old male who presented to the emergency department with the following report: Chief Complaint: Psychiatric Symptoms Stated Complaint: SI Time Seen by Provider: 05/08/24 00:03 Source: patient Mode of arrival: EMS Limitations: no limitations History of Present Illness: Patient is a 24-year-old male with past medical history of type 1 diabetes and depression who presents the emergency department by ambulance due to suicide attempt onset tonight. Patient took unknown amount of Busbar, of which she subsequently threw back up into the pill bottle. He states he has had a lot of little things happen recently that caused him to commit suicide tonight, and he does confirm that this was not an attempt to kill himself. He denies any previous suicide attempts. He states that his mom found him throwing up the pills, and [id number] who brought the patient in for evaluation. He denies ever seeing a psychiatrist, reviewing his med list it appears that he does not take BuSpar prescribed, only escitalopram. Also of note he had a second bottle of Paxil that he planned on taking as well. He states he feels fine at this time, no symptoms other than his chronic depression. He is tearful, his vitals are normal. He denies any homicidal ideations, hallucinations, drug use, or other symptoms. MD complaint: suicidal ideation and feels depressed History of same: Yes Associated symptoms: Reports depression and suicidal ideation; Deny auditory hallucinations, visual hallucinations or homicidal ideation Treatments prior to arrival: none If self harm: admits thoughts of self harm, has plan, has acted on plan and intentional overdose Details of plan: Attempted to overdose on BuSpar and paroxetine. He was admitted to the neuropsychiatric unit for definitive treatment of those issues. He is unknown to inpatient or outpatient services at [facility] psychiatry. He has been on medication but reports that it has been ineffective. He presents today reporting: Chief complaint Overdose on multiple medications following an argument with mother. History of the present complaint The patient, born on 2000, reports not taking her prescribed anxiety medication, Buspar, regularly as she feels it has not been effective. She has been prescribed Buspar for approximately six months to a year. She previously took Lexapro, also prescribed by her primary care doctor, but discontinued it for the same reason. The patient describes a recent incident that led to her hospital visit. She had an argument with her mother, the details of which she cannot recall. In a moment of distress, she went to the kitchen, took a handful of migraine pills, and ingested them. She spat out a significant amount because they gagged her. Her mother, hearing the commotion, entered her room, leading to a confrontation. The patient then left the house, feeling the need to escape the situation. Her mother found her, picked her up, and took her to the ambulance station, from where she was brought to the hospital. The patient has never been to a psychiatric hospital before and has not received any mental health treatment, despite being set up to see a therapist in the past. She did not follow through due to the long waiting time. She has no history of self-injurious behavior, such as cutting or burning herself, and has never acted on suicidal thoughts before the recent incident. The patient reports a long-standing history of depression, feeling sad and empty most of the time. She experiences fluctuating sleep patterns, sometimes not sleeping at all and other times sleeping excessively. Her energy levels are generally low when she is depressed. She has had passive wishes, feeling that it would be fine if she did not wake up the next day, but has never actively wanted to kill herself. She describes her anxiety as making her feel very angry and overwhelmed, though it does not involve constant what if scenarios or paranoia. She does not experience hallucinations or paranoia. The patient has a history of nightmares and flashbacks, which occur regularly. She does not have intrusive thoughts that compel her to act in certain ways. She has never been diagnosed with ADHD but feels that she has difficulty following through on tasks and exhibits impulsivity. The patient has a family history of addiction on her mother's side but no known family history of mental health issues or suicide attempts. She was diagnosed with type 1 diabetes at the age of [age] and had a 504 plan in school to manage her condition. She has no other significant medical history or surgeries, except for a broken collarbone as a child. The patient identifies as bisexual and has had a three-year relationship, which ended recently. She lives with her mother and siblings in a house and works at a [employer]. She has experienced challenges with her sexuality, particularly within her family, who are Buddhism and have difficulty accepting it. She feels that her relationship with her mother is strained, particularly due to her mother's relationship with a man who previously caused her mother significant distress. The patient reports that her current living situation is not ideal but feels she has no other family to turn to. She expresses gratitude for her mother's support but also frustration with their relationship dynamics. She acknowledges that living with her mother provides some financial and emotional stability, despite the challenges. Were you seeing me or is the doctor well I'm the doctor but I'm I'm I'm moving along I'm waiting for Doctor Alec well I'm Doctor Walter but yeah yeah where is my boy Panky there's Pinky of the hanky type there's Max at the non banking table who presented to the emergency department with the following report: He was admitted to the neuropsychiatric unit for definitive treatment of those issues she was admitted he was admitted to the neuropsychiatric unit for definitive treatment of those issues. His unknown to inpatient or outpatient services at [facility]. He has been on mediation that reports that it has been ineffective. He presents today reporting: Mental health history Diagnosed with anxiety and depression, with symptoms reportedly starting in later teenage years. Has been prescribed Buspar for anxiety but has not been taking it regularly due to perceived ineffectiveness. Previously took Lexapro before Buspar, also found it ineffective. No prior psychiatric hospitalizations or therapy sessions, although an appointment was set up in the past but not attended. Reports a history of passive wishes but denies active suicidal ideation or attempts until the recent incident. No history of self-injurious behavior. Experiences anxiety characterized by feelings of anger and being overwhelmed, without paranoia or hallucinations. Reports nightmares and flashbacks regularly. No family history of mental health issues known, but maternal side has a history of addiction. Social history Lives with mother and three younger half-siblings in a house. Works at the [employer]. Previously worked at a [employer] and at [employer] for 4.5 years. 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 Identifies as bisexual. Longest relationship lasted three years, currently not in a relationship. No children. No service. Family is Buddhism, but unsure about personal alevism beliefs. Vapes since age 19 (2019). Social alcohol and cannabis use, started in 2019. No other drug use. No history of legal problems except a booking for a failure to appear on a speeding ticket. Diagnosed with type 1 di abetes at age [age], currently not well-managed. No pets except an outside dog belonging to her brother. Hospital Course Hospital Course He acclimated to the individual, group and milieu therapies provided. He presented unknown to the neuropsychiatric unit in the past. He presented with a suicide note. He was on a 96-hour hold and was monitored against the backdrop of those concerns. He was given as needed medication including Vistaril and propranolol. He had significant improvement during his stay and was able to contract for safety outside of the hospital prior to discharge. During the hospitalization, patient had routine laboratory studies which were within normal limits except for few outliers. Additionally there was a general medical evaluation which was also within normal limits and revealed no new acute processes. At the time of discharge, lethality was denied and psychosis was resolving. Moo d and anxiety were well managed. Patient endorsed a plan to avoid all drugs of abuse and follow-up with the aftercare recommendations of the treatment team. Patient was evaluated and deemed to be absent credible lethality, and had the maximum benefit of inpatient hospitalization, so was discharged. Involuntary Hold Information 96 Hour Hold: 96 Hour Involuntary Admission: Yes 96 Hour Hold Ending Date: 05/12/24 96 Hour Hold Ending Time: 00:30 Other Hold: Hold End Date: 05/12/24 Mental Status Exam MSE Comments: This is a tall slender white male in hospital scrubs with adequate grooming and eye contact. No abnormal movements except for mild psychomotor retardation. Cooperative with exam in no acute distress. Speech was more normal rate and volume. Mood described as better, affect congruent. Thought process organized. Thought content: Patient denied suicidal or homicidal ideation, there were no delusions reported or noted, he denied any auditory or visual hallucinations. Attention and concentration were intact and memory appeared mostly reliable but no more formally tested. He is alert and oriented x 3. Insight and judgment are limited and impulse control is impaired. Discharge Data Studies Completed and Pending: Laboratory Results WBC 10.13 10^3/uL (3. 29-11.43) 05/08/24 00:20 RBC 4.73 10^6/uL (3.8 5-5.65) 05/08/24 00:20 Hgb 14.20 g/dL (11.27 -16.99) 05/08/24 00:20 Hct 40.1 % (37-53) 05/08/24 00:20 MCV 84.8 fl (82-101) 05/08/24 00:20 MCH 30.0 pg (27-33) 05/08/24 00:20 MCHC 35.4 g/dL (30-55) 05/08/24 00:20 RDW 11.3 % (12.1-15.1 ) L 05/08/24 00:20 Plt Count 270 10^3/cmm (157 -399) 05/08/24 00:20 MPV 8.8 fL (7.4-10.4) 05/08/24 00:20 Neut % (Auto) 63.8 % 05/08/24 00:20 Lymph % (Auto) 28.7 % 05/08/24 00:20 Navarro % (Auto) 5.7 % 05/08/24 00:20 Eos % (Auto) 0.8 % 05/08/24 00:20 Baso % (Auto) 0.5 % 05/08/24 00:20 Neut # (Auto) 6.46 10^3/uL (1.8 -7.7) 05/08/24 00:20 Lymph # (Auto) 2.9 10^3/uL (0.8- 4.8) 05/08/24 00:20 Navarro # (Auto) 0.6 10^3/uL (0.2- 0.9) 05/08/24 00:20 Eos # (Auto) 0.1 10^3/uL (0.0- 0.8) 05/08/24 00:20 Baso # (Auto) 0.1 10^3/uL (0.0- 0.1) 05/08/24 00:20 Nucleated RBC % (a uto) 0 % 05/08/24 00:20 Nucleated RBCs # 0.0 /100WBC 05/08/24 00:20 Sodium 139 mmol/L (136-1 45) 05/08/24 00:20 Potassium 4.4 mmol/L (3.5-5 .1) 05/08/24 00:20 Chloride 101 mmol/L (98-10 7) 05/08/24 00:20 Carbon Dioxide 28 mmol/L (22-29) 05/08/24 00:20 Anion Gap 14.4 (5-19) 05/08/24 00:20 BUN 12 mg/dL (6-20) 05/08/24 00:20 Creatinine 0.8 mg/dL (0.7-1. 2) 05/08/24 00:20 GFR Calculation 118.8 mL/min (90- 130) 05/08/24 00:20 Glucose 405 mg/dL (65-115 ) H 05/08/24 00:20 POC Glucose 148 mg/dL (70-110 ) H 05/11/24 07:02 Calculated Osmolal ity 305 mOsm/kg (285- 295) H 05/08/24 00:20 Calcium 9.1 mg/dL (8.5-10 .5) 05/08/24 00:20 Total Bilirubin 0.5 mg/dL (0.15-1 .2) 05/08/24 00:20 AST 14 U/L (0-40) 05/08/24 00:20 ALT 13 U/L (0-41) 05/08/24 00:20 Alkaline Phosphata se 113 U/L (40-130) 05/08/24 00:20 Total Protein 7.0 g/dL (6.6-8.7 ) 05/08/24 00:20 Albumin 4.2 g/dL (3.5-5.2 ) 05/08/24 00:20 Globulin 2.8 g/dL (1.3-4.6 ) 05/08/24 00:20 Salicylates < 0.3 mg/dL (3-10 ) L 05/08/24 00:20 Urine Opiates Scre en Negative ng/mL (N egative) 05/08/24 00:42 Acetaminophen < 5.0 ug/mL (10-3 0) L 05/08/24 00:20 Ur Barbiturates Sc reen Negative ng/mL (N egative) 05/08/24 00:42 Ur Phencyclidine S crn Negative ng/mL (N egative) 05/08/24 00:42 Ur Amphetamines Sc reen Negative ng/mL (N egative) 05/08/24 00:42 U Benzodiazepines Scrn Negative ng/mL (N egative) 05/08/24 00:42 Urine Cocaine Scre en Negative ng/mL (N egative) 05/08/24 00:42 U Marijuana (THC) Screen Positive ng/mL (N egative) H 05/08/24 00:42 Ethyl Alcohol < 10 mg/dL (0-10) 05/08/24 00:20 Vitals: Last Vital Signs Temp 97.9 F 05/11/24 06:00 Pulse 103 H 05/11/24 06:00 Resp 16 05/11/24 06:00 BP 113/76 05/11/24 06:00 Pulse Ox 98 05/11/24 06:00 O2 Del Method Room Air 05/11/24 06:00 Discharge Plan Discharge Patient Disposition: Home Condition: Stable Prescriptions: New propranolol 20 mg Tablet 20 mg PO TID PRN (Reason: Anxiety) 30 Days Qty: 90 1RF hydroxyzine pamoate 25 mg Capsule 50 mg PO Q6H PRN (Reason: Anxiety) 30 Days Qty: 120 1RF Continued (DME) Dexcom G6 Social Services Coordinator Misc See Rx Instructions .Route Qty: 1 0RF Rx Instructions: As directed (DME) Dexcom G6 Sensor Device See Rx Instructions .Route Qty: 3 3RF Rx Instructions: As directed (DME) Dexcom G6 Transmitter Device See Rx Instructions .Route Qty: 1 3RF Rx Instructions: As directed (DME) ulnar gutter fast form See Rx Instructions .Route .MEDSUPPLY Qty: 1 0RF Rx Instructions: As directed (DME) V-GO 40 Device See Rx Instructions .Route Qty: 30 0RF Rx Instructions: As directed acetaminophen 500 mg Capsule 1,000 mg PO Q6H PRN (Reason: Pain) insulin glargine [Lantus Solostar U-100 Insulin] 100 unit/mL (3 mL) insulin pen 64 unit SUBCUT DAILY insulin aspart U-100 [Novolog FlexPen U-100 Insulin] 100 unit/mL (3 mL) insulin pen 2 unit SUBCUT TIDWM Discharge Orders: Discharge Order (Routine); Ordered 05/11/24 Ordered By: Willie Watson Referrals: [facility] [Outside] - 05/16/24 12:30 pm (Intial assessment for services with Sarai) Ree Mason APN [Primary Care Provider] - Discharge Diet: Diabetic Discharge Activity: Resume usual activity Patient Instructions: Opioid Safety Discharge Attestations NPU Time Spent in Discharge Care*: less than 30 min Specific Discharge Activities: Specific discharge activities: educating patient, discussing with case liner/social workers/dc planners, documenting/other paperwork and evaluating patient/reviewing data Coding Level of Care Code Acute Code for Chg Fwd Diagnoses Mild episode of recurrent major depressive disorder F33.0 Depression Type: major depressive disorder Major depression recurrence: recurrent Active/Remission status: currently active Major depression episode severity: mild Type 1 diabetes mellitus E10.65 Diabetes mellitus complication status: with hyperglycemia PTSD (post-traumatic stress disorder) F43.10 Anxiety F41.9
[2024-05-11 10:13] VITALS: BP 113/76; PULSE 103; RESP 16; TEMP 36.6; O2SAT 98
== END 2024-05-11 11:05 | disposition home or self-care (01) | DRG 918 ==
LOC: ER 05-08 02:47 → NP 05-08 05:55
PROVIDERS: Physician Assistant; Admitting Provider Psychiatry & Neurology Psychiatry; Emergency Provider Emergency Medicine; PCP Nurse Practitioner Family; Visit Provider Psychiatry & Neurology Psychiatry
DX: T43.592A Poisoning by other antipsychotics and neuroleptics, intentional self-harm, initial encounter (principal); F33.0 Major depressive disorder, recurrent, mild; R45.851 Suicidal ideations; E10.9 Type 1 diabetes mellitus without complications; F43.10 Post-traumatic stress disorder, unspecified; F41.9 Anxiety disorder, unspecified
CPT/HCPCS: 36415; 36416; 80053; 80306; 80307; 82962; 85025; 96372; 97150; 97165; 99285; J1815